=== PATIENT | male | born 1960 | race Caucasian/White ===

== ENCOUNTER 2021-05-14 08:36 | Outpatient (REF) | payer MEDICARE, MEDICAID, SELFPAY ==
--- NOTE | ~2021-05-14 | XR_ITS ---
EXAMINATION: XR SHOULDER, RIGHT CLINICAL INFORMATION: Pain in the shoulder COMPARISON: None TECHNIQUE: Three views of the right shoulder. FINDINGS: There is no fracture or dislocation. The right glenohumeral joint is well aligned. The joint space is maintained. The acromioclavicular joint is intact. The visualized lung is clear. The visualized ribs are intact. XR/XR shoulder RT min 2V IMPRESSION: Normal right shoulder.
== END 2021-05-14 08:37 | disposition home or self-care (01) ==
LOC: HO.HOSX 08:36
PROVIDERS: Visit Provider Orthopaedic Surgery
DX: M25.511 Pain in right shoulder (principal); M67.911 Unspecified disorder of synovium and tendon, right shoulder; I10 Essential (primary) hypertension; Z86.73 Personal history of transient ischemic attack (TIA), and cerebral infarction without residual deficits; Z88.7 Allergy status to serum and vaccine
CPT/HCPCS: 20610; 73030; 99202; J1100

== ENCOUNTER 2021-06-22 13:00 | Outpatient (RCR) | payer MEDICARE, MEDICAID, SELFPAY ==
--- NOTE | 2021-05-21 15:40 | MHC.PT.EP ---
[facility] [place] Office [place] Office [place] Office [address] Emanuel Rizvi [address] [phone] F: [phone] F: [phone] F: [phone] F: [phone] Physical Therapy Plan of Care Date of Evaluation: Date of Surgery: Diagnosis: RIGHT ROTATOR CUFF REPAIR Assessment: CRISTIN IS A PLEASANT 60 YO MALE S/P RIGHT ROTATOR CUFF INJURY. UPON EXAM HE PRESENTS WITH SIGNIFICANT LOSS OF RANGE, DECREASED STRENGTH WITH MUSCULAR LENGTH AND STRENGTH IMBALANCES LEADING TO POOR JOINT MECHANICS AND INCREASED PAIN. FUNCTIONAL LIMITATIONS INCLUDE DECREASED ABILITY TO PERFORM SELF CARE AND HOMEMAKING TASKS, DECREASED ABILITY TO PERFORM LIFTING REACHING, PUSHING, PULLING AND CARRYING. HE REPORTS DECREASED PARTICIPATION WITH COMMUNITY AND RECREATIONAL ACTIVITIES AND DISRUPTED SLEEP. A PT IS A GOOD CANDIDATE FOR SKILLED PT DUE TO AGE, POTENTIAL REMEDIATION OF IMPAIRMENTS, TYPICAL DISEASE/CONDITION PROGRESSION AND PROGNOSIS, COMORBIDITIES, AND MOTIVATION. PT WOULD BENEFIT FROM TAILORED PROGRAM OF THERAPEUTIC ACTIVITIES, FUNCTIONAL TRAINING, GAIT TRAINING, POSTURAL EDUCATION, NEUROMUSCULAR RE-EDUCATION, AND MODALITIES NEEDED. Frequency and Duration: The patient will be seen 2 X WEEK FOR 4 WEEKS UNTIL MD FOLLOW UP FOR REASSESS Short Term Goals: INITIATE HEP FOR AAROM AND UPPER BACK STRENGTHENING IN 2 VISITS EDUC IN AND PERFORM SELF MANAGEMENT OF SYMPTOMS IN 2 VISITS Prison Goals: 120 degrees of shoulder elevation with pain free ROM in 4 weeks UE strength at minimum 4/5 in 4 weeks To perform computer and work tasks without restriction and pain no greater than 2/10 [address] object at minimum of 5# into cabinet at shoulder height in 5 weeks Treatment Plan: Modalities to reduce pain, spasms and effusion. Manual therapy to restore motion and function. Therapeutic exercise to improve strength and flexibility. Neuromuscular re-education for posture and balance. Therapeutic activities to return to functional activities of daily living. Electronically signed by: Elma Berkowitz PT, DPT Please sign and return to therapist. Thank you for your referral.
--- NOTE | 2021-07-30 10:41 | MHC.PT.DC ---
[facility] [place] Office [place] Office [place] Office [address] Emanuel Rizvi [address] [phone] F: [phone] F: [phone] F: [phone] F: [phone] Physical Therapy Discharge Report Diagnosis: RIGHT ROTATOR CUFF REPAIR Date of Surgery: 01/12/21 DOI Date of Evaluation: 05/21/21 Date of Discharge: 06/22/21 Treatments to Date: 8 Cancellations to Date: 1 No Shows to Date: 0 Discharge Status: Discharge Summary: At last attended visit, pt arrived highly emotional due to reported pain, lack of sleep and limited shoulder use. 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 Lower with supine heat. right sh in POS. Pt ed on px management, relaxation and breathing techniques during session and was encouraged to follow up with orthopedics. Electronically signed by: Elma Berkowitz PT, DPT Please sign and return to therapist. Thank you for your referral.
== END 2021-07-30 10:42 | disposition home or self-care (01) ==
LOC: HO.PT 13:00
PROVIDERS: PCP Family Medicine; Visit Provider Orthopaedic Surgery
DX: M67.911 Unspecified disorder of synovium and tendon, right shoulder (principal)
CPT/HCPCS: 97110; 97161

== ENCOUNTER → 2021-06-25 08:33 | Outpatient (BNVA) | payer MEDICARE, MEDICAID, SELFPAY | PROVIDERS: PCP Family Medicine; Visit Provider Orthopaedic Surgery | DX: M75.101 Unspecified rotator cuff tear or rupture of right shoulder, not specified as traumatic (principal); Z86.73 Personal history of transient ischemic attack (TIA), and cerebral infarction without residual deficits | CPT/HCPCS: 99212 ==

== ENCOUNTER → 2021-07-23 11:25 | Outpatient (BNVA) | payer MEDICARE, MEDICAID, SELFPAY | PROVIDERS: PCP Nurse Practitioner Family; Visit Provider Physician Assistant | DX: Z01.818 Encounter for other preprocedural examination (principal); M67.911 Unspecified disorder of synovium and tendon, right shoulder | CPT/HCPCS: 99212 ==

== ENCOUNTER 2021-07-27 10:11 | Day surgery (SDC) | payer MEDICARE, MEDICAID, SELFPAY ==
[2021-07-23 15:50] VITALS: BMI 25.7
--- NOTE | 2021-07-26 10:51 | HO.ANESPROP2 ---
Documented by User: Fabiola Ruiz NP 07/26/21 10:52 HPI - Anesthesia Eval Consult details Narrative: 60yo M for Right Arthroscopic Rotator Cuff Repair hx of CVA 08/2020, mult TIA PMFSH Active Problems Active Problems: All Active Problems (Updated 07/13/21 @ 11:21 by KORI ZamoranoC) History of TIA (transient ischemic attack) (Acute) Essential hypertension (Acute) Encounter to establish care (Acute) History of stroke (Acute) Rotator cuff tear, right (Acute) Dysfunction of right rotator cuff (Acute) Past Medical History Medical History History of stroke History of TIA (transient ischemic attack) Hypertension Kidney stones Family History Family History Mother Essential hypertension Father CAD (coronary artery disease) Brother Brain cancer Surgical History Surgical History History of kidney surgery Previous back surgery Social History Social History Housing: Apartment Alcohol intake: current Alcohol intake frequency: holidays/special occasions only Patient Tobacco Use Status: Current everyday Tobacco user Tobacco use type: Cigarette Cigarettes Per Day: 6 e-Cigarette/Vaping Use: Never Used Second Hand Smoke Exposure: Yes Use of substances other than those prescribed or required for medical reasons: No Are you DNR?: No Advance Directives: No Advance Directives Information Provided: Yes service: No Current occupational status: disabled Cognitive needs: No Hearing needs: No Vision needs: No Meds Allergies Allergy/AdvReac Type Severity Reaction Status Date / Time pneumococcal vaccine Allergy Severe ANAPHYLAXIS Verified 07/27/21 10:43 [PNEUMOCOCCAL VACCINE] FLU VACCINE [id number] (3 YR Allergy Intermediate ANAPHYLAXIS Uncoded 07/23/21 11:38 +) Home Medications Medication Instructions Recorded Confirmed Last Taken Type atorvastatin 20 mg tablet 20 mg PO DAILY 05/14/21 07/23/21 Unknown History lisinopril 5 mg tablet 5 mg PO DAILY 05/14/21 07/23/21 Unknown History amlodipine 5 mg tablet mg 07/23/21 07/27/21 08:30 History clonidine HCl 0.1 mg tablet mg 07/23/21 Unknown History metoprolol tartrate 25 mg tablet 25 mg 07/23/21 07/27/21 08:30 History omeprazole 20 mg capsule,delayed 20 mg PO DAILY 07/23/21 07/23/21 07/27/21 08:30 History release quetiapine 25 mg tablet mg 07/23/21 Unknown History sertraline 50 mg tablet mg 07/23/21 Unknown History Exam Exam Date and Time: July 26, 2021 1051 Height,Weight and Vital Signs: Height 5 ft 11 in Weight 83.461 kg Assessment and Plan Assessment Anesthesia Assessment: Chart Reviewed Documented by User: Quinn Syed MD 07/27/21 12:47 PMFSH Past Medical History Medical History History of stroke History of TIA (transient ischemic attack) Hypertension Kidney stones Family History Family History Mother Essential hypertension Father CAD (coronary artery disease) Brother Brain cancer Family history of problems with anesthesia: No Surgical History Surgical History History of kidney surgery Previous back surgery History of Problems with Anesthesia: No Social History Social History Housing: Apartment Alcohol intake: current Alcohol intake frequency: holidays/special occasions only Patient Tobacco Use Status: Current everyday Tobacco user Tobacco use type: Cigarette Cigarettes Per Day: 6 e-Cigarette/Vaping Use: Never Used Second Hand Smoke Exposure: Yes Use of substances other than those prescribed or required for medical reasons: No Are you DNR?: No Advance Directives: No Advance Directives Information Provided: Yes service: No Current occupational status: disabled Cognitive needs: No Hearing needs: No Vision needs: No Meds Allergies Allergy/AdvReac Type Severity Reaction Status Date / Time pneumococcal vaccine Allergy Severe ANAPHYLAXIS Verified 07/27/21 10:43 [PNEUMOCOCCAL VACCINE] FLU VACCINE [id number] (3 YR Allergy Intermediate ANAPHYLAXIS Uncoded 07/23/21 11:38 +) Home Medications Medication Instructions Recorded Confirmed Last Taken Type atorvastatin 20 mg tablet 20 mg PO DAILY 05/14/21 07/23/21 Unknown History lisinopril 5 mg tablet 5 mg PO DAILY 05/14/21 07/23/21 Unknown History amlodipine 5 mg tablet mg 07/23/21 07/27/21 08:30 History clonidine HCl 0.1 mg tablet mg 07/23/21 Unknown History metoprolol tartrate 25 mg tablet 25 mg 07/23/21 07/27/21 08:30 History omeprazole 20 mg capsule,delayed 20 mg PO DAILY 07/23/21 07/23/21 07/27/21 08:30 History release quetiapine 25 mg tablet mg 07/23/21 Unknown History sertraline 50 mg tablet mg 07/23/21 Unknown History Exam Airway Mallampati Class: II TM Dist: >3cm Loose/Missing/Broken Teeth: Yes, Upper and Lower Assessment and Plan Assessment Anesthesia Assessment: Anesthesia Plan Discussed Final Anesthetic Review Family History of Problems with Anesthesia: No History of Problems with Anesthesia: No NPO: Yes ASA Class: III Final Preanesthetic Review: No Changes in Pt Med Stat, Meds/Allgs Chart Reviewed, Consent Obtained/Reviewed and Anes Risks/Benef Reviewed Patient Risk: Intermediate Procedure Risk: Intermediate Anesthetic Plan Anesthetic Plan: GA and Regional Block Disposition: Standard PACU
[2021-07-27] VITALS (17 sets, daily range): BP systolic 125–164; BP diastolic 87–104; PULSE 72–89; RESP 16–20; TEMP 36.6–37.2; O2SAT 94–99
--- NOTE | 2021-07-27 | ECG_ITS ---
Test Reason : preop Blood Pressure : / mmHG Vent. Rate : 078 BPM Atrial Rate : 078 BPM P-R Int : 170 ms QRS Dur : 108 ms QT Int : 372 ms P-R-T Axes : 062 076 078 degrees QTc Int : 424 ms Normal sinus rhythm Normal ECG No previous ECGs available Referred By: Fabiola Ruiz Electronically Signed By:ABI PEREZ
[2021-07-27 11:00] LABS: Hematocrit 48.1 % (42.0-52.0); Hemoglobin 15.8 g/dl (14.0-18.0); Mean Corpuscular HGB Conc 32.8 g/dl (31.0-36.0); Mean Corpuscular Hemoglobin 30.3 pg (27.0-33.0); Mean Corpuscular Volume 92.1 fL (80.0-98.0); Platelet Count 232 X10*3/uL (160-400); Red Blood Count 5.22 X10*6/uL (4.60-5.80); Red Cell Distribution Width 12.4 % (11.0-16.0); White Blood Count 6.8 X10*3/uL (4.8-10.8)
[2021-07-27 11:20] LABS: Anion Gap 11 (12-20); Blood Urea Nitrogen 18 mg/dL (9-16); Calcium 9.8 mg/dL (8.4-10.2); Carbon Dioxide 27 mmol/L (22-29); Chloride 107 mmol/L (96-108); Creatinine Clr Calc Pharmacy 63.2; Estimated Glomerular Filt Rate 56; Glucose Fasting 109 mg/dL (60-99); Potassium 4.6 mmol/L (3.3-5.1); Sodium 140 mmol/L (135-145)
[2021-07-27] MEDS: Lactated Ringers 1,000 ML 100 ML IVCONT (11:37)
--- NOTE | 2021-07-27 12:42 | MHC.SHP ---
Pre-Procedural Eval Section A Date of Service: 07/27/21 The patient is an INPATIENT: No Changes since office visit: Yes Patient answered all questions; No Cold of Flu in the past 2 weeks, No New Medical Problems and No Changes in Medication The History & Physical has been completed within 30 days and I have reviewed it.: Yes Section B Chief Complaint: disorder of synovium and tendon Allergies: Allergies Allergy/AdvReac Type Severity Reaction Status Date / Time pneumococcal vaccine Allergy Severe ANAPHYLAXIS Verified 07/27/21 10:43 [PNEUMOCOCCAL VACCINE] FLU VACCINE [id number] (3 YR Allergy Intermediate ANAPHYLAXIS Uncoded 07/23/21 11:38 +) Plan I have reviewed the history and physical and performed a pertinent physical examination on my patient. No changes have occurred unless specified.
--- NOTE | 2021-07-27 14:53 | PM.OP ---
Brief Operative Note Date of Service: 07/27/21 Pre-op diagnosis: right rtc tear Post-op diagnosis: same Procedure: right rtc repair Implants: galan and nephew Helacoil x3 Surgeon: Rich Nobles MD Anesthesia: GETA and regional Was an Exhibit Cleaner used for this Procedure?: Yes Exhibit Cleaner: Susy Newberry Estimated blood loss (mL): 10 IV fluids (mL): 1,000 Pathology: none sent Condition: stable Disposition: PACU
[2021-07-27] MEDS: fentaNYL citrate/PF 100 MCG/2 ML VIAL 50 MCG IVPUSH ×3 (15:27→18:34)
[2021-07-27] MEDS: oxyCODONE HCl Immed Release 5 MG TABLET 10 MG PO (16:19)
--- NOTE | 2021-07-31 09:35 | P.OP_ITS ---
Operative Note Operative Note Date of Service: 07/27/21 Narrative: Date of Service: 07/27/21 Pre-op diagnosis: right rtc tear Post-op diagnosis: same Procedure: right rtc repair and SAD Implants: galan and nephew Helacoil x3 Surgeon: Rich Nobles MD Anesthesia: GETA and regional Was an Account Financial Manager used for this Procedure?: Yes Account Financial Manager: Susy Newberry Estimated blood loss (mL): 10 IV fluids (mL): 1,000 Pathology: none sent Condition: stable Disposition: PACU Procedure in detail: Patient was brought to the operating room and placed the the beach chair position. All bony prominences were well padded and the limb was prepped and draped in standard sterile fashion. A time out was called to identify proper site, proper procedure and proper surgeon. IV antibiotics per weight were administered. I began by making a posterolateral stab incision with a 15 blade. A blunt trochar was placed into the glenohumeral joint and I insufflated the joint with saline and a 30 degree arthroscope was placed. I established an outside- in anterior portal just distal to the biceps tendon. I then began my inspection of the glenohumeral joint. There was mild synovitis of the anterior interval. Biceps and anchor were intact with mild labral fraying. Cartilage surfaces were normal and gutter was clean. There was a supraspinatus full thickness tear without retraction. The subscapulais was intact. I then removed the trochar and entered the subacromial space. A direct lateral portal was then established and I performed a bursectomy. The cuff was then examined. There was a full thickness crescentic tear of the anterior 1/3 of the supraspinatus with the leading edge intact. I placed one medial row double loaded anchors and used a scorpion to pass thes through the cuff. I added two looped sutures to the most anterior and posterior aspect of the repair. These 6 sutures were then brought to two lateral anchors in a cross bridge configuration. Prior to this is debrided the footprint down to bleeding bone. I then perfromed a 5 mm subacromial decompression. Once I was satisfied with the repair final images were captured and I removed all instrumentation. Portals were closed with nylon. Patient was placed in an abduction sling, extubated and brought to the recovery room in stable condition. There were no known complications.
== END 2021-07-27 19:51 | disposition home or self-care (01) ==
LOC: HO.SSS 10:12
PROVIDERS: Nurse Practitioner; PCP Family Medicine; Visit Provider Orthopaedic Surgery
PROC: (CPT 29827; principal; 2021-07-27 12:10)
DX: M75.101 Unspecified rotator cuff tear or rupture of right shoulder, not specified as traumatic (principal); M67.911 Unspecified disorder of synovium and tendon, right shoulder; M25.511 Pain in right shoulder; I10 Essential (primary) hypertension; Z86.73 Personal history of transient ischemic attack (TIA), and cerebral infarction without residual deficits; Z87.442 Personal history of urinary calculi; Z79.899 Other long term (current) drug therapy; Z88.7 Allergy status to serum and vaccine; F17.210 Nicotine dependence, cigarettes, uncomplicated
CPT/HCPCS: 29827; 29826; 36415; 80048; 85027; 93005; C1713; J0131; J0171; J0690; J1100; J2250; J2370; J2405; J3010

== ENCOUNTER → 2021-08-02 10:43 | Outpatient (BNVA) | payer MEDICARE, MEDICAID, SELFPAY | PROVIDERS: Visit Provider Physician Assistant | DX: Z98.890 Other specified postprocedural states (principal) | CPT/HCPCS: 99212 ==

== ENCOUNTER → 2021-09-03 11:27 | Outpatient (BNVA) | payer MEDICARE, MEDICAID, SELFPAY | PROVIDERS: Visit Provider Physician Assistant | DX: Z47.89 Encounter for other orthopedic aftercare (principal); Z98.890 Other specified postprocedural states | CPT/HCPCS: 99212 ==

== ENCOUNTER → 2021-09-13 13:13 | Outpatient (BNVA) | payer MEDICARE, MEDICAID, SELFPAY | PROVIDERS: Visit Provider Orthopaedic Surgery | DX: Z98.890 Other specified postprocedural states (principal) | CPT/HCPCS: 99212 ==

== ENCOUNTER 2021-11-05 14:00 | Outpatient (RCR) | payer MEDICARE, MEDICAID, SELFPAY ==
--- NOTE | 2021-08-02 14:58 | MHC.PT.EP ---
[facility] [place] Office [place] Office [place] Office [address] Emanuel Rizvi [address] [phone] F: [phone] F: [phone] F: [phone] F: [phone] Physical Therapy Plan of Care Date of Evaluation: Date of Surgery: 07/27/21 Diagnosis: S/P RIGHT ROTATOR CUFF (SS) W/ SAD 07/27/21 Assessment: CRISTIN IS A PLEASANT 60 YO GENTLEMAN WHO PRESENTS POST-OP RIGHT RTC REPAIR. HE PRESENTS TODAY, POD #6 FOR ORTHOPEDIC FOLLOW UP AND PT EVALUATION. UPON EXAM HE DEMONSTRATES THE EXPECTED IMPAIRMENTS OF DECREASED ROM, DECREASED STRENGTH, ALTERED POSTURE AND POSITIONING, INCREASED UPPER TRAP GUARDING, AND INCREASED PAIN AND EDEMA. FUNCTIONAL LIMITATIONS INCLUDE DECREASED ABILITY TO PERFORM HOMEMAKING AND SELF-CARE TASKS, DECREASED ABILITY TO PERFORM PUSHING, PULLING, LIFTING AND REACHING. INABILITY TO DRIVE AND PERFORM WORK TASKS, DECREASED PARTICIPATION IN COMMUNITY AND RECREATIONAL ACTIVITIES AND DISRUPTED SLEEP. A PT IS A GOOD CANDIDATE FOR SKILLED PT DUE TO AGE, POTENTIAL REMEDIATION OF IMPAIRMENTS, TYPICAL DISEASE/CONDITION PROGRESSION AND PROGNOSIS, COMORBIDITIES, AND MOTIVATION. PT WOULD BENEFIT FROM TAILORED PROGRAM OF THERAPEUTIC ACTIVITIES, FUNCTIONAL TRAINING, GAIT TRAINING, POSTURAL EDUCATION, NEUROMUSCULAR RE-EDUCATION, AND MODALITIES NEEDED. Frequency and Duration: The patient will be seen 2 X WEEK FOR 4 WEEKS Short Term Goals: INITIATE HEP AND PROMOTE SELF MANAGEMENT OF SYMPTOMS INCREASE PROM Intermediate Goals: IN 12 WEEKS FULL, PAIN FREE ROM FULL UE STRENGTH, PAIN FREE TO PERFORM HOMEMAKING TASKS WITHOUT RESTRICTION AND PAIN NO GREATER THAN 2/[address] OBJECT AT MINIMUM OF 5# INTO CABINET AT SHOULDER HEIGHT Treatment Plan: Modalities to reduce pain, spasms and effusion. Manual therapy to restore motion and function. Therapeutic exercise to improve strength and flexibility. Neuromuscular re-education for posture and balance. Therapeutic activities to return to functional activities of daily living. Electronically signed by: JEYSON ELAM PT, DPT Please sign and return to therapist. Thank you for your referral.
== END 2021-11-28 11:01 | disposition home or self-care (01) ==
LOC: HO.PT 14:00
PROVIDERS: Visit Provider Physician Assistant
DX: Z98.890 Other specified postprocedural states (principal)
CPT/HCPCS: 97110; 97112; 97140; 97162

== ENCOUNTER 2021-12-21 14:13 | Emergency (ER) | payer MEDICARE, MEDICAID, SELFPAY ==
--- NOTE | ~2021-12-21 | XR_ITS ---
EXAMINATION: XR LUMBOSACRAL SPINE CLINICAL INFORMATION: Low back pain COMPARISON: Lumbar spine radiographs on 01/09/2012 TECHNIQUE: Three views of the lumbosacral spine. FINDINGS: The vertebral bodies and posterior elements are normal. The disc spaces are preserved and the vertebral alignment is normal. The paraspinal soft tissues are normal. There is a posterior-lateral fusion at L3-L4. No periprosthetic loosening or fracture. XR/XR lumbar spine 2-3V IMPRESSION: No acute abnormality. Expected alignment the orthopedic hardware.
[2021-12-21 15:50] VITALS: BP 191/112; PULSE 97; RESP 16; TEMP 36.6; O2SAT 97; BMI 23.0
--- NOTE | 2021-12-21 17:28 | ED_ITS ---
HPI - General Adult General Chief complaint: Back Pain/Injury Stated complaint: severe back pain Time Seen by Provider: 12/21/21 17:28 Source: patient Mode of arrival: ambulatory Limitations: no limitations History of Present Illness HPI narrative: Patient is a 61 year old male presenting to the emergency department today with left sided low back pain that radiates down his left leg. Patient states that 5 days ago he woke up with left sided low back pain that radiates down his left leg. Patient states that he had a back surgery years ago and this pain feels different. Patient states that he didn't do anything in particular but has been sitting differently while riding his bicycle. Patient denies any dizziness, lightheadedness, abdominal pain, nausea, vomiting, fever, chills, blurry vision, double vision, loss of vision, chest pain, difficulty breathing, shortness of breath, night sweats, pain with urination, increased urinary frequency, increased urinary urgency, blood in his urine or stool, syncope or a near syncopal episode, recent trauma or falls, bowel incontinence, bladder incontinence, bowel retention, bladder retention, or any other complaints at this time. Onset (ago): day(s) (5) Location: back Radiation: extremity and distal Severity: mild Severity scale (1-10): 3 Quality: burning and stabbing Pain Consistency: intermittent Relieving factors: none Exacerbating factors: movement Associated symptoms: denies other symptoms Treatments prior to arrival: none Related Data Home Medications Medication Instructions Recorded Confirmed atorvastatin 20 mg tablet 20 mg PO DAILY 05/14/21 11/02/21 lisinopril 5 mg tablet 5 mg PO DAILY 05/14/21 11/02/21 amlodipine 5 mg tablet mg 07/23/21 11/02/21 clonidine HCl 0.1 mg tablet mg 07/23/21 11/02/21 metoprolol tartrate 25 mg tablet 25 mg 07/23/21 11/02/21 omeprazole 20 mg capsule,delayed 20 mg PO DAILY 07/23/21 11/02/21 release quetiapine 25 mg tablet mg 07/23/21 11/02/21 sertraline 50 mg tablet mg 07/23/21 11/02/21 Previous Rx's Medication Instructions Recorded cyclobenzaprine 5 mg tablet 5 mg PO TID PRN low back pain 7 12/21/21 days #21 tabs Allergies Allergy/AdvReac Type Severity Reaction Status Date / Time pneumococcal vaccine Allergy Severe ANAPHYLAXIS Verified 11/02/21 14:34 [PNEUMOCOCCAL VACCINE] Penicillins [PCN] Allergy Hives Verified 11/02/21 14:34 FLU VACCINE [id number] (3 YR Allergy Intermediate ANAPHYLAXIS Uncoded 11/02/21 14:34 +) Review of Systems Constitutional: Constitutional: Reports no additional constitutional complaints, Denies chills, Denies fever(s) and Denies night sweats Eyes: Eyes: Reports no additional eye complaints, Denies blurry vision, Denies change in vision, Denies diplopia, Denies eye discharge, Denies loss of vision and Denies eye pain ENT: Denies dizziness Cardiovascular: Cardiovascular: Reports no additional cardiovascular complaints, Denies chest pain, Denies lightheadedness, Denies Loss of Consciou sness and Denies dyspnea Respiratory: Respiratory: Reports no additional respiratory complaints and Denies dyspnea Gastrointestinal: Gastrointestinal: Reports no additional gastrointestinal complaints, Denies abdominal pain, Denies melena, Denies hematochezia, Denies change in bowel habits and Denies change in stool character Genitourinary: Genitourinary: Reports no additional male genitourinary complaints, Denies hematuria, Denies oliguria, Denies difficulty urinating, Denies dysuria, Denies urinary frequency, Denies urinary hesitancy, Denies urinary incontinence and Denies urinary urgency Musculoskeletal: Musculoskeletal: Reports no additional musculoskeletal complaints, Reports back pain, Denies numbness and Denies tingling Neurologic: Denies dizziness, Denies loss of vision, Denies numbness and Denies tingling Psychiatric: Psychiatric: Reports no additional psychiatric complaints Endocrine: Endocrine: Reports no additional endocrine complaints Hematologic/Lymphatic: Hematologic/Lymphatic: Reports no additional hematologic/lymphatic complaints Allergic/Immunologic: Allergic/Immunologic: Reports no additional allergic/ immunologic complaints [facility] Past Medical History Attestation statement: The following information was validated with the patient. Source: old records reviewed Medical History History of stroke History of TIA (transient ischemic attack) Hypertension Kidney stones Surgical History History of kidney surgery Previous back surgery Family History Family History Mother Essential hypertension Father CAD (coronary artery disease) Brother Brain cancer Social History Social History Housing: Apartment Alcohol intake: current Alcohol intake frequency: holidays/special occasions only Patient Tobacco Use Status: Current everyday Tobacco user Tobacco use type: Cigarette Cigarettes Per Day: 6 e-Cigarette/Vaping Use: Never Used Second Hand Smoke Exposure: Yes Advance Directives: No Advance Directives Information Provided: No service: No Current occupational status: disabled Cognitive needs: No Hearing needs: No Vision needs: No Physical Exam ED Vital Signs: Vital Signs - 24 hr 12/21/21 15:50 Temperature 97.9 F Pulse Rate 97 Respiratory Rate 16 Blood Pressure 191/112 H Pulse Oximetry 97 Oxygen Delivery Method Room Air BMI result Body Mass Index 23.0 Const General: cooperative, no acute distress, alert and awake Nutritional Appearance: well nourished Orientation/consciousness: patient oriented x3 Limitations: no limitations HENMT Head: Yes normal to inspection and Yes atraumatic Ears: hearing grossly normal bilaterally and external ears normal General nose exam: Normal external nose present, no nasal discharge noted and no epistaxis Face and sinus: Yes normal facial exam, No abrasion and No laceration Mouth: Normal oral and palatal mucosa present, no drooling and no muffled voice Eyes General: appearance normal, both eyes and all related structures Periorbital: periorbital findings normal Eyelids: Yes eyelids normal Conjunctivae: conjunctivae normal Pupils: Equal, round and reactive pupils present EOM: EOMs intact bilaterally Neck Neck: Yes normal visual inspection, Yes full ROM and Yes no lymphadenopathy Chest Chest palpation & inspection: normal inspection of the chest Resp Effort & Inspection: normal respiratory effort and able to speak in complete sentences Auscultation: clear to auscultation bilaterally Cardio Rate: regular rate Rhythm: regular rhythm GI Inspection: Yes normal to inspection General: Yes no CVA tenderness Back/Spine/Pelvis Back: no CVA tenderness Cervical Spine: normal cervical lordosis and cervical ROM normal Thoracic/Lumbar Spine: thoracic and lumbar spine normal to inspection and thoraco-lumbar ROM normal Pelvis: no pain with anterior-posterior compression Neuro General: patient oriented x3 and moves all extremities Cranial nerves: Yes Equal, round and reactive pupils present Cognition (Neuro): normal cognition Motor exam (neuro): 5/5 motor strength present throughout Sensory Exam: Normal double simultaneous stimulation for sensation Coordination: [id number] test normal Extrem General: Yes normal to inspection, Yes full ROM and Yes capillary refill normal Psych Appearance: grossly normal Mental Status: mental status grossly normal Affect: normal affect Attitude: cooperative Thought process: Normal thought process present Thought content: Normal thought content present Insight: Good insight present (Psych) NIH Stroke Scale Internal: Initial- Upon Arrival Time: 17:28 Level of Consciousness: Alert Level of Consciousness Questions: Answers both questions correctly Level of Consciousness Commands: Performs both tasks correctly Best Gaze: Normal Visual: No visual loss Facial Palsy: Normal Motor Arm (Right): No drift Motor Arm (Left): No drift Motor Leg (Right): No drift Motor Leg (Left): No drift Limb Ataxia: Absent Sensory: Normal Best Language: No aphasia Dysarthia: Normal Extinction and Inattention: No abnormality Score: 0 Medical Decision Making MDM Narrative Medical decision making narrative: Patient is a 61 year old male presenting to the emergency department today with low back pain that radiates down his left leg. Patient's physical exam was unremarkable. Patient's lumbar x-ray showed no acute process. I explained my physical exam findings as well as all test results to the patient. I answered all questions asked by the patient. Patient received IM Toradol, PO Ativan, and PO Flexeril which he stated helped his pain significantly. I stressed the importance of the patient taking his medication as prescribed. I stressed the importance of the patient following up with his primary care provider and neurosurgeon. I stressed the importance of the patient returning to the emergency department immediately if his symptoms were to worsen or if he were to develop any dizziness, shortness of breath, difficulty breathing, chest pain, blurry vision, loss of vision, nausea, vomiting, abdominal pain, fever, chills, back pain, or any other complaints. Patient verbalized agreement and understanding with this treatment plan and discharge. Differential Diagnosis Differential Diagnosis: sciatic nerve pain Medical Records Medical records reviewed: Yes I reviewed the patient's medical records. Imaging Data Lumbar x-ray: Attestation: I personally reviewed and interpreted this imaging study as emily rocha: My impression: No acute process. Radiologist's impression: EXAMINATION: XR LUMBOSACRAL SPINE CLINICAL INFORMATION: Low back pain COMPARISON: Lumbar spine radiographs on 01/09/2012 TECHNIQUE: Three views of the lumbosacral spine. FINDINGS: The vertebral bodies and posterior elements are normal. The disc spaces are preserved and the vertebral alignment is normal. The paraspinal soft tissues are normal. There is a posterior-lateral fusion at L3-L4. No periprosthetic loosening or fracture. XR/XR lumbar spine 2-3V IMPRESSION: No acute abnormality. Expected alignment the orthopedic hardware. Dictated By: Celia Laws MD Signed By: Electronically signed by Celia Laws MD 12/21/21 9832 Discharge Plan Discharge Clinical Impression: Sciatica Patient Disposition: Home, Self-Care Instructions: Sciatica (ED) Additional Instructions: Follow up with your primary care provider and your neurosurgeon. Return to the emergency department immediately if your symptoms worsen or if you develop any dizziness, shortness of breath, difficulty breathing, chest pain, blurry vision, loss of vision, nausea, vomiting, abdominal pain, fever, chills, back pain, or any other complaints. Prescriptions: New cyclobenzaprine 5 mg tablet 5 mg PO TID PRN (Reason: low back pain) 7 Days Qty: 21 0RF No Action quetiapine 25 mg tablet clonidine HCl 0.1 mg tablet amlodipine 5 mg tablet omeprazole 20 mg capsule,delayed release(DR/EC) 20 mg PO DAILY sertraline 50 mg tablet metoprolol tartrate 25 mg tablet 25 mg lisinopril 5 mg tablet 5 mg PO DAILY atorvastatin 20 mg tablet 20 mg PO DAILY Referrals: [facility] Family Medicine [Provider Group] (Call to establish with a primary care bing castellano, if you already have a primary care provider, please call and follow up with them. ) [facility] [Provider Group] (Call to establish with a primary care provider, if you already have a primary care provider, please call and follow up with them. ) [facility] (Call to establish with a primary care provider, if you already have a primary care provider, please call and follow up with them. ) [facility] [Physician] - (Call to establish with a primary care provider, if you already have a primary care provider, please call and follow up with them. ) Interventions: ED Discharge Assessment Last Done: 12/21/21 19:22 Discharge Date/Time: 12/21/21 19:22 Print Language: [place]
[2021-12-21] MEDS: LORazepam 1 MG TABLET 2 MG PO (17:54)
[2021-12-21] MEDS: Ketorolac Tromethamine 15 MG/ML VIAL IM (17:54)
[2021-12-21] MEDS: Cyclobenzaprine HCl 5 MG TABLET PO (17:58)
== END 2021-12-21 19:22 | disposition home or self-care (01) ==
PROVIDERS: Emergency Provider Student in an Organized Health Care Education/Training Program
DX: M54.42 Lumbago with sciatica, left side (principal); I10 Essential (primary) hypertension; F17.210 Nicotine dependence, cigarettes, uncomplicated; Z86.73 Personal history of transient ischemic attack (TIA), and cerebral infarction without residual deficits
CPT/HCPCS: 72100; 96372; 99283; 99284; J1885

== ENCOUNTER → 2022-02-11 13:33 | Outpatient (BNVA) | payer MEDICARE, MEDICAID, SELFPAY | PROVIDERS: Visit Provider Internal Medicine | DX: M54.50 Low back pain, unspecified (principal); M96.1 Postlaminectomy syndrome, not elsewhere classified | CPT/HCPCS: 99202 ==

== ENCOUNTER 2022-02-14 08:16 | Outpatient (REF) | payer MEDICARE, MEDICAID, SELFPAY ==
--- NOTE | ~2022-02-14 | MR_ITS ---
MR LUMBAR SPINE WITHOUT AND WITH IV CONTRAST CLINICAL INFORMATION: Postlaminectomy syndrome. COMPARISON: Lumbar spine radiographs 12/21/2021. TECHNIQUE: MRI of the lumbar spine was obtained using routine sequences with and without contrast. Intravenous contrast: Gadavist 8 mL FINDINGS: There are 5 nonrib-bearing lumbar-type vertebral bodies. Redemonstrated postoperative changes following left hemilaminectomy/facetectomy and right-sided posterior instrumented fusion at L3-L4. There is moderate to severe disc volume loss at L3-L4. There are Modic type II endplate signal changes at L3-L4. Modic type I endplate signal changes at T11-T12, L4-L5, and L5-S1. Vertebral body heights are maintained. The conus terminates at the L1 level. No pathologic intrathecal enhancement. No pathologic enhancement along the cauda equina nerve roots. No significant extra spinal soft tissue findings. L1-L2: Small annular disc bulge. No central canal stenosis and no foraminal stenosis. L2-L3: Diffuse annular disc bulge eccentric to the left and moderate bilateral facet arthropathy. Findings in concert result in left subarticular zone stenosis with mild mass effect on the traversing left L3 nerve root. No central canal stenosis and no significant foraminal stenosis. L3-L4: Postoperative changes as discussed above. Left lateral osteophytic ridging results in left-sided foraminal encroachment with possible mass effect on the exiting left L3 nerve root. No central canal and no right foraminal stenosis. There is some enhancing granulation/scar tissue along the exiting left nerve root as well. L4-L5: Diffuse annular disc bulge with a superimposed shallow left paracentral disc protrusion resulting in mild posterior deflection of the traversing left L5 nerve root within the left subarticular zone. No central canal stenosis. Advanced right-sided facet arthropathy result in moderate right-sided foraminal stenosis and mass effect on the exiting right L4 nerve root. L5-S1: Diffuse disc osteophyte complex and moderate bilateral facet arthropathy. Moderate to severe right and moderate left foraminal stenosis with compression of the exiting right L5 nerve root. MR/MR lumbar spine wo/w con IMPRESSION: - Redemonstrated postoperative changes following left hemilaminectomy/facetectomy and right-sided posterior instrumented fusion at L3-L4. Left lateral osteophytic ridging results in left-sided foraminal encroachment with possible mass effect on the exiting left L3 nerve root. There is some enhancing granulation/scar tissue along the exiting left nerve root as well. - At the junctional L2-L3 level, multifactorial degenerative changes result in left subarticular zone stenosis with mild mass effect on the traversing left L3 nerve root. - At L4-L5, a shallow left paracentral disc protrusion results in mild posterior deflection of the traversing left L5 nerve root within the left subarticular zone and advanced right-sided facet arthropathy results in moderate right-sided foraminal stenosis and mass effect on the exiting right L4 nerve root. - At L5-S1, disc osteophyte and facet arthropathy result in moderate to severe right foraminal stenosis with mass effect on the exiting right L5 nerve root.
== END 2022-02-14 08:17 | disposition home or self-care (01) ==
LOC: HO.MRI 08:16
PROVIDERS: Visit Provider Nurse Practitioner Family
DX: M54.50 Low back pain, unspecified (principal); M96.1 Postlaminectomy syndrome, not elsewhere classified
CPT/HCPCS: 72158; A9585

== ENCOUNTER 2022-04-17 06:16 | Outpatient (REF) | payer MEDICARE, MEDICAID, SELFPAY ==
--- NOTE | ~2022-04-17 | FL_ITS ---
EXAMINATION: XR FLUOROSCOPY WITH IMAGES CLINICAL INFORMATION: Postlaminectomy syndrome. COMPARISON: Lumbar MRI of 02/14/2022. TECHNIQUE: Fluoroscopy Supervised By: Dr. Fady Champion. Fluoroscopy Time: 0.2 minutes. Cumulative Dose: 7.43 mGy. DAP: 1.23 Gycm2. Images: 2. FINDINGS: Needle is seen overlying posterior aspect of the coccyx. FL/FL guidance in treatment room IMPRESSION: Intraoperative fluoroscopy for pain management procedure.
== END 2022-04-17 06:17 | disposition home or self-care (01) ==
LOC: CF 06:16
PROVIDERS: Visit Provider Internal Medicine
DX: M96.1 Postlaminectomy syndrome, not elsewhere classified (principal); M54.16 Radiculopathy, lumbar region
CPT/HCPCS: 62323; Q9965

== ENCOUNTER 2024-05-17 11:19 | Outpatient (AMB) | payer MEDICARE, SELFPAY ==
--- NOTE | 2024-05-17 11:30 | A.OFFVIS_ITS ---
Vital Signs 05/17/24 11:33 Height 5 ft 11 in Weight 170 lb BMI 23.7 Intake Visit Reasons: New prob Lt shoulder/bicep injury DOI 05/07/24 Intake Note: Isaias is a 63 year old right hand dominant male who presents today for a new problem visit. Patient reports that he slipped and fell on black ice 05/07/24. He was seen at [facility] ED the day after injury. Patient reports that he is having unbearable pain. Pain is felt in the bicep that radiates up the arm and to the neck. Allergies pneumococcal vaccine [PNEUMOCOCCAL VACCINE] Allergy (Severe, Verified 05/17/24 11:32) ANAPHYLAXIS Penicillins [PCN] Allergy (Verified 05/17/24 11:32) Hives FLU VACCINE 3529-4430 (3 YR +) Allergy (Intermediate, Uncoded 05/17/24 11:32) ANAPHYLAXIS HPI HPI New prob Lt shoulder/bicep injury DOI 05/07/24: Details: Isaias is a 63 year old right hand dominant male who presents today for a new problem visit. Patient reports that he slipped and fell on black ice 05/07/24. He was seen at [facility] ED the day after injury. Patient reports that he is having unbearable pain. Pain is felt in the bicep that radiates up the arm and to the neck. [facility] Medical History Encounter to establish care History of stroke History of TIA (transient ischemic attack) Hypertension Kidney stones Surgical History History of kidney surgery History of rotator cuff surgery Previous back surgery Family History Mother Essential hypertension Father CAD (coronary artery disease) Brother Brain cancer Social History Housing: Apartment Alcohol intake: current Alcohol intake frequency: holidays/special occasions only Patient Tobacco Use Status: Current everyday Tobacco user Tobacco use type: Cigarette Cigarettes Per Day: 6 e-Cigarette/Vaping Use: Never Used Second Hand Smoke Exposure: Yes service: No Current occupational status: disabled Cognitive needs: No Hearing needs: No Vision needs: No Physical Exam Vital Signs: BMI result Body Mass Index 23.7 Extrem Other: No bony tenderness to palpation right arm. Passive external rotation to 35 degrees. No appreciable defect but active abduction and forward flexion are difficult. Assessment & Plan Assessment & Plan (1) Strain of left biceps: Code(s): S46.212A - Strain of muscle, fascia and tendon of other parts of biceps, left arm, initial encounter Category: Medical Plan: Patient is 3 days status post injury to his left arm. He can have his arm passively manipulated but having difficulty with abduction and forward flexion. I recommend physical therapy and he can see me if his symptoms do not improve but at this point there is no intervention warranted. Orders: Orders PT Evaluation and Treatment Today S46.212A - Strain of muscle, fascia and tendon of other parts of biceps, left arm, initial encounter Coding Level of Care Code Est Pt Level 3 (79372) Diagnoses Strain of left biceps S46.212A
[2024-05-17 11:33] VITALS: BMI 23.7
== END 2024-05-17 11:42 | disposition home or self-care (01) ==
PROVIDERS: PCP Nurse Practitioner Family; Visit Provider Orthopaedic Surgery
DX: S46.212A Strain of muscle, fascia and tendon of other parts of biceps, left arm, initial encounter (principal)
CPT/HCPCS: 99213

== ENCOUNTER 2024-07-26 10:40 | Outpatient (RCR) | payer MEDICARE, OTHER, SELFPAY ==
--- NOTE | 2024-06-03 15:50 | MHC.PT.EP ---
[facility] [place] Office [place] Office [place] Office [address] Emanuel Rizvi [address] [phone] F: [phone] F: [phone] F: [phone] F: [phone] Physical Therapy Plan of Care Date of Evaluation: 06/03/24 Date of Surgery: Diagnosis: LEFT SHOULDER PAIN-> STRAIN OF LEFT BICEP Assessment: 63 YO MALE REF TO PT W Lt SH / BICEP PAIN S/P FALL ON 05/07/24. HE IS Rt HAND DOMINANT- THE Pt RESIDES ALONE IN AN APT, HE NOTES HIS NEIGHBORS ASSIST HIM. HE HAS A H/O Rt RC REPAIR. OBJECTIVELY, THE Pt HAS DECR ROM Lt SH, DECR POSTURAL AWARENESS, WEAKNESS IN POST RC/ SCAP MM, AND PAIN IN Lt SH AND ELBOW IMPACTING ALL ADLs. HE IS A GOOD CANDIDATE FOR PT TO ADDRESS THE ABIVE FINDINGS, PAIN AND SX MGMT, POSTURAL ED, AND DEV HEP. HE IS MOTIVATED FOR PT. Frequency and Duration: The patient will be seen 2 x WK x 5 WKS Short Term Goals: DECR PAIN IN Lt SH TO 2-3 / 10 Pt INDEP W SELF POSTURAL CORRECTION TO REDUCE INITIATE HEP -> INCREASE Lt SH ROM ACTIVATE POST RC/ SCAP RETR/ DEPR [facility] Goals: Pt INDEP W HEP AND SELF CORRECT POSTURE Pt ABLE TO RESUME 50% ADLs , USING Lt UE IMPROVED SPADI (AT EVAL 130/130) Pt DEMON IMPROVED, FUNCTIONAL ROM Lt SH Treatment Plan: Modalities to reduce pain, spasms and effusion. Manual therapy to restore motion and function. Therapeutic exercise to improve strength and flexibility. Neuromuscular re-education for posture and balance. Therapeutic activities to return to functional activities of daily living. Electronically signed by: JOSEFINA ARMSTRONG,PT Please sign and return to therapist. Thank you for your referral.
--- NOTE | 2024-08-20 10:15 | MHC.PT.DC ---
[facility] [place] Office [place] [facility] [place] Office [address] Emanuel Rizvi [address] [phone] F: [phone] F: [phone] F: [phone] F: [phone] Physical Therapy Discharge Report Diagnosis: LEFT SHOULDER PAIN-> STRAIN OF LEFT BICEP Date of Surgery: Date of Evaluation: 06/03/24 Date of Discharge: 08/20/24 Treatments to Date: 7 Cancellations to Date: 3 No Shows to Date: 2 Discharge Status: Improved Function Patient Elected to Stop Discharge Summary: CRISTIN HAS HAD DECR TOLERANCE TO PT AND REG ADLs, EVEN MODIFIED ACTIVITIES DUE TO Lt SH PAIN; THERE IS PALPABLE SHIFT Lt ANT SH W AROM ATTEMPTS, HE HAS CONT REPORTS OF RADIC SXS Lt DISTAL UE SINCE HIS FALL- WE HAVE BEEN ADDRESSING CLOSED CHAIN / STAB EDVIN/ POSTURAL ED, AND ASSTD ROM W/O PAIN REDUCTION, BUT, AT TIMES CRISTIN DISPLAYS IMPROVED AROM/ REACH, ETC W Lt UE AND W/O EXACERBATION OF SXS ..CRISTIN HAS DECENT COMPREHENSION RE IMPORTANCE OF ROM, ISOMETRICS, AND CLOSED CHAIN EXER. HE HAS A F/U WITH ORTHO TO DISCUSS OPTIONS. CRISTIN MET HIS GOALS TO HIS MAXIMAL POTENTIAL AT THIS TIME AND IS D/C'D FROM PT. Electronically signed by: JOSEFINA ARMSTRONG,PT Please sign and return to therapist. Thank you for your referral.
== END 2024-08-20 10:16 | disposition home or self-care (01) ==
LOC: HO.PT 10:40
PROVIDERS: PCP Nurse Practitioner Family; Visit Provider Orthopaedic Surgery
DX: M25.512 Pain in left shoulder (principal); S46.212D Strain of muscle, fascia and tendon of other parts of biceps, left arm, subsequent encounter
CPT/HCPCS: 97110; 97140; 97162; 97535

== ENCOUNTER 2024-08-05 14:43 | Outpatient (AMB) | payer MEDICARE, SELFPAY ==
--- NOTE | 2024-08-05 14:44 | MHC.OFFVIS ---
Intake Visit Reasons: OV- Left shoulder pain Intake Note: Isaias is a 63 year old right hand dominant male who presents today for a new problem visit. Patient reports that he slipped and fell on black ice 05/07/24. Struggling with abduction and forward flexion. He was referred to Physical therapy. He reports that his pain is improving as well as his ROM, but he would like to discuss surgery. Allergies pneumococcal vaccine [PNEUMOCOCCAL VACCINE] Allergy (Severe, Verified 05/17/24 11:32) ANAPHYLAXIS Penicillins [PCN] Allergy (Verified 05/17/24 11:32) Hives FLU VACCINE [id number] (3 YR +) Allergy (Intermediate, Uncoded 05/17/24 11:32) ANAPHYLAXIS HPI HPI OV- Left shoulder pain: Details: Isaias comes in today with continued left shoulder pain. He states he is having numbness over the entirety of the dorsum of his left forearm and hand. This has been progressing since his injury proximally 3 months ago. He has done physical therapy and still feels shoulder pain. He describes neck pain on the left as well. COUNTS INCLUDE 234 BEDS AT THE [facility] Medical History Encounter to establish care History of stroke History of TIA (transient ischemic attack) Hypertension Kidney stones Surgical History History of kidney surgery History of rotator cuff surgery Previous back surgery Family History Mother Essential hypertension Father CAD (coronary artery disease) Brother Brain cancer Social History Housing: Apartment Alcohol intake: current Alcohol intake frequency: holidays/special occasions only Patient Tobacco Use Status: Current everyday Tobacco user Tobacco use type: Cigarette Cigarettes Per Day: 6 e-Cigarette/Vaping Use: Never Used Second Hand Smoke Exposure: Yes service: No Current occupational status: disabled Cognitive needs: No Hearing needs: No Vision needs: No Physical Exam Extrem Other: On exam there continues to be positive Almendarez and Neer and a positive empty can with active abduction to 75 degrees with recruitment. More concerning however is the subjective description of numbness over the dorsum of his forearm extending down hip to the tips of his fingers. This does not include the thumb. It does not include the volar surfaces. This is worse at night and really bothering him. Assessment & Plan Assessment & Plan (1) Cervical radiculopathy: Code(s): M54.12 - Radiculopathy, cervical region Category: Medical Plan: I am concerned about his numbness in a his forearm. I ordered an MRI of the cervical spine. (2) Arm numbness left: Code(s): R20.0 - Anesthesia of skin Category: Medical Plan: (3) Left shoulder pain: Code(s): M25.512 - Pain in left shoulder Category: Medical Plan: If his MRI is unremarkable for his cervical spine we will continue to address the shoulder but no acute intervention warranted. I recommend he continue his home exercises. Orders: Orders MR cervical spine wo con 08/05/24 R20.0 - Anesthesia of skin Coding Level of Care Code Est Pt Level 4 (91504) Diagnoses Cervical radiculopathy M54.12 Arm numbness left R20.0 Left shoulder pain M25.512
== END 2024-08-05 15:30 | disposition home or self-care (01) ==
LOC: HO.HOS 14:43
PROVIDERS: PCP Nurse Practitioner Family; Visit Provider Orthopaedic Surgery
DX: M54.12 Radiculopathy, cervical region (principal); R20.0 Anesthesia of skin; M25.512 Pain in left shoulder
CPT/HCPCS: 99214

== ENCOUNTER → 2024-08-05 14:43 | Outpatient (BNVA) | payer MEDICARE, SELFPAY | PROVIDERS: PCP Nurse Practitioner Family; Visit Provider Orthopaedic Surgery | DX: M54.12 Radiculopathy, cervical region (principal); M25.512 Pain in left shoulder; R20.0 Anesthesia of skin; Z91.81 History of falling | CPT/HCPCS: 99212 ==

== ENCOUNTER 2024-08-25 12:48 | Outpatient (REF) | payer MEDICARE, SELFPAY ==
--- NOTE | ~2024-08-25 | MR_ITS ---
EXAMINATION: MR CERVICAL SPINE WITHOUT CONTRAST CLINICAL INFORMATION: Anesthesia of skin. COMPARISON: None available. TECHNIQUE: MRI of the cervical spine was obtained using routine sequences without contrast. FINDINGS: Craniocervical junction is intact and normal. No bone marrow STIR signal abnormality. Grade 1 retrolisthesis C3-4. Mild multilevel disc desiccation. The cervical spinal cord signal is normal. There is a trace of fluid signal characteristic abnormality in the dependent portion of the upper trachea. C2-3: No central spinal canal or neuroforamina stenosis. Right-sided facet joint hypertrophy. Thickened lamina C2 and C3. C3-4: Broad-based disc osteophyte complex formation. Grade 1 retrolisthesis. Effacement of the thecal sac and the ventral aspect and abutting the cord. No cord signal abnormality. Bilateral facet joint hypertrophy. Bilateral neuroforamina narrowing. C4-5: No central spinal canal or neuroforamina stenosis. Facet joint hypertrophy bilaterally. C5-6: Central disc osteophyte complex formation. No compression upon neural elements. Bilateral neuroforamina stenosis on a degenerative basis. C6-7: Central disc osteophyte complex formation resulting in ventral deformity of the spinal cord. No cord signal abnormality. Facet joint hypertrophy bilaterally. Bilateral neuroforamina narrowing. Small perineural cysts, bilaterally. C7-T1: No disc herniation. No neuroforamina stenosis. Small perineural cysts, bilaterally. T1-2: No disc herniation. No neuroforamina stenosis. Perineural cysts, bilaterally. No prevertebral compartment hematoma, mass or fluid collection. Flow-void signal within the main vessels is normal. Codominant vertebral arteries. MR/MR cervical spine wo con IMPRESSION: Grade 1 retrolisthesis likely on a degenerative basis resulting in central spinal canal and bilateral neuroforamina stenosis without cord edema and or myelopathy. Central disc osteophyte complex formation without cord compression, cord edema and or myelopathy at C6-7. Fluid/secretions in the trachea. Concerning aspiration. Multilevel perineural cysts, bilaterally. Electronically signed by: Wellington Carlisle MD 08/26/2024 09:21 AM EDT
--- OUTSIDE RECORDS SUMMARY | 2024-08-25 15:10 | XMS_ITS | Patient Health Record ---
Author Organization [facility] Address [address], [place] [id number] Care Team Providers Care Winding Rack Operator Name Role Phone Aris Benoit Primary Care Provider [phone] Allergies Allergen (clinical drug ingredient) Drug/Non Drug Allergy documented on EMR Reaction Allergy Type Onset Date Status sulfamethoxazole / trimethoprim Bactrim hives Drug Allergy Active Reason For Referral No Information Medications Medication SIG (Take, Route, Frequency, Duration) Notes Start Date End Date Status acetaminophen 500 mg 2 tab(s) orally ileana ry 8 hours for 30 days Active Catapres 0.1 mg 1 tab(s) orally 2 ti mes a day for 30 day(s) 07/03/2021 Active omeprazole 20 mg 1 cap(s) orally once a day for 30 days Active sertraline 50 mg 1 tab(s) orally once a day for 30 day(s) Active zolpidem 10 mg 1 tab(s) orally hs p rn (not to exceed 20 pills/month) Active Centrum Silver Men's OTC Active docusate sodium 100 mg 1 cap(s) orally 2 times a day PRN Active Aspir 81 81 mg 1 tab(s) orally once a day for 90 day(s) Active Ketorolac Tromethamine 10 mg 1 tab(s) or ally 3 times a day - first dose 07/04 in AM with food for 4 day(s) 07/03/2021 Active lisinopril 10 mg 1 tab(s) orally once a day for 30 days Active atorvastatin 80 mg 1 tab(s) orally qhs for 90 day(s) Active AmLODIPine Besylate 5 mg 1 tab(s) orally once a day for 30 day(s) 07/03/2021 Active Metoprolol Tartrate 25 mg 0.5 tab orally 2 times a day Active QUEtiapine 25 mg 1 tab(s) orally qhs for nightmares / insomnia for 28 day(s) Active Immunizations Vaccine Route Administration Date Status Comme nts Influenza IM Intramuscular 04/24/2021 Administered Social History Tobacco Use: Social History Observation Description Date Details (start date - stop date) Current Smoker NA - NA Tobacco Use Assessment MU Question Answer Notes What is your current smoking status? current smo ker How often do you smoke? every day How many cigarettes a day do you smoke? 11-20 How soon after you wake up do you smoke your fir st cigarette? Within 5 minutes Are you interested in quitting? not ready to kesha t Patient counseled on the logan duval of tobacco use and advised to quit: 12/19/2020 Problems Problem Type SNOMED Code ICD Code Onset Dates Problem Status W/U Status Risk Notes Problem Manic bipolar I disorder (42858889) Bipolar disorder, current episode hypomanic (F31.0) Active confirmed Problem Posttraumatic stress disorder (95972029) Post-traumatic stress disorder, acute (F43.11) Active confirmed Problem Essential hypertension (12922289) Essential (primary) hypertension (I10) Active confirmed Problem Lipid-rich atherosclerosis of coronary artery (487751448252786) Coronary atherosclerosis due to lipid rich plaque (I25.83) Active confirmed Problem Pain of right shoulder region (finding) (9645603705) Pain in right shoulder (M25.511) Active confirmed Problem Solitary pulmonary nodule (242406663) Solitary pulmonary nodule (R91.1) Active confirmed Problem Body mass index 25-29 - overweight (887967119) Body mass index [BMI] 26.0-26.9, adult (Z68.26) Active confirmed Plan Of Treatment No Information Insurance Providers Payer Name Payer Address Payer Phone Subscriber Number Group Number Insured Name Patient Relationship to Insured Coverage Start Date Coverage End Date [facility] [address] [place] [phone] [id number] Isaias Miller Self - patient is the insured 1 1 [place] Medicaid C3 [address] [place], [place] [id number] Isaias Miller Self - patient is the insured 2 [place] Medicare Part [place] [employer] [address] [place] [address] [id number] Isaias Miller Self - patient is the insured 1 Medications Administered Medication Instructions Date of Administration Dosage Notes Ketorolac 07/03/2021 30 mg Lot [facility] [id number] Medical (General) History Medical History History ICD Code CVA - was treated at [facility] HTN Surgical History Surgery Date(Month/Year) Back surgery 1979 [facility] Hospitalization History Reason Date(Month/Year) APTU 16 days - Suicide attemot after a r ape 2018
== END 2024-08-25 12:49 | disposition home or self-care (01) ==
LOC: HO.MRI 12:48
PROVIDERS: Visit Provider Orthopaedic Surgery
DX: R20.0 Anesthesia of skin (principal)
CPT/HCPCS: 72141

== ENCOUNTER → 2024-08-25 12:58 | Outpatient (BNV) | payer MEDICARE, SELFPAY | PROVIDERS: Visit Provider Radiology Diagnostic Radiology | DX: M43.02 Spondylolysis, cervical region (principal); M50.323 Other cervical disc degeneration at C6-C7 level; R09.3 Abnormal sputum; G96.191 Perineural cyst | CPT/HCPCS: 72141 ==

== ENCOUNTER 2024-09-06 11:15 | Outpatient (AMB) | payer MEDICARE, SELFPAY ==
--- NOTE | 2024-09-06 11:19 | HO.SPINEOV ---
Vital Signs 09/06/24 11:26 Height 5 ft 11 in Weight 170 lb BMI 23.7 Intake Visit Reasons: neck and arm pain Intake Note: Mr. Miller is here today c/o Neck and Arm pain. Trouble Locator Test Desk Required: No Allergies pneumococcal vaccine [PNEUMOCOCCAL VACCINE] Allergy (Severe, Verified 09/06/24 11:26) ANAPHYLAXIS Penicillins [PCN] Allergy (Verified 09/06/24 11:26) Hives FLU VACCINE [id number] (3 YR +) Allergy (Intermediate, Uncoded 05/17/24 11:32) ANAPHYLAXIS Physical Exam Vital Signs: BMI result Body Mass Index 23.7 Assessment & Plan Assessment & Plan (1) Arm numbness left: Code(s): R20.0 - Anesthesia of skin Category: Medical Plan Dear Dr Nobles, Thank you for referring Mr Miller to our office today. He is a 63-year-old gentleman who presents today for evaluation of a left shoulder pain which is also giving him feelings of tingling and numbness running down his left arm. It started on 05/07/2024 when he slipped on some black ice and he fell backwards with his arm outstretched behind him and when he landed it curled up behind his back. Since that time he has had intense almost intolerable pain along the left top of the shoulder capsule as well as some neck pain and some tingling which goes down into his index finger, thumb. He ultimately underwent some physical therapy but it was too painful to continue. He was seen in your office and because of the tingling and numbness in the arm was felt that could be a cervical radiculopathy and he was sent today see us for an evaluation of possible degenerative changes in the spine causing the symptoms. Denies any myelopathic symptoms. He does report some hand weakness. Again there is numbness of the index finger, thumb and some part of the middle finger as well. PMH: History of coronary disease, he had stents a number of years ago, history of stroke, hypertension, high cholesterol, chronic pain, chronically on morphine and marijuana gummies, depression, GERD, right rotator cuff repair Social hx: He smokes about half pack a day, uses marijuana gummies every day but does not drink any alcohol or use any other illicit drugs Medications: Amlodipine, atorvastatin, lisinopril, metoprolol, morphine, omeprazole Allergies: Please see the [employer] list Physical exam: Awake alert oriented no acute distress, he is very guarded with his left shoulder, I was barely able to examine him because of the amount of pain he was in with any attempts at abduction and internal/external rotation. He did demonstrate good strength of his hands with the exception of his left index finger, he tells me that it has some kind of tendon injury and does not close. He was unable to demonstrate any deltoid strength because of the pain. Biceps and triceps strength when supported along his elbow seem to be full strength. Reflexes were normal, no Lane's sign, no clonus, gait is normal. Right upper extremity strength and lower extremities normal. Imaging review: Cervical MRI done at [place] shows some [id number]-[id number]-[id number] degenerative disc disease but no cord compression and no evidence of any meaningful neuroforaminal narrowing compressing nerves on the left side. Impression: 63-year-old male presents for evaluation of left deltoid pain, neck pain and tingling going down his arm and hand after he took a fall and fell with what sounds like his hand and arm folded behind his back. Since that time has had intense pain and numbness that has not gone away. Overall his cervical MRI does not show any significant pathology. It could be that the tingling and numbness is related to a brachial plexus injury so an EMG would be worthwhile here but I am not sure how he is going to tolerate it with the amount of localized pain over the deltoid. He was barely able to let me examine him. It does not sound like there is going to be a surgical option for him based on the imaging that I see currently. Its likely nerve injury. I am not sure if there is any plans for shoulder imaging but will defer that back to you. Thank you for allowing us to care for your patient. The total time spent with this visit with this patient was 45 minutes reviewing history, physical exam, cervical imaging review, and implementation of treatment plan or further diagnostic testing Patricio Albert MD,PhD [facility] Orders: Orders NE electromyogram (EMG) Today R20.0 - Anesthesia of skin Coding Level of Care Code New Pt Level 4 (14633) Diagnoses Arm numbness left R20.0
[2024-09-06 11:26] VITALS: BMI 23.7
== END 2024-09-06 12:07 | disposition home or self-care (01) ==
LOC: HO.HNS 11:16
PROVIDERS: Referring Provider Orthopaedic Surgery; Visit Provider Physician Assistant
DX: R20.0 Anesthesia of skin (principal)
CPT/HCPCS: 99204

== ENCOUNTER → 2024-09-06 11:15 | Outpatient (BNVA) | payer MEDICARE, SELFPAY | PROVIDERS: Referring Provider Orthopaedic Surgery; Visit Provider Physician Assistant | DX: R20.0 Anesthesia of skin (principal); M54.2 Cervicalgia; M79.603 Pain in arm, unspecified | CPT/HCPCS: 99202 ==

== ENCOUNTER → 2024-11-02 12:43 | Outpatient (BNV) | payer MEDICARE, SELFPAY | PROVIDERS: Visit Provider Radiology Diagnostic Radiology | DX: M75.122 Complete rotator cuff tear or rupture of left shoulder, not specified as traumatic (principal) | CPT/HCPCS: 73221 ==

== ENCOUNTER 2024-11-02 12:46 | Outpatient (REF) | payer MEDICARE, SELFPAY ==
--- NOTE | ~2024-11-02 | MR_ITS ---
CLINICAL HISTORY: M24.812 - Other specific joint derangements of left shoulder, not elsewh... MR left shoulder without gadolinium Comparison: None provided Findings: Normal alignment without acute fracture or marrow infiltration. No glenohumeral joint effusion. Minimal axillary recess synovitis cannot be excluded. Mild degenerative irregularity of the glenohumeral cartilage. Qaua-ls-wdwtsjdi AC osteoarthritis. No evidence of subacromial impingement. Small proximal humeral cysts with neighboring mild bone marrow edematous changes noted in the proximal humerus (most conspicuously at level of the greater trochanter). Near full width, partial-thickness, bursal sided tear of the supraspinatus tendon (anteriorly the tear extends into the supraspinatus musculotendinous junction). The musculotendinous junction portion of the tear communicates with the tsqg-um-vbsebfqxdp distended subacromial/subdeltoid bursa. This portion of the tear measures up to 3 mm in CC and 10 mm in AP dimensions (series 10 image 13), and extends as a delaminating intrasubstance tear into the neighboring supraspinatus musculotendinous junction (the delaminating portion of the tear measures up to 6 x 20 mm -CC by transverse dimensions- on coronal image 15; series 3). Low-grade, partial-thickness, partial width articular sided tear of the superior aspect of the subscapularis tendon. Moderate supraspinatus and subscapularis as well as mild infraspinatus tendinosis. Less than 50% fatty infiltration of the rotator cuff muscles. Mild fragmented appearance of the long head of biceps tendon in the bicipital groove due to tear. Mild long head of biceps endinosis. No evidence of labral tear. IMPRESSION: 1. Near full width, partial-thickness, bursal sided supraspinatus tear communicating with the subacromial/subdeltoid bursa, and continuous with a supraspinatus delaminating intrasubstance musculotendinous junction tear.. 2. Low-grade, partial-thickness, partial width articular sided tear of the superior aspect of the subscapularis tendon. 3. Moderate supraspinatus and subscapularis tendinosis. 4. Focal tear of the superior aspect of the groove portion of the long head of biceps tendon. This document has been electronically signed by: Maria Reeder MD on 11/03/2024 13:24:30
--- OUTSIDE RECORDS SUMMARY | 2024-11-02 14:22 | XMS_ITS | Patient Health Record ---
Author Organization [facility] Address [address], [place] [id number] Care Team Providers Care Oral Health Therapist Name Role Phone Aris Benoit Primary Care Provider Allergies Allergen (clinical drug ingredient) Drug/Non Drug [...] kesha t Patient counseled on the logan graffs of tobacco use and advised to quit: 12/19/2020 Section Notes: Used to smoke Marijuana NO Alcohol drug use 30 pack year smoking history Used to smoke Marijuana NO Alcohol drug use 30 pack year smoking history Used to smoke Marijuana NO Alcohol drug use 30 pack year smoking history Used to smoke Marijuana NO Alcohol drug use 30 pack year smoking history Used to smoke Marijuana NO Alcohol drug use 30 pack year smoking history Used to smoke Marijuana NO Alcohol drug use 30 pack year smoking history Used to smoke Marijuana NO Alcohol drug use 30 pack year smoking history Used to smoke Marijuana NO Alcohol drug use 30 pack year smoking history Used to smoke Marijuana NO Alcohol drug use 30 pack year smoking history Used to smoke Marijuana NO Alcohol drug use 30 pack year smoking history Used to smoke Marijuana NO Alcohol drug use 30 pack year smoking history Problems Problem Type SNOMED Code ICD Code Onset Dates Problem Status W/U Status Risk Notes Problem Manic bipolar I disorder (27401636) Bipolar disorder, current episode hypomanic (F31.0) Active confirmed Problem Posttraumatic stress disorder (99337070) Post-traumatic stress disorder, acute (F43.11) Active confirmed Problem Essential hypertension (42816770) Essential (primary) hypertension (I10) Active confirmed Problem Lipid-rich atherosclerosis of coronary artery (495201684947709) Coronary atherosclerosis due to lipid rich plaque (I25.83) Active confirmed Problem Pain of right shoulder region (finding) (7130220390) Pain in right shoulder (M25.511) Active confirmed Problem Solitary pulmonary nodule (977102274) Solitary pulmonary nodule (R91.1) Active confirmed Problem Body mass index [BMI] 26.0-26.9, adult (Z68.26) Active confirmed Plan Of Treatment No Information Insurance Providers Payer Name Payer Address Payer Phone Subscriber Number Group Number Insured Name Patient Relationship to Insured Coverage Start Date Coverage End Date [facility] [address] [place] [phone] [id number] Isaias Miller Self - patient is the insured 1 1 [place] Medicaid C3 [address] [place], [place] [id number] Isaias Miller Self - patient is the insured 2 [place] Medicare Part [place] [employer] [address] [facility] [place] [address] [id number] Isaias Miller Self - patient is the insured 1 Medications Administered Medication Instructions Date of Administration Dosage Notes Ketorolac 07/03/2021 30 mg Lot [id number] [facility] [id number] Medical (General) History Medical History History ICD Code CVA - was treated at [facility] HTN Surgical History Surgery Date(Month/Year) Back surgery 1979 [facility] Hospitalization History Reason Date(Month/Year) APTU 16 days - Suicide attemot after a r ape 2018
== END 2024-11-02 12:47 | disposition home or self-care (01) ==
LOC: HO.MRI 12:46
PROVIDERS: Visit Provider Orthopaedic Surgery
DX: M24.812 Other specific joint derangements of left shoulder, not elsewhere classified (principal)
CPT/HCPCS: 73221

== ENCOUNTER 2024-11-25 15:03 | Outpatient (AMB) | payer MEDICARE, SELFPAY ==
--- NOTE | 2024-11-25 15:05 | A.OFFVIS_ITS ---
Intake Visit Reasons: OV- LT shoulder MRI review Intake Note: Isaias is a 64 year old left hand dominant male who presents today for an MRI review of his left shoulder. Patient reports that he slipped and fell on black ice 05/07/24 IMPRESSION: 1. Near full width, partial-thickness, bursal sided supraspinatus tear communicating with the subacromial/subdeltoid bursa, and continuous with a supraspinatus delaminating intrasubstance musculotendinous junction tear.. 2. Low-grade, partial-thickness, partial width articular sided tear of the superior aspect of the subscapularis tendon. 3. Moderate supraspinatus and subscapularis tendinosis. 4. Focal tear of the superior aspect of the groove portion of the long head of biceps tendon. Allergies pneumococcal vaccine (PNEUMOCOCCAL VACCINE) Allergy (Severe, Verified 09/06/24 11:26) ANAPHYLAXIS Penicillins (PCN) Allergy (Verified 09/06/24 11:26) Hives FLU VACCINE [id number] (3 YR +) Allergy (Intermediate, Uncoded 05/17/24 11:32) ANAPHYLAXIS HPI HPI OV- LT shoulder MRI review: Details: Isaias is a 64-year-old gentleman who comes in today for review of his MRI. He 1st saw me after a fall this past May. At that time he complained of both shoulder and forearm pain with numbness and tingling. I did obtain an MRI of the cervical spine and his shoulder. His cervical spine was unimpressive with disc osteophyte complex over C6-7 but no obvious cord impingement or foraminal stenosis. He has continued to describe shoulder pain and weakness. I did perform a rotator cuff repair in his right shoulder 3 years ago for which he did very well. He feels that the pain is similar to what it was in his contralateral shoulder. [facility] Medical History Encounter to establish care History of stroke History of TIA (transient ischemic attack) Hypertension Kidney stones Surgical History History of kidney surgery History of rotator cuff surgery Previous back surgery Family History Mother Essential hypertension Father CAD (coronary artery disease) Brother Brain cancer Social History Housing: Apartment Alcohol intake: current Alcohol intake frequency: holidays/special occasions only Patient Tobacco Use Status: Current everyday Tobacco user Tobacco use type: Cigarette Cigarettes Per Day: 6 e-Cigarette/Vaping Use: Never Used Second Hand Smoke Exposure: Yes service: No Current occupational status: disabled Cognitive needs: No Hearing needs: No Vision needs: No Physical Exam Extrem Other: Left shoulder with 4/5 rtc weakness Full passive ROM No weakness of d/b/t/wf/we Neg Griselda's Results Reviewed Results Reviewed: I personally reviewed the MR images. 1. Near full width, partial-thickness, bursal sided supraspinatus tear communicating with the subacromial/subdeltoid bursa, and continuous with a supraspinatus delaminating intrasubstance musculotendinous junction tear.. 2. Low-grade, partial-thickness, partial width articular sided tear of the superior aspect of the subscapularis tendon. 3. Moderate supraspinatus and subscapularis tendinosis. 4. Focal tear of the superior aspect of the groove portion of the long head of biceps tendon. Assessment & Plan Assessment & Plan (1) Rotator cuff tear, left: Code(s): M75.102 - Unspecified rotator cuff tear or rupture of left shoulder, not specified as traumatic Category: Medical Plan: Left full thickness RTC tear. Successful surgery 3 years ago on contralateral shoulder. He understands r/b/a which were explained to him is detail. I discussed the risks benefits and alternatives including but not limited to the risk of pain, infection, stiffness, need for further surgery as well as potential medical complications such as blood clots, pulmonary embolism and card iac complications. I explaiend the post op expectations. He is a good candidate. There is remote hx of TIA/stroke. His cervical spine was evaluated by Neuro and there is no additional intervention. Coding Level of Care Code Est Pt Level 4 (05267) Diagnoses Rotator cuff tear, left M75.102
--- OUTSIDE RECORDS SUMMARY | 2024-11-25 15:49 | XMS_ITS | Patient Health Record ---
Author Organization [facility] Address [address] [place], [place] [id number] Care Team Providers Care Stranner Name Role Phone Aris Benoit Primary Care [...] Risk Notes Problem Manic bipolar I disorder (59004559) Bipolar disorder, current episode hypomanic (F31.0) Active confirmed Problem Posttraumatic stress disorder (03100332) Post-traumatic stress disorder, acute (F43.11) Active confirmed Problem Essential hypertension (24473961) Essential (primary) hypertension (I10) Active confirmed Problem Lipid-rich atherosclerosis of coronary artery (662518055377226) Coronary atherosclerosis due to lipid rich plaque (I25.83) Active confirmed Problem Pain of right shoulder region (finding) (0853878426) Pain in right shoulder (M25.511) Active confirmed Problem Solitary pulmona ry nodule (R91.1) Active confirmed Problem Body mass index 25-29 - overweight (627511017) Body mass index [BMI] 26.0-26.9, adult (Z68.26) Active confirmed Plan Of Treatment No Information Insurance Providers Payer Name Payer Address Payer Phone Subscriber Number Group Number Insured Name Patient Relationship to Insured Coverage Start Date Coverage End Date [facility] [address] [place] [phone] [id number] Isaias Miller Self - patient is the insured 1 1 [place] Medicaid C3 [address] [place], [place] [id number] [phone] [id number] Isaias Miller Self - patient is the insured 2 [place] Medicare Part A [employer] [address] [place] [address] [id number] Isaias Miller Self - patient is the insured 1 Medications Administered Medication Instructions Date of Administration Dosage Notes Ketorolac 07/03/2021 30 mg Lot [facility] [id number] Medical (General) History Medical History History ICD Code CVA - was treated at [facility] HTN Surgical History Surgery Date(Month/Year) Back surgery 1979 [facility] Hospitalization History Reason Date(Month/Year) APTU 16 days - Suicide attemot after a r ape 2018
== END 2024-11-25 15:16 | disposition home or self-care (01) ==
LOC: HO.HOS 15:04
PROVIDERS: Visit Provider Orthopaedic Surgery
DX: M75.102 Unspecified rotator cuff tear or rupture of left shoulder, not specified as traumatic (principal)
CPT/HCPCS: 99214

== ENCOUNTER → 2024-11-25 15:03 | Outpatient (BNVA) | payer MEDICARE, SELFPAY | PROVIDERS: Visit Provider Orthopaedic Surgery | DX: M75.102 Unspecified rotator cuff tear or rupture of left shoulder, not specified as traumatic (principal); Z86.73 Personal history of transient ischemic attack (TIA), and cerebral infarction without residual deficits | CPT/HCPCS: 99212 ==

== ENCOUNTER → 2024-12-21 08:54 | Outpatient (BNV) | payer MEDICARE, SELFPAY | PROVIDERS: Visit Provider Internal Medicine Cardiovascular Disease | DX: Z01.810 Encounter for preprocedural cardiovascular examination (principal) | CPT/HCPCS: 93010 ==

== ENCOUNTER 2024-12-22 07:57 | Day surgery (SDC) | payer MEDICARE, SELFPAY ==
--- OUTSIDE RECORDS SUMMARY | 2024-11-26 09:02 | XMS_ITS | Patient Health Record ---
Author Organization [facility] Address [address], [place] [id number] Care Team Providers Care Residential Property Consultant Name Role Phone Aris Benoit Primary Care Provider [phone] Allergies Allergen (clinical drug ingredient) Drug/Non Drug [...] Risk Notes Problem Manic bipolar I disorder (15049560) Bipolar disorder, current episode hypomanic (F31.0) Active confirmed Problem Posttraumatic stress disorder (24086405) Post-traumatic stress disorder, acute (F43.11) Active confirmed Problem Essential hypertension (06233255) Essential (primary) hypertension (I10) Active confirmed Problem Lipid-rich atherosclerosis of coronary artery (566585385648432) Coronary atherosclerosis due to lipid rich plaque (I25.83) Active confirmed Problem Pain of right shoulder region (finding) (3948001990) Pain in right shoulder (M25.511) Active confirmed Problem Solitary pulmonary nodule (231695257) Solitary pulmonary nodule (R91.1) Active confirmed Problem Body mass index [BMI] 26.0-26.9, adult (Z68.26) Active confirmed Plan Of Treatment No Information Insurance Providers Payer Name Payer Address Payer Phone Subscriber Number Group Number Insured Name Patient Relationship to Insured Coverage Start Date Coverage End Date [facility] [address] [place] [phone] [id number] Isaias Miller Self - patient is the insured 1 1 [place] C3 [address] [place], [place] [id number] Isaias Miller Self - patient is the insured 2 [place] Medicare Part [place] [employer] [address] [facility] [address] [id number] Isaias Miller Self - patient is the insured 1 Medications Administered Medication Instructions Date of Administration Dosage Notes Ketorolac 07/03/2021 30 mg Lot [id number] [facility] [id number] Medical (General) History Medical History History ICD Code CVA - was treated at [facility] HTN Surgical History Surgery Date(Month/Year) Back surgery 1979 [facility] Hospitalization History Reason Date(Month/Year) APTU 16 days - Suicide attemot after a r ape 2018
--- OUTSIDE RECORDS SUMMARY | 2024-11-26 09:02 | XMS_ITS | Encounter Summary ---
Author Organization [facility] Address [address] [facility] [address] [place] [address] Phone Care Team Providers Care Assistant Boiler Operator Name Role Phone Ary Ritchie MD Primary Care Provider [phone] Pcp, Unknown Primary Care Provider Unavailabl e Ary Ritchie MD Primary Care Provider + [phone] Yanet Pineda NP Primary Care Provider [phone] Pcp, Unknown Primary Care Provider Unavailabl e Encounter Details Date Type Department Care Team (Late st Contact Info) Description 05/13/2020 Procedure Pass [facility], Ct Scan - [address] [address] Social History Tobacco Use Types Packs/Day Years Used Date Smoking Tobacco: Every Day Smokeless Tobacco: Never Alcohol Use Standard Drinks/Week Comments Not Currently 0 (1 standard drink = 0.6 oz pur e alcohol) Sex and Gender Information Value Date Recorded Sex Assigned at Male 06/04/2018 8:18 PM EST Legal Sex Male 6:28 PM EDT Gender Identity Male 06/04/2018 8:18 PM EST Sexual Orientation Choose not to disclose 2019 6:11 PM EST documented as of this encounter Functional Status * Calculated C-SSRS Risk Score (Lifetime/Recent) Answer Date of Assessment Author No Risk Indicated 05/13/2020 7:16 PM EST Radha Blum RN * [place] Suicide Severity Rating Scale (Screener/Recent Self-Report) Question Answer Date of Assessment Author 1. Wish to be (Past 1 Month) No 05/13/2020 7:16 PM EST Radha Blum RN 2. Non-Specific Active Suici kervin Thoughts (Past 1 Month) No 05/13/2020 7:16 PM EST Obie Blum RN 3. Active Suicidal Ideation with any Methods (Not Plan) Without Intent to Act (Past 1 Month) No 05/13/2020 12:53 AM Isac Vergara, SILVIANO 6. Suicidal Behavior (Lifetime) No 7:16 PM Radha Harrell RN documented as of this encounter Plan of Treatment Not on file documented as of this encounter Visit Diagnoses Not on filedocumented in this encounter Care Teams Assistant Boiler Operator Relationship Specialty Start Date End Date Ary Ritchie MD [address] [place] [address] PCP - General Family Medicine 05/13/20 07/02/20 Pcp, Unknown PCP - General 07/03/20 09/23/20 Ary Ritchie MD [address] [place] [address] PCP - General Family Medicine 09/24/20 12/22/23 Yanet Pineda NP [address] [place] [address] [place] [address] PCP - General Nurse Practitioner 12/23/23 05/09/24 Pcp, Unknown PCP - General 05/10/24 documented as of this encounter Additional Source Comments The information contained in this document represents components of the legal health record. It is not the complete legal health record.[facility]
[2024-12-20 09:14] VITALS: BMI 23.7
[2024-12-20 12:52] VITALS: BMI 23.7
--- NOTE | 2024-12-20 13:17 | HO.ANESPROP2 ---
Documented by User: Fabiola Ruiz NP 12/21/24 10:48 HPI - Anesthesia Eval Consult details Narrative: 64yo M for Left Arthroscopic Rotator Cuff Repair PMFSH Active Problems Active Problems: All Active Problems Rotator cuff tear, left (Acute) Internal derangement of left shoulder (Acute) Cervical radiculopathy (Acute) Arm numbness left (Acute) Left shoulder pain (Acute) Strain of left biceps (Acute) Lumbar radiculopathy (Acute) Depression (Acute) Lumbar post-laminectomy syndrome (Acute) Insomnia (Acute) GERD (gastroesophageal reflux disease) (Acute) Hyperlipidemia (Acute) Low back pain (Acute) Left leg swelling (Acute) Right shoulder pain (Acute) S/P right rotator cuff repair (Acute) Essential hypertension (Acute) Rotator cuff tear, right (Acute) Dysfunction of right rotator cuff (Acute) History of stroke (Acute) Past Medical History Medical History CVA (cerebral vascular accident) Hyperlipidemia GERD (gastroesophageal reflux disease) Kidney stones Hypertension Family History Family History Mother Essential hypertension Father CAD (coronary artery disease) Brother Brain cancer Family history of problems with anesthesia: No Surgical History Surgical History History of rotator cuff surgery History of kidney surgery Previous back surgery History of Problems with Anesthesia: No Social History Social History Housing: Apartment Are you a primary manager primary care to a significant other at home: No Do you presently have visiting nurse or other home services: No Alcohol intake: current Alcohol intake frequency: holidays/special occasions only Patient Tobacco Use Status: Current everyday Tobacco user Tobacco use type: Cigarette Cigarette Packs Per Day: 0.5 Cigarettes Per Day: 10.0 Years Smoked: 48 e-Cigarette/Vaping Use: Never Used Second Hand Smoke Exposure: Yes Use of substances other than those prescribed or required for medical reasons: No Have you been hit, kicked, punched, or otherwise hurt by someone within the past year? If so, by whom?: No Spiritual Healthcare Practices: no Restorationist Healthcare Practices: no Cultural Healthcare Practices: no Are you DNR?: No Advance Directives: No Advance Directives Information Provided: Yes Advance Directives on File: No Poor oral hygiene: No service: No Current occupational status: disabled Cognitive needs: No Hearing needs: No Vision needs: No Meds Allergies Allergy/AdvReac Type Severity Reaction Status Date / Time pneumococcal vaccine Allergy Severe ANAPHYLAXIS Verified 09/06/24 11:26 (PNEUMOCOCCAL VACCINE) diphenhydramine (From Allergy Intermediate Hives Verified 12/22/24 08:22 Benadryl) Penicillins (PCN) Allergy Intermediate Hives Verified 12/20/24 09:05 Exam Height,Weight and Vital Signs: Height 5 ft 11 in Weight 77.111 kg Vital Signs Pulse Rate 90 12/21/24 08:51 Respiratory Rate 20 12/21/24 08:51 Blood Pressure 146/92 H 12/21/24 08:51 Pulse Oximetry 96 12/21/24 08:51 Oxygen Delivery Method Room Air 12/21/24 08:51 Pertinent Lab Results Pertinent Lab Results: Lab Results 12/21/24 Range/Units 09:23 WBC 7.9 (4.8-10.8) X10*3/uL RBC 5.14 (4.60-5.80) X10*6/uL Hgb 15.8 (14.0-18.0) g/dl Hct 46.1 (42.0-52.0) % MCV 89.7 (80.0-98.0) fL MCH 30.7 (27.0-33.0) pg MCHC 34.3 (31.0-36.0) g/dl RDW 12.6 (11.0-16.0) % Plt Count 252 (160-400) X10*3/uL MPV 8.8 L (9.4-12.4) fL Absolute Nucleated RBC 0.000 (0.0-0.012) X10*3/uL Nucleated RBC % (auto) 0.0 (0.0-0.2) /100WBC Sodium 139 (135-145) mmol/L Potassium 4.0 (3.3-5.1) mmol/L Chloride 105 (96-108) mmol/L Carbon Dioxide 28 (22-29) mmol/L Anion Gap 10 L (12-20) BUN 16 (9-16) mg/dL Creatinine 1.06 (0.5-1.4) mg/dL Estim Creat Clear Calc 73.0 Estimated GFR > 60 Random Glucose 67 (60-115) mg/dL Calcium 9.4 (8.4-10.2) mg/dL Narrative Narrative: EKG 12/2024 Vent. Rate : 77 BPM Atrial Rate : 77 BPM P-R Int : 160 ms QRS Dur : 114 ms QT Int : 396 ms P-R-T Axes : 72 85 81 degrees QTcB Int : 448 ms Normal sinus rhythm Normal ECG No previous ECGs available Assessment and Plan Assessment Anesthesia Assessment: Chart Reviewed Final Anesthetic Review Family History of Problems with Anesthesia: No History of Problems with Anesthesia: No Documented by User: Ann Mullins MD 12/22/24 08:56 PMFSH Past Medical History Medical History CVA (cerebral vascular accident) Hyperlipidemia GERD (gastroesophageal reflux disease) Kidney stones Hypertension Family History Family History Mother Essential hypertension Father CAD (coronary artery disease) Brother Brain cancer Surgical History Surgical History History of rotator cuff surgery History of kidney surgery Previous back surgery Social History Social History Housing: Apartment Are you a primary manager primary care to a significant other at home: No Do you presently have visiting nurse or other home services: No Alcohol intake: current Alcohol intake frequency: holidays/special occasions only Patient Tobacco Use Status: Current everyday Tobacco user Tobacco use type: Cigarette Cigarette Packs Per Day: 0.5 Cigarettes Per Day: 10.0 Years Smoked: 48 e-Cigarette/Vaping Use: Never Used Second Hand Smoke Exposure: Yes Use of substances other than those prescribed or required for medical reasons: No Have you been hit, kicked, punched, or otherwise hurt by someone within the past year? If so, by whom?: No Spiritual Healthcare Practices: no Restorationist Healthcare Practices: no Cultural Healthcare Practices: no Are you DNR?: No Advance Directives: No Advance Directives Information Provided: Yes Advance Directives on File: No Poor oral hygiene: No service: No Current occupational status: disabled Cognitive needs: No Hearing needs: No Vision needs: No Meds Allergies Allergy/AdvReac Type Severity Reaction Status Date / Time pneumococcal vaccine Allergy Severe ANAPHYLAXIS Verified 09/06/24 11:26 (PNEUMOCOCCAL VACCINE) diphenhydramine (From Allergy Intermediate Hives Verified 12/22/24 08:22 Benadryl) Penicillins (PCN) Allergy Intermediate Hives Verified 12/20/24 09:05 Exam Airway Mallampati Class: II TM Dist: >3cm Neck ROM: Full Heart: rrr Lungs: cta Assessment and Plan Assessment Anesthesia Assessment: Anesthesia Plan Discussed Final Anesthetic Review NPO: Yes ASA Class: III Final Preanesthetic Review: No Changes in Pt Med Stat, Meds/Allgs Chart Reviewed, Consent Obtained/Reviewed and Anes Risks/Benef Reviewed Patient Risk: Intermediate Procedure Risk: Intermediate Anesthetic Plan Anesthetic Plan: GA, Regional Block and Agree w/ Assess. and Plan Disposition: Standard PACU
[2024-12-21 08:51] VITALS: BP 146/92; PULSE 90; RESP 20; O2SAT 96
--- NOTE | 2024-12-21 08:54 | ECG_ITS ---
Test Reason : PREOP Blood Pressure : */* mmHG Vent. Rate : 77 BPM Atrial Rate : 77 BPM P-R Int : 160 ms QRS Dur : 114 ms QT Int : 396 ms P-R-T Axes : 72 85 81 degrees QTcB Int : 448 ms Normal sinus rhythm Normal ECG No previous ECGs available Referred By: Fabiola Ruiz Electronically Signed By: Ja Lyles
[2024-12-21 09:38] LABS: Hematocrit 46.1 % (42.0-52.0); Hemoglobin 15.8 g/dl (14.0-18.0); Mean Corpuscular HGB Conc 34.3 g/dl (31.0-36.0); Mean Corpuscular Hemoglobin 30.7 pg (27.0-33.0); Mean Corpuscular Volume 89.7 fL (80.0-98.0); NRBC Abs Auto 0.000 X10*3/uL (0.0-0.012); NRBC Pct Auto 0.0 /100WBC (0.0-0.2); Platelet Count 252 X10*3/uL (160-400); Red Blood Count 5.14 X10*6/uL (4.60-5.80); White Blood Count 7.9 X10*3/uL (4.8-10.8)
[2024-12-21 10:24] LABS: Anion Gap 10 (12-20); Blood Urea Nitrogen 16 mg/dL (9-16); Calcium 9.4 mg/dL (8.4-10.2); Carbon Dioxide 28 mmol/L (22-29); Chloride 105 mmol/L (96-108); Creatinine Clr Calc Pharmacy 73.0; Estimated Glomerular Filt Rate > 60; Potassium 4.0 mmol/L (3.3-5.1); Sodium 139 mmol/L (135-145)
[2024-12-22] VITALS (10 sets, daily range): BP systolic 124–142; BP diastolic 76–97; PULSE 61–89; RESP 10–18; TEMP 36.1–36.2; O2SAT 95–98; BMI 21.1
[2024-12-22] MEDS: Lactated Ringers 1,000 ML 100 ML IVCONT (08:51)
--- NOTE | 2024-12-22 10:15 | MHC.SHP ---
Pre-Procedural Eval Section A - 24 Hr Update-Section A only Date of Service: 12/22/24 The patient is an INPATIENT: No Changes since office visit: No Cold of Flu in the past 2 weeks, No New Medical Problems, No Changes in Medication and No Patient answered all questions The patient has been examined within 24 hours of the surgical procedure. The History & Physical has been completed within 30 days and I have reviewed it.: Yes Section B - Complete if H&P > 30 days Chief Complaint: Complete rotator cuff tear or rupture of left shou Allergies: Allergies Allergy/AdvReac Type Severity Reaction Status Date / Time pneumococcal vaccine Allergy Severe ANAPHYLAXIS Verified 09/06/24 11:26 (PNEUMOCOCCAL VACCINE) diphenhydramine (From Allergy Intermediate Hives Verified 12/22/24 08:22 Benadryl) Penicillins (PCN) Allergy Intermediate Hives Verified 12/20/24 09:05 Plan I have reviewed the history and physical and performed a pertinent physical examination on my patient. No changes have occurred unless specified. Time Spent With Patient Time: Total time managing care of this patient today ____ minutes.
--- NOTE | 2024-12-22 12:38 | P.BOP_ITS ---
Brief Operative Note Date of Service: 12/22/24 Pre-op diagnosis: Left RTC tear Post-op diagnosis: same Procedure: Left RTC repair Implants: Gill adn Nephew 4.75 double laoded healcoil x 2 and Knotless helacoil 5.0 x 2; large Regeneten bioinductive implant Surgeon: Rich Nobles MD Anesthesia: GETA and regional Was an Rotary Rock Drilling Machine Operator used for this Procedure?: Yes Rotary Rock Drilling Machine Operator: Susy Newberry Estimated blood loss (mL): 20 IV fluids (mL): 1,000 Pathology: none sent Condition: stable Disposition: PACU
--- NOTE | 2024-12-27 09:43 | P.OP_ITS ---
Operative Note Operative Note Date of Service: 12/22/24 Narrative: Date of Service: 12/22/24 Pre-op diagnosis: Left RTC tear Post-op diagnosis: same Procedure: Left RTC repair Implants: Gill adn Nephew 4.75 double laoded healcoil x 2 and Knotless helacoil 5.0 x 2; large Regeneten bioinductive implant Surgeon: Rich Nobles MD Anesthesia: GETA and regional Was an Hvac Specialist used for this Procedure?: Yes Hvac Specialist: Susy Newberry Estimated blood loss (mL): 20 IV fluids (mL): 1,000 Pathology: none sent Condition: stable Disposition: PACU Procedure in detail: Patient was brought to the operating room and placed the the beach chair position. All bony prominences were well padded and the limb was prepped and draped in standard sterile fashion. A time out was called to identify proper site, proper procedure and proper surgeon. IV antibiotics per weight were administered. I began by making a posterolateral stab incision with a 15 blade. A blunt trochar was placed into the glenohumeral joint and I insufflated the joint with saline and a 30 degree arthroscope was placed. I established an outside- in anterior portal just distal to the biceps tendon. I then began my inspection of the glenohumeral joint. There was mild fraying of the superior labrum at the biceps anchor. Her glenoid and humeral articular surfaces were clean. There was no bicipital tearing. There was a low-grade partial tear of the superior portion of the subscapularis insertion on the humeral head. I used a shaver to debride the fraying of the labrum and partial-thickness tearing of the subscapularis. This was not sufficient enough to warrant repair. The undersurface of the supraspinatus was notable for near full-thickness tearing of the anterior portion. I then removed the trochar and entered the subacromial space. A direct lateral portal was then established and I performed a bursectomy. The cuff was then examined. There was a near full thickness tear of the supraspinatus which corresponded with the undersurface tear. There was some intrasubstance tearing which extended irregularly into the body of the supraspinatus. The tissue was fair quality. The tear was mobile. I placed two medial row double loaded anchors via a superior portal after using a tap just adjacent to the articular cartilage. A 2nd lateral portal was established under direct visualization and I and then brought the suture limbs ( 8) through the medial cuff. I then debrided the bare area down to bleeding bone and, using a cross bridge configuration, brought 4 limbs to each of two lateral 5.0 anchors. This re- approximated the cuff anatomy anatomically. Given the irregular nature of the tear and the tissue quality I elected to place a large Regeneten bio inductive collagen patch. This was inserted via the anterolateral portal and soft tissue trevon were used via the posterolateral portal and then 2 lateral bone trevon were used via this portal to cover the repair and the supraspinatus with the patch. Once I was satisfied with the repair final images were captured and I removed all instrumentation. Portals were closed with nylon. Patient was placed in an abduction sling, extubated and brought to the recovery room in stable condition. There were no known complications.
== END 2024-12-22 14:43 | disposition home or self-care (01) ==
LOC: HO.SSS 07:58
PROVIDERS: Nurse Practitioner; Visit Provider Orthopaedic Surgery
PROC: (CPT 29827; principal; 2024-12-22 10:30)
DX: M75.122 Complete rotator cuff tear or rupture of left shoulder, not specified as traumatic (principal); Z91.81 History of falling; M25.512 Pain in left shoulder; R20.0 Anesthesia of skin; R20.2 Paresthesia of skin; I10 Essential (primary) hypertension; Z86.73 Personal history of transient ischemic attack (TIA), and cerebral infarction without residual deficits; Z87.442 Personal history of urinary calculi; Z88.0 Allergy status to penicillin; Z88.7 Allergy status to serum and vaccine; Z98.890 Other specified postprocedural states; F17.210 Nicotine dependence, cigarettes, uncomplicated
CPT/HCPCS: 29827; 36415; 80048; 85027; 93005; C1713; C1763; J0131; J0165; J0665; J0736; J1100; J2003; J2250; J2371; J2704; J3010

== ENCOUNTER → 2024-12-22 07:57 | Outpatient (BNV) | payer MEDICARE, SELFPAY | PROVIDERS: Visit Provider Orthopaedic Surgery | DX: S46.012A Strain of muscle(s) and tendon(s) of the rotator cuff of left shoulder, initial encounter (principal) | CPT/HCPCS: 29827 ==

== ENCOUNTER 2024-12-30 15:02 | Outpatient (AMB) | payer MEDICARE, SELFPAY ==
--- OUTSIDE RECORDS SUMMARY | 2024-12-30 15:05 | XMS_ITS | Encounter Summary ---
Author Organization [facility] Address [address] [place] [address] [place] [address] Phone Care Team Providers Care Medical Claims Specialist Name Role Phone Pcp, Unknown Primary Care Provider Ary Alford MD Primary Care Provider [phone] Pcp, Unknown Primary Care Provider Ary Alford MD Primary Care Provider [phone] Yanet Pineda NP Primary Care Provider [phone] Pcp, Unknown Primary Care Provider Unavailabl e Encounter Details Date Type Department Care Team (Late st Contact Info) Description 03/24/2020 Procedure Pass [facility], Ct Scan - [address] [address] Social History Tobacco Use Types Packs/Day Years [...] PM EST documented as of this encounter Plan of Treatment Not on file documented as of this encounter Visit Diagnoses Not on filedocumented in this encounter Care Teams Medical Claims Specialist Relationship Specialty Start Date End Date Pcp, Unknown PCP - General 03/17/20 05/12/20 Ary Ritchie MD [address] [place] [address] PCP - General Family Medicine 05/13/20 07/02/20 Pcp, Unknown PCP - General 07/03/20 09/23/20 Ary Ritchie MD [address] [place] [address] PCP - General Family Medicine 09/24/20 12/22/23 Yanet Pineda NP [address] [address] PCP - General Nurse Practitioner 12/23/23 05/09/24 Pcp, Unknown PCP - General 05/10/24 documented as of this encounter Additional Source Comments The information contained in this document represents components of the legal health record. It is not the complete legal health record.[facility]
--- OUTSIDE RECORDS SUMMARY | 2024-12-30 15:05 | XMS_ITS | Patient Health Record ---
Author Organization [facility] Address [address] [place], [place] [id number] Care Team Providers Care Help Desk Engineer Name Role Phone Aris Benoit Primary Care [...] Risk Notes Problem Manic bipolar I disorder (88344621) Bipolar disorder, current episode hypomanic (F31.0) Active confirmed Problem Posttraumatic stress disorder (21743573) Post-traumatic stress disorder, acute (F43.11) Active confirmed Problem Essential (primary) hypertension (I10) Active confirmed Problem Lipid-rich atherosclerosis of coronary artery (072115355153421) Coronary atherosclerosis due to lipid rich plaque (I25.83) Active confirmed Problem Pain of right shoulder region (finding) (0917483726) Pain in right shoulder (M25.511) Active confirmed Problem Solitary pulmonary nodule (336122015) Solitary pulmonary nodule (R91.1) Active confirmed Problem Body mass index 25-29 - overweight (120240270) Body mass index [BMI] 26.0-26.9, adult (Z68.26) Active confirmed Plan Of Treatment No Information Insurance Providers Payer Name Payer Address Payer Phone Subscriber Number Group Number Insured Name Patient Relationship to Insured Coverage Start Date Coverage End Date [facility] [address] [place] [phone] [id number] Isaias Miller Self - patient is the insured 1 1 [place] Medicaid C3 [address] [place], [place] [id number] [phone] [id number] Isaias Miller Self - patient is the insured 2 [place] Medicare Part A [employer] [address] [place] [address] [id number] Isaias Miller Self - patient is the insured 1 Medications Administered Medication Instructions Date of Administration Dosage Notes Ketorolac 07/03/2021 30 mg Lot [facility] [id number] Medical (General) History Medical History History ICD Code CVA - was treated at [facility] HTN Surgical History Surgery Date(Month/Year) Back surgery 1979 [facility] - [facility] Hospitalization History Reason Date(Month/Year) APTU 16 days - Suicide attemot after a r ape 2018
--- NOTE | 2024-12-30 15:06 | MHC.OFFVIS ---
Intake Visit Reasons: PO LT shoulder RTC 12/22/24 NE Intake Note: Isaias is a 64 year old male who presents today for a post op appointment for his LT shoulder RTC 12/22/24 NE. Patient reports - . Allergies pneumococcal vaccine (PNEUMOCOCCAL VACCINE) Allergy (Severe, Verified 09/06/24 11:26) ANAPHYLAXIS diphenhydramine (From Benadryl) Allergy (Intermediate, Verified 12/22/24 08:22) Hives Penicillins (PCN) Allergy (Intermediate, Verified 12/20/24 09:05) Hives HPI HPI PO LT shoulder RTC 12/22/24 NE: Details: Mr. Miller is a 64-year-old male who presents to the office today status post left shoulder rotator cuff repair with large collagen patch performed on 12/22/[address] Nobles. He presents to the office today in the abduction sling. However, the patient reports that he took a shower yesterday and has been having difficulty with positioning the sling and needs adjustment. Additionally, patient is requesting a refill of narcotic pain medication. He does not have a physical therapy appointment set up at this time. Patient does not have any additional complaints. [facility] Medical History CVA (cerebral vascular accident) Hyperlipidemia GERD (gastroesophageal reflux disease) Kidney stones Hypertension Surgical History History of rotator cuff surgery History of kidney surgery Previous back surgery Family History Mother Essential hypertension Father CAD (coronary artery disease) Brother Brain cancer Social History Housing: Apartment Are you a primary residential child care counselor to a significant other at home: No Do you presently have visiting nurse or other home services: No Alcohol intake: current Alcohol intake frequency: holidays/special occasions only Comment: COUNTS CORRECT Patient Tobacco Use Status: Current everyday Tobacco user Tobacco use type: Cigarette Cigarette Packs Per Day: 0.5 Cigarettes Per Day: 10.0 Years Smoked: 48 e-Cigarette/Vaping Use: Never Used Second Hand Smoke Exposure: Yes service: No Current occupational status: disabled Cognitive needs: No Hearing needs: No Vision needs: No Review of Systems Const All systems reviewed & are unremarkable except as noted in HPI and below Physical Exam Const General: cooperative, healthy appearing and no acute distress Resp Effort & Inspection: normal respiratory effort and able to speak in complete sentences Extrem Other: Left shoulder incision sites are clean dry and intact. No surrounding erythema or drainage. No signs of infection. Forward flexion abduction to 45 degrees. External rotation to neutral. NVI. Psych Appearance: grossly normal Mental Status: mental status grossly normal Attitude: cooperative Assessment & Plan Assessment & Plan (1) S/P right rotator cuff repair: Code(s): Z98.890 - Other specified postprocedural states Category: Surgical Plan Mr. Miller is a 64-year-old male who presents to the office today status post left shoulder rotator cuff repair with large collagen patch performed on 12/22/[address] Nobles. He presents to the office today in the abduction sling. However, the patient reports that he took a shower yesterday and has been having difficulty with positioning the sling and needs adjustment. Additionally, patient is requesting a refill of narcotic pain medication. He does not have a physical therapy appointment set up at this time. Patient does not have any additional complaints. While the office today, sutures are removed and Steri-Strips were applied. The patient was also provided with physical therapy contact information instructed to reach out to schedule an appointment as soon as possible. He will remain in the abduction sling for a total of 6 weeks postoperatively. He is unable to drive during this time. Patient is requesting a refill of narcotic pain medication. Oxycodone-acetaminophen 5-325 mg to be taken p.o. q.4-6 hours PRN pain was sent to the pharmacy today He will follow up with Dr. Nobles in 4 weeks, sooner if needed. Medications: Refilled oxycodone-acetaminophen 5-325 mg (Percocet) Partial Fill upon patient request. Pharmacy to please bring to PACU on date of surgery 12/22/24 1 tab PO Q4-6H PRN 42 tabs 0RF pain (scale score 4-6) 7 days Coding Level of Care Code Global (27793) Diagnoses S/P right rotator cuff repair Z98.890
== END 2024-12-30 15:37 | disposition home or self-care (01) ==
LOC: HO.HOS 15:02
PROVIDERS: Visit Provider Physician Assistant
DX: Z98.890 Other specified postprocedural states (principal)
CPT/HCPCS: 99024

== ENCOUNTER → 2024-12-30 15:02 | Outpatient (BNVA) | payer MEDICARE, SELFPAY | PROVIDERS: Visit Provider Physician Assistant | DX: Z98.890 Other specified postprocedural states (principal) | CPT/HCPCS: 99212 ==

== ENCOUNTER 2025-01-27 13:10 | Outpatient (AMB) | payer MEDICARE, SELFPAY ==
--- OUTSIDE RECORDS SUMMARY | 2025-01-24 21:21 | XMS_ITS | Encounter Summary ---
Author Organization [facility] Address [address] [facility] [address] [place] [phone] Phone Care Team Providers Care District Manager Postal Service Name Role Phone Pcp, Unknown Primary Care Provider Unavailabl e Reason for Visit * Reason Comments Insect Bite Dizziness Encounter Details Date Type Department Care Team ([facility] st Contact Info) Description 01/24/2025 9:21 PM EDT - 01/25/2025 12:02 AM EDT Emergency [facility] [address] [place] [address] Chadwick La, DO [address] [place] [address] [email or web address] Discharge Disposition: Home or Self Care Social History Tobacco Use Types Packs/Day Years Used Date Smoking Tobacco: Every Day Cigarettes Smokeless Tobacco: Never Alcohol Use Standard Drinks/Week Comments Yes 0 (1 standard drink = 0.6 oz pur e alcohol) rare Education Answer Date Recorded Are you interested in more education? Not on francis e 09/06/2022 Are you concerned about learning? Not on file 09/06/2022 No 09/06/2022 No 09/06/2022 Food Answer Date Recorded Within the past 6 months we worried whether our food would run out before we got money to buy more. Never True 01/24/2025 Within the past 6 months the food we bought just didn't last and we didn't have enough money to get more. Never True Residential Stability Answer Date Recor ded What is your housing situation today? I have shraddha sing 01/24/2025 How many times have you move d in the past 12 months? Zero (I did not move) 01/24/2025 Paying for Meds Answer Date Recorded Do you have trouble paying for medicines? No 01/24/2025 Paying Utility Bills Answer Date Record ed Do you have trouble paying your heating or elect ricity bill? No 01/24/2025 Transportation Answer Date Recorded Has the lack of transportati on kept you from medical appointments or from getting medications? No 01/24/2025 Digital Access Answer Date Recorded No 01/24/2025 Yes 01/24/2025 Do you have reliable internet access at home? Ye s 01/24/2025 Do you have a device (e.g., phone, tablet, computer) with a working camera? Yes 01/24/2025 Intimate Partner Violence Answer Date R ecorded Are you denied basic needs s uch as food, clothing, or medical care? No 01/24/2025 In the past 12 months have y ou been in a relationship with a person who hurts, threatens, or tries to control you? No 01/24/2025 Are you denied basic needs s uch as food, clothing, or medical care? No 01/24/2025 In the past 12 months have y ou been in a relationship with a person who hurts, threatens, or tries to control you? No 01/24/2025 Sex and Gender Information Value Date Recorded Sex Assigned at Male 06/04/2018 8:18 PM EST Legal Sex Male 6:28 PM EDT Gender Identity Male 06/04/2018 8:18 PM EST Sexual Orientation Choose not to disclose 2019 6:11 PM EST documented as of this encounter Last Filed Vital Signs Vital Sign Reading Time Taken Comments Blood Pressure 159/93 01/24/2025 11:16 PM EDT Pulse 92 01/24/2025 11:16 PM EDT Temperature 36.3 C (97.4 F) 01/24/2025 11:16 PM EDT Respiratory Rate 18 01/24/2025 11:16 PM EDT Oxygen Saturation 98% 01/24/2025 11:16 PM EDT Inhaled Oxygen Concentration - - Weight - - Height - - Body Mass Index - - documented in this encounter Functional Status * Calculated C-SSRS Risk Score (Lifetime/Recent) Answer Date of Assessment Author No Risk Indicated 01/24/2025 4:20 PM EDT Amara Cavanaugh RN * [place] Suicide Severity Rating Scale (Screener/Recent Self-Report) Question Answer Date of Assessment Author 1. Wish to be (Past 1 Month) No 025 4:20 PM EDT Amara Cavanaugh RN 2. Non-Specific Active Suici kervin Thoughts (Past 1 Month) No 01/24/2025 4:20 PM EDT Víctor Cavanaugh RN 6. Suicidal Behavior (Lifetime) No 5 4:20 PM EDT Amara Cavanaugh RN documented as of this encounter Discharge Instructions * Discharge Instructions* Chadwick La DO - 01/24/2025 9:55 PM EDT Take the antibiotics as prescribed for the full 7 days of treatment. Continue supportive care including warm compresses. Take your pain medicine as previously prescribed. You should see clinical improvement over the next 2 to 3 days if not improving follow-up with your primary care team. You can expect sometimes some mild worsening over the next 24 to 48 hours as the antibiotics begin to work. However for any rapid expansion, high fevers, inability keep hydrated or any further concerning symptoms I encouraged her to return to the ED immediately. * Attachments The following attachments cannot be sent through Care Everywhere. * Cellulitis (Norwegian) documented in this encounter Medications at Time of Discharge aspirin 81 MG EC tablet Take 81 mg by mouth daily. atorvastatin (LIPITOR) 10 MG tablet Take by mouth daily. doxycycline hyclate (DORYX) 100 mg tablet (To-Go) Take 100 mg (1 tablet) by mouth twice daily for 7 days 01/24/2025 5 hydrocortisone (ANUSOL-HC) 2.5 % rectal cream Place rectally 2 (two) times a day. 30 g 03/17/2020 hydrOXYzine (VISTARIL) 25 MG capsule Take 25 mg by mouth 3 (three) times a day as needed for itching or anxiety. ibuprofen (ADVIL,MOTRIN) 600 MG tablet Take 1 tablet (600 mg total) by mouth every 6 (six) hours as needed. 09/22/2020 lisinopril (PRINIVIL,ZESTRI L) 10 MG tablet Take 1 tablet (10 mg total) by mouth daily. 30 tablet 05/13/2020 melatonin 5 mg Tab Take 1 tablet (5 mg total) by mouth nightly at bedtime. 09/24/2020 meloxicam (MOBIC) 15 MG tablet 03/31/2021 METOPROLOL SUCCINATE ORAL Take by mouth. morphine (MSIR) 15 MG tablet Take 1 tablet (15 mg total) by mouth every 6 (six) hours as needed for pain (specific location in comments). Partial fill ok 8 tablet 05/10/2024 nicotine (NICODERM CQ) 14 mg/[address] 1 patch onto the skin daily. 09/23/2020 nicotine polacrilex (NICORETTE) [address] 1 each (2 mg total) inside cheek every 2 (two) hours as needed for smoking cessation. 09/22/2020 OMEPRAZOLE, BULK, MISC by Miscellaneous route. oxyCODONE 5 MG immediate release tablet Take 1 tablet (5 mg total) by mouth every 6 (six) hours as needed for pain (specific location in comments). Partial fill ok 10 tablet 12/17/2024 quetiapine fumarate (QUETIAPINE ORAL) Take by mouth. sertraline HCl (SERTRALINE ORAL) Take by mouth. traMADoL (ULTRAM) 50 mg tablet 03/31/2021 zolpidem tartrate (ZOLPIDEM ORAL) Take by mouth. documented as of this encounter Procedure Notes * Chadwick La DO - 01/24/2025 9:29 PM EDTAssociated Order(s): Bedside Ultrasound Procedure Bedside Ultrasound Date/Time: 01/24/2025 9:29 PM Performed by: Chadwick La DO Authorized by: Chadwick La DO Exam Type: Soft Tissue Soft Tissue Exam Findings & Impression: Indications: patient with erythema and swelling Body Area: Upper extremity Upper Extremity Location Details: Left hand Edema: the soft tissue was visualized and edema was present Fluid Collection: the soft tissue was visualized and a fluid collection was present (anechoic or mobile debris) Overall Impressions: edema and fluid collection Images: Images Saved: Yes Accession Number: [id number] documented in this encounter ED Notes * Dunia Rosado RN - 01/24/2025 11:51 PM EDT ED Discharge Nursing Note Reviewed D/C instructions with Pt. Pt verbalized understanding. Pt ambulated out of department withsteady gait. * Christiano Franco RN - 01/24/2025 7:01 PM EDT ED Nursing Progress Note Pt ambulatory to restroom with a brisk, steady gait. * Christiano Franco RN - 01/24/2025 6:56 PM EDT ED Nursing Progress Note Pt now speaking on phone to . No jerking/twitching motions noted, pt speaking in full sentences. * Christiano Franco RN - 01/24/2025 6:38 PM EDT ED Nursing Progress Note Pt making indicates that he is feeling worse. Pain 10/10, pt making jerking, twitching motions. Pt reports he feels like he is going to have a seizure. Pt acutely responsive the entire time this RN is with him. 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 Last seizure 20 years ago,not taking any seizure medications. quality assurance advisor and Binta CHUNG notified. * Amara Cavanaugh RN - 01/24/2025 4:18 PM EDT Patient comes in for dizziness, and fever and chills. Patient states that he was at a wedding last night and he believes he was bit by a recluse spider. Patient states the noticed some fever and chills last night and today he was walking to the hospital to be seen when he got dizzy and called 911. Patient has large bite to his L hand. * Chadwick La, DO - 01/24/2025 4:13 PM EDT Chief Complaint Chief Complaint Patient presents with Insect Bite Dizziness History of Present Illness The patient, Isaias Miller,is a 64 y.o. male who presents for evaluation of Insect Bite and Dizziness The patient is a 64 year old male presenting for evaluation of a wound to his left hand. Patient states it began yesterday. He was at a wedding. He is in a sling due to recent orthopedic procedure onhis rotator cuff. States that he bumped into a tree and noticed spiders on his left forearm. Believes he likely bumped into the nest. Patient is concerned that he got bitten by one of the spiders as today he woke with a red cheesh-na to his left hand. Located to the dorsum of the left hand at around the area of the fifth metatarsal. He acknowledges significant swelling and pain. Has not taken anything for his pain as of yet. Patient is concerned primarily that it is a brown recluse bite. Denies any visualized ticks. Does get subjective fever and chills. Unless otherwise specified, I have reviewed and agree with the triage and nursing notes. ROS A ten point review of systems was negative except what was noted in the HPI. Review of Systems Past Medical History Past Medical History: Diagnosis Date Cerebrovascular accident (CVA) 2019 no residual Chronic pain Coronary artery disease [place] (myocardial infarction) Renal insufficiency 2019 kidney stones Smoker Past Surgical History Past Surgical History: Procedure Laterality Date BACK SURGERY laminectomy Home Medications Prior to Admission medications Medication Sig aspirin 81 MG EC tablet 81 mg, Oral, Daily atorvastatin (LIPITOR) 10 MG tablet Oral, Daily doxycycline hyclate (DORYX) 100 mg tablet (To-Go) Take 100 mg (1 tablet) by mouth twice daily for 7days hydrocortisone (ANUSOL-HC) 2.5 % rectal cream Rectal, 2 times daily Patient not taking: Reported on 01/16/2021 hydrOXYzine (VISTARIL) 25 MG capsule 25 mg, Oral, 3 times daily PRN ibuprofen (ADVIL,MOTRIN) 600 MG tablet 600 mg, Oral, Every 6 hours PRN lisinopril (PRINIVIL,ZESTRIL) 10 MG tablet 10 mg, Oral, Daily melatonin 5 mg Tab 5 mg, Oral, Nightly Patient not taking: Reported on 01/16/2021 meloxicam (MOBIC) 15 MG tablet No dose, route, or frequency recorded. Patient not taking: Reported on 12/23/2023 METOPROLOL SUCCINATE ORAL Oral morphine (MSIR) 15 MG tablet 15 mg, Oral, Every 6 hours PRN, Partial fill ok nicotine (NICODERM CQ) 14 mg/24 hr 1 patch, Transdermal, Daily Patient not taking: Reported on 12/23/2023 nicotine polacrilex (NICORETTE) 2 mg gum 2 mg, Buccal, Every 2 hour PRN Patient not taking: Reported on 12/23/2023 OMEPRAZOLE, BULK, MISC Miscellaneous oxyCODONE 5 MG immediate release tablet 5 mg, Oral, Every 6 hours PRN, Partial fill ok quetiapine fumarate (QUETIAPINE ORAL) Oral sertraline HCl (SERTRALINE ORAL) Oral traMADoL (ULTRAM) 50 mg tablet No dose, route, or frequency recorded. Patient not taking: Reported on 12/23/2023 zolpidem tartrate (ZOLPIDEM ORAL) Take by mouth. Patient not taking: Reported on 12/23/2023 Allergies Allergies Allergen Reactions Cephalexin Hives Darvocet A500 [Propoxyphene N-Acetaminophen] Penicillins Pneumococcal 23-Tatiana Ps Vaccine Hives Sulfamethoxazole Benadryl [Diphenhydramine Hcl] Rash Sulfamethoxazole-Trimethoprim Hives and Rash Social and Family History Social History Tobacco Use Smoking status: Every Day Current packs/day: 1.00 Types: Cigarettes Smokeless tobacco: Never Substance Use Topics Alcohol use: Yes Comment: rare Social History Substance and Sexual Activity Drug Use No No family history on file. Physical Exam Vital Signs: ED Triage Vitals Encounter Vitals Group BP 01/24/25 1619 (!) 138/98 Systolic BP Percentile -- Diastolic BP Percentile -- Heart Rate 01/24/25 1619 98 Respiratory Rate 01/24/25 1619 18 Temperature 01/24/25 1619 36.6 ??C (97.9 ??F) Temp Source 01/24/25 1827 Tympanic SpO2 01/24/25 1619 98 % Weight -- Height -- Head Circumference -- Peak Flow -- Pain Score -- Pain Loc -- Pain Education -- Exclude from Growth Chart -- Physical Exam General: Well Nourished, Well Developed HENT: Normocephalic, Atraumatic Eyes: Pupils equal, EOM Intact Cardiovascular: Normal Rate, Normal Rhythm, Good Distal Perfusion Pulmonary: Normal Effort, symmetric chest rise MSK: Normal ROM of the right hand, distal perfusion to all 5 digits is well-maintained. Skin: on the dorsum of the left handAt the area of the fifth metatarsal base there is a 2 cm circumferential area of erythema with a punctate area at the center, no drainage no visualized insect. Tender to the touch without fluctuance. Neurological: Alert, Orientated x 3 Psych: Normal Mood and Affect Laboratory Testing Results for orders placed or performed during the hospital encounter of 01/24/25 Lactate Specimen: Blood Result Value Ref Range LACTATE 1.62 0.50 - 2.20 mmol/L Lipase Specimen: Blood Result Value Ref Range LIPASE 38 16 - 63 U/L LFTs (hepatic panel) Specimen: Blood Result Value Ref Range ALKALINE PHOSPHATASE 110 39 - 117 U/L TOTAL BILIRUBIN <0.2 0.0 - 1.2 mg/dL DIRECT BILIRUBIN <0.1 0.0 - 0.2 mg/dL Bilirubin (Indirect) NOT CALCULATED 0 - 1.5 mg/dL AST 20 0 - 37 U/L ALT 17 0 - 40 U/L TOTAL PROTEIN 7.1 6.5 - 8.0 g/dL ALBUMIN 4.1 3.9 - 4.8 g/dL GLOBULIN 3.0 1 - 4.8 g/dL A/G Ratio 1.37 1.00 - 4.80 RATIO Basic metabolic panel Specimen: Blood Result Value Ref Range SODIUM 140 133 - 146 mmol/L CHLORIDE 103 96 - 108 mmol/L POTASSIUM 4.9 3.3 - 5.1 mmol/L CO2 27 21 - 35 mmol/L BUN 12 6 - 19 mg/dL CREATININE 1.10 0.5 - 1.5 mg/dL GLUCOSE 53 (L) 70 - 99 mg/dL CALCIUM 9.8 8.4 - 10.3 mg/dL EGFR 74 >59 mL/min/1.73m2 ANION GAP 15 10 - 20 mmol/L CBC and differential Specimen: Blood Result Value Ref Range WBC 10.55 4.00 - 11.00 K/uL RBC 5.26 4.50 - 5.90 M/uL HGB 15.9 13.5 - 17.5 g/dL HCT 48.5 41.0 - 53.0 % PLT 252 150 - 450 K/uL MCV 92.2 80.0 - 100.0 fL MCH 30.2 27.0 - 31.0 pg MCHC 32.8 32.0 - 36.0 g/dL RDW 12.7 11.5 - 14.5 % MPV 8.8 8.4 - 12.0 fL NRBC 0.00 0.00 /100 WBCs ABSOLUTE NRBC 0.00 0.00 K/uL DIFF METHOD Auto NEUTS 73.9 48.0 - 76.0 % LYMPHS 15.5 (L) 18.0 - 41.0 % MONOS 7.7 4.0 - 11.0 % EOS 2.4 0.0 - 5.0 % BASOS 0.3 0.0 - 1.5 % Granulocytes, immature (%) 0.2 0.0 - 0.9 % ABSOLUTE NEUTS 7.80 (H) 1.92 - 7.60 K/uL ABSOLUTE LYMPHS 1.64 0.72 - 4.10 K/uL ABSOLUTE MONOS 0.81 0.16 - 1.10 K/uL ABSOLUTE EOS 0.25 0.00 - 0.50 K/uL ABSOLUTE BASOS 0.03 0.00 - 0.15 K/uL Granulocytes, immature 0.02 0.00 - 0.09 K/uL Radiology Testing Bedside Ultrasound Final Result ED Medication from 01/24/2025 1613 to 01/24/2025 2221 Date/Time Order Dose Route Action Action by Comments 01/24/20252149 EDT oxyCODONE tablet 5 mg 5 mg Oral Given Dunia Rosado RN -- 01/24/20252149 EDT doxycycline hyclate (VIBRAMYCIN) 100 mg in sodium chloride 0.9% 100 mL [id number] mg Intravenous New Bag Diane Rosadoh C, RN -- MDM MDM Patient presents as above. On arrival vital signs are stable. He is tachycardic and hypertensive now likely due to pain he is appears quite uncomfortable. Will provide him with his oxycodone which hehas already been prescribed for his shoulder injury. He is ice on the affected lesion. Labs were obtained and likewise unremarkable which is overall reassuring per differential diagnosis could include tissue toxic spider bite such as brown recluse over this time no evidence of gross necrosis. Possibilities include early cellulitis/abscess. Will obtain bedside ultrasound to assess for evidence of drainable collection if present will drain and provide with antibiotics. If not drainable will provide with antibiotics. ED Course as of 01/24/252220Jan 24, 20252149 At this time bedside ultrasound demonstrates mostly edema/cobblestoning, Small <1cm collection, do not feel drainage is indicated will provide with abx and dc with care instructions and return precautions [JS] ED Course User Index [JS] Chadwick La DO Clinical Impressions as of 01/24/252220 Cellulitis of left upper extremity Clinical Impression Diagnosis Description Comment Final diagnosis Cellulitis of left upper extremity Cellulitis of left upper extremity -- Disposition: Home Chadwick La DO 01/24/252220 documented in this encounter Plan of Treatment Not on file documented as of this encounter Procedures Procedure Name Priority Date/Time Associated Diagnosis Comments US BEDSIDE Routine 01/24/2025 9:29 PM EDT LFTS (HEPATIC PANEL) STAT 01/24/2025 8:16 PM EDT CBC AND DIFFERENTIAL STAT 01/24/2025 8:16 PM EDT LIPASE STAT 01/24/2025 8:16 PM EDT LACTIC ACID (LACTATE) STAT 01/24/2025 8:16 PM EDT BASIC METABOLIC PANEL STAT 01/24/2025 8:16 PM EDT ECG 12-LEAD STAT 01/24/2025 4:25 PM EDT documented in this encounter Results * US BEDSIDE (01/24/2025 9:29 PM EDT) Anatomical Region Laterality Modality Ultrasound Narrative 01/24/2025 9:29 PM EDT Chadwick La DO 01/24/2025 9:53 PM Bedside Ultrasound Date/Time: 01/24/2025 9:29 PM Performed by: Chadwick La DO Authorized by: Chadwick La DO Exam Type: Soft Tissue Soft Tissue Exam Findings & Impression: Indications: patient with erythema and swelling Body Area: Upper extremity Upper Extremity Location Details: Left hand Edema: the soft tissue was visualized and edema was present Fluid Collection: the soft tissue was visualized and a fluid collection was present (anechoic or mobile debris) Overall Impressions: edema and fluid collection Images: Images Saved: Yes Accession Number: [id number] us Chadwick La DO IMG POINT OF CARE EXAMS Final Result * Lactate (01/24/2025 8:16 PM EDT) LACTATE 1.62 0.50 - 2.20 mmol/L [facility] Blood 01/24/2025 8:16 PM EDT 01/24/2025 8:21 PM EDT Isaias Pool PA-C LAB BLOOD ORDERABLES Final R esult Performing Organization Address City/State/[facility] Co de Phone Number [address] [address] * Lipase (01/24/2025 8:16 PM EDT) LIPASE 38 16 - 63 U/L [facility] Blood 01/24/2025 8:16 PM EDT 01/24/2025 8:21 PM EDT Isaias Pool PA-C LAB BLOOD ORDERABLES Final R esult Performing Organization Address City/[facility]/ZIP Co de Phone Number [address] [address] * LFTs (hepatic panel) (01/24/2025 8:16 PM EDT) Pathologist [facility] ALKALINE PHOSPHATASE 110 39 - 117 U/L [facility] TOTAL BILIRUBIN <0.2 0.0 - 1.2 mg/dL [facility] DIRECT BILIRUBIN <0.1 0.0 - 0.2 mg/dL [facility] Bilirubin (Indirect) NOT CALCULATED 0 - 1.5 mg/dL [facility] AST 20 0 - 37 U/L [facility] ALT 17 0 - 40 U/L [facility] TOTAL PROTEIN 7.1 6.5 - 8.0 g/dL [facility] ALBUMIN 4.1 3.9 - 4.8 g/dL [facility] GLOBULIN 3.0 1 - 4.8 g/dL [facility] A/G Ratio 1.37 1.00 - 4.80 RATIO [facility] Blood 01/24/2025 8:16 PM EDT 01/24/2025 8:21 PM EDT us Isaias Pool PA-C LAB BLOOD ORDERABLES [facility] Performing Organization Address [facility] Co de Phone Number [address] [address] * (ABNORMAL) Basic metabolic panel (01/24/2025 8:16 PM EDT) Pathologist [facility] SODIUM 140 133 - 146 mmol/L [facility] CHLORIDE 103 96 - 108 mmol/L [facility] POTASSIUM 4.9 3.3 - 5.1 mmol/L [facility] CO2 27 21 - 35 mmol/L [facility] BUN 12 6 - 19 mg/dL [facility] CREATININE 1.10 0.5 - 1.5 mg/dL [facility] GLUCOSE 53(L) 70 - 99 mg/dL [facility] CALCIUM 9.8 8.4 - 10.3 mg/dL [facility] EGFR 74 >59 mL/min/1.7 3m2 [facility] Comment:Estimated glomerular filtration rate calculated using the CKD-EPI refit equation. ANION GAP 15 10 - 20 mmol/L [facility] Blood 01/24/2025 8:16 PM EDT 01/24/2025 8:21 PM EDT us Isaias Pool PA-C LAB BLOOD ORDERABLES Final R esult [address] [address] * (ABNORMAL) CBC and differential (01/24/2025 8:16 PM EDT) WBC 10.55 4.00 - 11.00 K/uL [facility] RBC 5.26 4.50 - 5.90 M/uL [facility] HGB 15.9 13.5 - 17.5 g/dL [facility] HCT 48.5 41.0 - 53.0 % [facility] PLT 252 150 - 450 K/uL [facility] MCV 92.2 80.0 - 100.0 fL [facility] MCH 30.2 27.0 - 31.0 pg [facility] MCHC 32.8 32.0 - 36.0 g/dL [facility] RDW 12.7 11.5 - 14.5 % [facility] MPV 8.8 8.4 - 12.0 fL [facility] NRBC 0.00 0.00 /100 WBCs [facility] ABSOLUTE NRBC 0.00 0.00 K/uL [facility] DIFF METHOD Auto [facility] NEUTS 73.9 48.0 - 76.0 % [facility] LYMPHS 15.5(L) 18.0 - 41.0 % [facility] MONOS 7.7 4.0 - 11.0 % [facility] EOS 2.4 0.0 - 5.0 % [facility] BASOS 0.3 0.0 - 1.5 % [facility] Granulocytes, immature (%) 0.2 0.0 - 0.9 % [facility] ABSOLUTE NEUTS 7.80(H) 1.92 - 7.60 K/uL [facility] ABSOLUTE LYMPHS 1.64 0.72 - 4.10 K/uL [facility] ABSOLUTE MONOS 0.81 0.16 - 1.10 K/uL [facility] ABSOLUTE EOS 0.25 0.00 - 0.50 K/uL [facility] ABSOLUTE BASOS 0.03 0.00 - 0.15 K/uL [facility] Granulocytes, immature 0.02 0.00 - 0.09 K/uL [facility] Blood 01/24/2025 8:16 PM EDT 01/24/2025 8:21 PM EDT us Isaias Pool PA-C LAB BLOOD ORDERABLES Final R esult Performing Organization Address [facility] Co de Phone Number [address] [address] * ECG 12-LEAD (01/24/2025 4:25 PM EDT) Ventricular Rate EKG/MIN 110 BPM [facility] Atrial Rate [address] [facility] [address] Interval 154 ms [facility] QRS Duration 102 ms [facility] QT Interval 356 ms [facility] QTC Interval 481 ms [facility] P [place] 62 degrees [facility] R Wave [place] 80 degrees [facility] T Wave [place] 61 degrees [facility] 01/24/2025 4:25 PM EDT 01/25/2025 7:18 AM EDT Narrative [facility] - 01/25/2025 7:18 AM EDT Sinus tachycardia Possible Left atrial enlargement Borderline ECG When compared with ECG of 10-May-2024 02:50, No significant change was found Confirmed by Bobby Garcia ([id number]) on 01/25/2025 7:18:53 AM us Sid Hutchinson MD ECG ORDERABLES F inal Result Performing Organization Address City/[facility]/ZIP Co de Phone Number [facility] documented in this encounter Visit Diagnoses Diagnosis Cellulitis of left upper extremity- Primary documented in this encounter Administered Medications Inactive Administered Medications - up to 3 most recent administrations Medication Order MAR Action Action Date Dose Rate Site doxycycline hyclate (DORYX) tablet (To-Go) 1 kit 1 kit, Oral, Once, On Fri01/24/25 at 2200, For 1 dose, Take 1 tablet (100 mg) by mouth every 12 hours (twice daily) for 7 days., Indication: Infection WITHOUT sepsis, Infection Source: Skin & Soft Tissue Infection Provider dispensed take home meds 01/24/2025 11:49 PM EDT 1 kit doxycycline hyclate (VIBRAMYCIN) 100 mg in sodium chloride 0.9% 100 mL IVPB-MBP 100 mg, Intravenous, Administer over 120 Minutes, at 50 mL/hr, Once, On Fri01/24/25 at 2145, For 1 dose, This is a Minibag Plus preparation., Indication: Infection WITHOUT sepsis, Infection Source: Skin & Soft Tissue Infection New Bag 01/24/2025 9:50 PM EDT 100 mg 50 mL/hr oxyCODONE tablet 5 mg 5 mg, Oral, Once, On Fri01/24/25 at 2130, For 1 dose Given 01/24/2025 9:50 PM EDT 5 mg documented in this encounter Active and Recently Administered Medications Times are shown in EDT. Scheduled Medication Order 01/23/2025 01/24/2025 01/25/2025 doxycycline hyclate (DORYX) tablet (To-Go) 1 kit (COMPLETED) 1 kit, Oral, Once, On Fri01/24/25 at 2200, For 1 dose, Take 1 tablet (100 mg) by mouth every 12 hours (twice daily) for 7 days., Indication: Infection WITHOUT sepsis, Infection Source: Skin & Soft Tissue Infection 2348 (Provider dispensed take home meds - Provider: Dunia Rosado RN) doxycycline hyclate (VIBRAMYCIN) 100 mg in sodium chloride 0.9% 100 mL IVPB-MBP (COMPLETED) 100 mg, Intravenous, Administer over 120 Minutes, at 50 mL/hr, Once, On Fri01/24/25 at 2145, For 1 dose, This is a Minibag Plus preparation., Indication: Infection WITHOUT sepsis, Infection Source: Skin & Soft Tissue Infection 2149 (New Bag - Provider: Dunia Rosado RN) 0002 (Stopped - Provider: Dunia Rosado RN) oxyCODONE tablet 5 mg (COMPLETED) 5 mg, Oral, Once, On Fri01/24/25 at 2130, For 1 dose 2150 (Given - Provider: Dunia Rosado, RN) documented in this encounter Care Teams District Manager Postal Service Relationship Specialty Start Date End Date Pcp, Unknown PCP - General 05/10/24 documented as of this encounter Additional Source Comments The information contained in this document represents components of the legal health record. It is not the complete legal health record.[facility]
--- OUTSIDE RECORDS SUMMARY | 2025-01-24 21:30 | XMS_ITS | Encounter Summary ---
Author Organization [facility] Address [address] [place] [phone] Phone Care Team Providers Care Workers Compensation Paralegal Name Role Phone Pcp, Unknown Primary Care Provider Unavailabl e Encounter Details Date Type Department Care Team (Late st Contact Info) Description 01/24/2025 9:30 PM EDT Ancillary Procedure [facility], [address] [address] [address], DO [address] [place] [address] [email or web address] Arrived Social History Tobacco Use Types Packs/Day Years [...] 4:20 PM EDT Amara Cavanaugh RN * [place] Suicide Severity Rating Scale (Screener/Recent Self-Report) Question Answer Date of Assessment Author 1. Wish to be (Past 1 Month) No 025 4:20 PM EDT Amara Cavanaugh RN 2. Non-Specific Active Suici kervin Thoughts (Past 1 Month) No 01/24/2025 4:20 PM EDT Víctor Cavanaugh RN 6. Suicidal Behavior (Lifetime) No 4:20 PM EDT Amara Cavanaugh RN documented as of this encounter Plan of Treatment Not on file documented as of this encounter Procedures Procedure Name Priority Date/Time Associated Diagnosis Comments US BEDSIDE Routine 01/24/2025 9:29 PM EDT documented in this encounter Results [...] collection Images: Images Saved: Yes Accession Number: [id number] us Chadwick La DO IMG POINT OF CARE EXAMS Final Result documented in this encounter Visit Diagnoses Not on filedocumented in this encounter Care Teams Workers Compensation Paralegal Relationship Specialty Start Date End Date Pcp, Unknown PCP - General 05/10/24 documented as of this encounter Additional Source Comments The information contained in this document represents components of the legal health record. It is not the complete legal health record.[facility]
--- NOTE | 2025-01-27 13:25 | MHC.OFFVIS ---
Intake Visit Reasons: PO LT shoulder RTC 12/22/24 NE Intake Note: Isaias is a 64 year old -- hand dominant male who presents today for a post operative appointment about 5 weeks s/p Left RTC Repair with large collagen patch 12/22/24. At his first post operative appointment with Susy Newberry a STAT Physical Therapy order was sent to [facility], however they have multiple attempts to contact the patient with no success. - Today patient states that he is doing fantastic. He has been doing home exercises as he is unable to afford outpatient PT. Allergies pneumococcal vaccine (PNEUMOCOCCAL VACCINE) Allergy (Severe, Verified 01/27/25 14:34) ANAPHYLAXIS diphenhydramine (From Benadryl) Allergy (Intermediate, Verified 01/27/25 14:34) Hives Penicillins (PCN) Allergy (Intermediate, Verified 01/27/25 14:34) Hives HPI HPI PO LT shoulder RTC 12/22/24 NE: Details: Isaias is a 64 year old -- hand dominant male who presents today for a post operative appointment about 5 weeks s/p Left RTC Repair with large collagen patch 12/22/24. At his first post operative appointment with Susy Newberry a STAT Physical Therapy order was sent to [facility], however they have multiple attempts to contact the patient with no success. - Today patient states that he is doing fantastic. He has been doing home exercises as he is unable to afford outpatient PT. [facility] Medical History CVA (cerebral vascular accident) Hyperlipidemia GERD (gastroesophageal reflux disease) Kidney stones Hypertension Surgical History History of rotator cuff surgery History of kidney surgery Previous back surgery Family History Mother Essential hypertension Father CAD (coronary artery disease) Brother Brain cancer Social History Housing: Apartment Are you a primary human services care specialist to a significant other at home: No Do you presently have visiting nurse or other home services: No Alcohol intake: current Alcohol intake frequency: holidays/special occasions only Comment: COUNTS CORRECT Patient Tobacco Use Status: Current everyday Tobacco user Tobacco use type: Cigarette Cigarette Packs Per Day: 0.5 Cigarettes Per Day: 10.0 Years Smoked: 48 e-Cigarette/Vaping Use: Never Used Second Hand Smoke Exposure: Yes Advance Directives: No Advance Directives Information Provided: Yes service: No Current occupational status: disabled Cognitive needs: No Hearing needs: No Vision needs: No Physical Exam Extrem Other: portals c/d/i 25/90/120/S1 neg ec Assessment & Plan Assessment & Plan (1) S/P left rotator cuff repair: Code(s): Z98.890 - Other specified postprocedural states Category: Surgical Plan: Isaias is doing very well. I recommend he discontinue aling and continue PT. Counseled him on expected time frame for recovery as he is at risk for overuse as he is doing exceptionally well f/u 6 weeks Coding Level of Care Code Global (53682) Diagnoses S/P left rotator cuff repair Z98.890
--- OUTSIDE RECORDS SUMMARY | 2025-01-27 15:12 | XMS_ITS | Clinical Summary ---
Author Organization [facility] Address [address] [place] [address] [place] [address] Phone Care Team Providers Care Brood Station Manager Name Role Phone Pcp, Unknown Primary Care Provider Unavailabl e Allergies Active Allergy Reactions Criticality Noted Date Comments Diphenhydramine Hcl Rash Low 03/17/2020 Cephalexin Hives 12/23/2023 Propoxyphene N-Acetaminophen 019 Penicillins 06/04/2018 Pneumococcal 23-Tatiana Ps Vaccine Hives 02/22 Sulfamethoxazole 12/23/2023 Sulfamethoxazole-Trimethoprim Hives,Rash Low 2014 Medications aspirin 81 MG EC tablet Take 81 mg by mouth daily. Active hydrocortisone (ANUSOL-HC) 2.5 % rectal cream Place rectally 2 (two) times a day. 30 g 0 Active Additional Information Patient not taking.Reported on 01/16/2021 lisinopril (PRINIVIL,ZEST RIL) 10 MG tablet Take 1 tablet (10 mg total) by mouth daily. 30 tablet 1 Active atorvastatin (LIPITOR) 10 MG tablet Take by mouth daily. Active hydrOXYzine (VISTARIL) 25 MG capsule Take 25 mg by mouth 3 (three) times a day as needed for itching or anxiety. Active nicotine (NICODERM CQ) 14 mg/[address] 1 patch onto the skin daily. 1 Active Additional Information Patient not taking.Reported on 12/23/2023 nicotine polacrilex (NICORETTE) [address] 1 each (2 mg total) inside cheek every 2 (two) hours as needed for smoking cessation. 1 Active Additional Information Patient not taking.Reported on 12/23/2023 ibuprofen (ADVIL,MOTRIN) 600 MG tablet Take 1 tablet (600 mg total) by mouth every 6 (six) hours as needed. 1 Active melatonin 5 mg Tab Take 1 tablet (5 mg total) by mouth nightly at bedtime. 1 Active Additional Information Patient not taking.Reported on 01/16/2021 METOPROLOL SUCCINATE ORAL Take by mouth. Active OMEPRAZOLE, BULK, MISC by Miscellaneous route. Active zolpidem tartrate (ZOLPIDEM ORAL) Take by mouth. Activ e quetiapine fumarate (QUETIAPINE ORAL) Take by mouth. Activ e sertraline HCl (SERTRALINE ORAL) Take by mouth. Activ e traMADoL (ULTRAM) 50 mg tablet 1 Active meloxicam (MOBIC) 15 MG tablet 1 Active morphine (MSIR) 15 MG tablet Take 1 tablet (15 mg total) by mouth every 6 (six) hours as needed for pain (specific location in comments). Partial fill ok 8 tablet 4 Active oxyCODONE 5 MG immediate release tablet Take 1 tablet (5 mg total) by mouth every 6 (six) hours as needed for pain (specific location in comments). Partial fill ok 10 tablet 5 Active doxycycline hyclate (DORYX) 100 mg tablet (To-Go) Take 100 mg (1 tablet) by mouth twice daily for 7 days 5 02/01/20 25 Active Active Problems Problem Noted Date Diagnosed Date Shoulder pain 09/24/2020 Episode of shaking 09/21/2020 Assessment & Plan (09/23/2020 6:45 PM EDT): He presented with 1 to 2 weeks of intermittent upper extremity shaking that he describes as an electric jolt going through his body and making him move. Generally at home these had been precipitated by neck pain. He had about 5-10 distinct episodes, followed by some stuttering speech. He was admitted for TIA work-up and an EEG. His work-up thus far has been negative. He has had 2 episodes since being admitted. Both were witnessed by the nurses and described as upper extremity shaking. Case was discussed by who did not think that a focal seizure could be causing this but stated in his note it could not be entirely ruled out. Another thought was that the zolpidem may be provoking episodes of myoclonus. After the episode on the evening of 09/22 zolpidem held. He has had a better day today. Patient also wondered if his cardiac medications could be a factor. --If continued improvement, plan transfer to acute rehab tomorrow and outpatient neurology follow-up --Continue holding zolpidem --If he has another seizure-like episode, video EEG to be considered Tobacco abuse 09/21/2020 Assessment & Plan (09/21/2020 1:36 AM EDT): With chronic use Trial patch and gum Pulmonary nodule less than 6 mm in diameter with low risk for malignant neoplasm 09/21/2020 Assessment & Plan (09/21/2020 1:48 AM EDT): 5mm nodule in an active smoker Rec to have FU within [address] read. Encounters Date Type Department Care Team Description 01/24/2025 9:30 PM EDT Ancillary Procedure [facility], Ultrasound [address] [address] Chadwick La DO Arrived 01/24/2025 9:21 PM EDT - 01/25/2025 12:02 AM EDT Emergency [facility] [address] [place] [address] Chadwick La, DO Discharge Disposition: Home or Self Care 12/16/2024 10:38 PM EDT - 12/17/2024 5:47 AM EDT Emergency [facility] Emergency [address] [place] [address] Elinor Lee MD Discharge Disposition: Home or Self Care 12/16/2024 Procedure Pass [facility], Ct Scan - [address] [address] from Last 3 Months Immunizations Immunization Administration Dates Next Due Td, unspecified formulation 07/17/2016 Social History Tobacco Use Types Packs/Day Years Used Date Smoking Tobacco: Every Day Cigarettes Smokeless Tobacco: Never Tobacco Cessation:Ready to Q uit: Not Asked; Counseling Given: Not Answered Alcohol Use Standard Drinks/Week Comments Yes 0 [...] not to disclose 2019 6:11 PM EST Last Filed Vital Signs Vital Sign Reading Time Taken Comments Blood Pressure 159/93 01/24/2025 11:16 PM EDT Pulse 92 01/24/2025 11:16 PM EDT Temperature 36.3 C (97.4 F) 01/24/2025 11:16 PM EDT Respiratory Rate 18 01/24/2025 11:16 PM EDT Oxygen Saturation 98% 01/24/2025 11:16 PM EDT Inhaled Oxygen Concentration - - Weight 77.1 kg (170 lb) 12/16/2024 7:41 PM EDT Height 180.3 cm (5' 11 ) 12/16/2024 7:41 PM EDT Body Mass Index 23.71 12/16/2024 7:41 PM EDT Plan of Treatment Health Maintenance Due Date Last Done Comments DEPRESSION SCREENING 1970 SMOKING Hx and SMOKELESS TOBACCO SCREENING 09/28/1971 HEPATITIS C SCREENING 1976 COLOGUARD 09/28/2003 COLONOSCOPY 09/28/2003 COLORECTAL CANCER SCREENING 09/28/2003 FIT TEST 09/28/2003 FOBT 09/28/2003 SIGMOIDOSCOPY 09/28/2003 VIRTUAL COLONOSCOPY 09/28/2003 ZOSTER VACCINES (2 of 2) 03/22/2020 01/26/2020 INFLUENZA VACCINE (#1) 2024 0, 01/06/2020, 03/28/2019, Additional history exists COVID-19 VACCINE ( season) 2025 06/23/2020, 05/26/2020 LIPID PANEL 09/21/2025 09/21/2020 CREATININE LEVEL 01/24/2026 01/24/2025, 12/2024, 05/10/2024, Additional history exists POTASSIUM LEVEL 01/24/2026 01/24/2025, 08/0 12/2024, 05/10/2024, Additional history exists Adult Td,Tdap Booster 07/17/2026 07/17/2016 RSV VACCINE (1 - 1-dose 75+ series) 2033 ABDOMINAL AORTIC ANEURYSM (AAA) SCREENING Completed 12/17/2024, 03/24/2020, 03/17/2020 HEPATITIS A VACCINES Aged Out No long er eligible based on patient's age to complete this topic HIB VACCINES Aged Out No longer eligi ble based on patient's age to complete this topic MENINGOCOCCAL VACCINES (ACWY) Aged Out No longer eligible based on patient's age to complete this topic MENINGOCOCCAL VACCINES (B) Aged Out N o longer eligible based on patient's age to complete this topic Medical Devices Not on file Procedures Procedure Name Priority Date/Time Associated Diagnosis Comments US BEDSIDE Routine 01/24/2025 9:29 PM EDT LACTIC ACID (LACTATE) STAT 01/24/2025 8:16 PM EDT LIPASE STAT 01/24/2025 8:16 PM EDT LFTS (HEPATIC PANEL) STAT 01/24/2025 8:16 PM EDT BASIC METABOLIC PANEL STAT 01/24/2025 8:16 PM EDT CBC AND DIFFERENTIAL STAT 01/24/2025 8:16 PM EDT ECG 12-LEAD STAT 01/24/2025 4:25 PM EDT URINALYSIS W/REFLEX URINE CULTURE STAT 12/17/2024 3:[address] ABDOMEN/PELVIS WITH CONTRAST Routine 12/17/2024 1:09 AM EDT BASIC METABOLIC PANEL STAT 12/17/2024 12:08 AM EDT CBC AND DIFFERENTIAL STAT 12/17/2024 12:08 AM EDT LIPID PANEL Routine 09/21/2020 4:57 AM EDT from Last 3 Months or Most Recently Relevant to Health Maintenance Results * US BEDSIDE (01/24/2025 9:29 PM [...] collection Images: Images Saved: Yes Accession Number: [id number] us Chadwick La DO IMG POINT OF CARE EXAMS Final Result * LFTs (hepatic panel) (01/24/2025 8:16 PM EDT) ALKALINE PHOSPHATASE 110 39 - 117 U/L [facility] TOTAL BILIRUBIN <0.2 0.0 - 1.2 mg/dL [facility] DIRECT BILIRUBIN <0.1 0.0 - 0.2 mg/dL [facility] Bilirubin (Indirect) NOT CALCULATED 0 - 1.5 mg/dL [facility] AST 20 0 - 37 U/L [facility] ALT 17 0 - 40 U/L [facility] TOTAL PROTEIN 7.1 6.5 - 8.0 g/dL [facility] ALBUMIN 4.1 3.9 - 4.8 g/dL [facility] GLOBULIN 3.0 1 - 4.8 g/dL [facility] A/G Ratio 1.37 1.00 - 4.80 RATIO [facility] Blood 01/24/2025 8:16 PM EDT 01/24/2025 8:21 PM EDT us Isaias Pool PA-C LAB BLOOD ORDERABLES Final R esult [facility] [address] [place] [address] * (ABNORMAL) CBC and differential (01/24/2025 8:16 PM EDT) Only the most recent of2 resultswithin the time period is included. WBC 10.55 4.00 - 11.00 K/uL [facility] RBC 5.26 4.50 - 5.90 M/uL [facility] HGB 15.9 13.5 - 17.5 g/dL [facility] HCT 48.5 41.0 - 53.0 % [facility] PLT 252 150 - 450 K/uL [facility] MCV 92.2 80.0 - 100.0 fL [facility] MCH 30.2 27.0 - 31.0 pg [facility] MCHC 32.8 32.0 - 36.0 g/dL [facility] RDW 12.7 11.5 - 14.5 % [facility] MPV 8.8 8.4 - 12.0 fL [facility] NRBC 0.00 0.00 /100 WBCs [facility] ABSOLUTE NRBC 0.00 0.00 K/uL [facility] DIFF METHOD Auto [facility] NEUTS 73.9 48.0 - 76.0 % [facility] LYMPHS 15.5(L) 18.0 - 41.0 % [facility] MONOS 7.7 4.0 - 11.0 % [facility] EOS 2.4 0.0 - 5.0 % [facility] BASOS 0.3 0.0 - 1.5 % [facility] Granulocytes, immature (%) 0.2 0.0 - 0.9 % [facility] ABSOLUTE NEUTS 7.80(H) 1.92 - 7.60 K/uL [facility] ABSOLUTE LYMPHS 1.64 0.72 - 4.10 K/uL [facility] ABSOLUTE MONOS 0.81 0.16 - 1.10 K/uL [facility] ABSOLUTE EOS 0.25 0.00 - 0.50 K/uL [facility] ABSOLUTE BASOS 0.03 0.00 - 0.15 K/uL [facility] Granulocytes, immature 0.02 0.00 - 0.09 K/uL [facility] Blood 01/24/2025 8:16 PM EDT 01/24/2025 8:21 PM EDT Isaias Pool PA-C LAB BLOOD ORDERABLES Final R esult [address] [address] * Lipase (01/24/2025 8:16 PM EDT) LIPASE 38 16 - 63 U/L [facility] Blood 01/24/2025 8:16 PM EDT 01/24/2025 8:21 PM EDT Isaias Pool PA-C LAB BLOOD ORDERABLES [facility] Performing Organization Address [facility] Co de Phone Number [address] [address] * Lactate (01/24/2025 8:16 PM EDT) LACTATE 1.62 0.50 - 2.20 mmol/L [facility] Blood 01/24/2025 8:16 PM EDT 01/24/2025 8:21 PM EDT Isaias Pool PA-C LAB BLOOD ORDERABLES Final R esult Performing Organization Address [facility]/ZIP Co de Phone Number [address] [address] * (ABNORMAL) Basic metabolic panel (01/24/2025 8:16 PM EDT) Only the most recent of2 resultswithin the time period is included. SODIUM 140 133 - 146 mmol/L [facility] CHLORIDE 103 96 - 108 mmol/L [facility] POTASSIUM 4.9 3.3 - 5.1 mmol/L [facility] CO2 27 21 - 35 mmol/L [facility] BUN 12 6 - 19 mg/dL [facility] CREATININE 1.10 0.5 - 1.5 mg/dL [facility] GLUCOSE 53(L) 70 - 99 mg/dL [facility] CALCIUM 9.8 8.4 - 10.3 mg/dL [facility] EGFR 74 >59 mL/min/1.7 3m2 [facility] Comment:Estimated glomerular filtration rate calculated using the CKD-EPI refit equation. ANION GAP 15 10 - 20 mmol/L [facility] Blood 01/24/2025 8:16 PM EDT 01/24/2025 8:21 PM EDT us Isaias Pool PA-C LAB BLOOD ORDERABLES Final R esult Performing Organization Address [facility] Co de Phone Number [address] [address] * ECG 12-LEAD (01/24/2025 4:25 PM EDT) Ventricular Rate EKG/MIN 110 BPM [facility] Atrial Rate 110 BPM [facility] NJ Interval 154 ms [facility] QRS Duration 102 ms [facility] QT Interval 356 ms [facility] QTC Interval 481 ms [facility] P Kirvin 62 degrees [facility] R Wave Kirvin 80 degrees [facility] T Wave Kirvin 61 degrees [facility] 01/24/2025 4:25 PM EDT 01/25/2025 7:18 AM EDT Narrative [facility] - 01/25/2025 7:18 AM EDT Sinus tachycardia Possible Left atrial enlargement Borderline ECG When compared with ECG of 10-May-2024 02:50, No significant change was found Confirmed by Bobby Garcia ([id number]) on 01/25/2025 7:18:53 AM us Sid Hutchinson MD ECG ORDERABLES F inal Result Performing Organization Address City/[facility] Co de Phone Number [email or web address] * (ABNORMAL) Urinalysis w/reflex Urine Culture (12/17/2024 3:24 AM EDT) COLOR Yellow Yellow [facility] CLARITY Clear [facility] GLUCOSE Negative Negative [facility] BILI Negative Negative [facility] KETONES Negative Negative [facility] SPECIFIC GRAVITY 1.010 1.005 - 1.030 [facility] BLOOD Trace(A) Negative [facility] PH 6.0 5.0 - 8.0 [facility] Protein-UA Negative Negative [facility] NITRITE Negative Negative [facility] Leukocyte esterase, ur Negative Negative [facility] Urine (Urine) 12/17/2024 3:2 4 AM EDT 12/17/2024 3:38 AM EDT us Pham Lopez PA-C URINE ORDERABLES Final Resu lt [facility] [address] [place] [address] * CT ABDOMEN/PELVIS WITH CONTRAST (12/17/2024 1:09 AM EDT) Anatomical Region Laterality Modality Abdomen, Pelvis Computed Tomogra phy 12/17/2024 2:21 AM EDT Impressions 12/17/2024 2:34 AM EDT 8 mm stone in the right renal pelvis with associated urothelial thickening and mild surrounding fat stranding, likely represent pyelitis. No hydronephrosis. Additional 4 mm nonobstructive right lower pole calculus. Narrative 12/17/2024 2:[address] ABDOMEN/PELVIS WITH CONTRAST Referring clinician's provided indication for this examination in Epic: * Abdominal pain, hernia suspected TECHNIQUE: Multidetector-row CT of the abdomen and pelvis was performed after administration of intravenous contrast using tailored dose modulation techniques. Images were reconstructed in the axial, coronal, and sagittal planes. COMPARISON: CT ABDOMEN/PELVIS WITHOUT CONTRAST FINDINGS: Lower Chest: No consolidation or pleural effusions. Liver: No focal lesions. Biliary: Normal gallbladder. No biliary ductal dilatation. Spleen: No splenomegaly or focal lesions. Pancreas: No masses. Prominent main pancreatic duct measuring up to 4 mm. Adrenal Glands: No nodules. Kidneys/Ureters: 8 mm stone in the right renal pelvis with associated urothelial thickening and mild surrounding fat stranding. 4 mm nonobstructive right lower pole calculus. No hydronephrosis. No enhancing renal masses. No left renal mass, hydronephrosis or stones. Bowel: Normal appendix. No wall thickening or dilatation. Peritoneum/Retroperitoneum: No masses, pneumoperitoneum, or fluid. Lymph Nodes: No lymphadenopathy. Pelvic Organs/Bladder: Decompressed urinary bladder. Mild prostatomegaly with median lobe hypertrophy. Vessels: No abdominal aortic aneurysm. Bones/Soft Tissues: Multilevel degenerative changes of the spine. Status post L3-L4 posterior spinal fixation. No osseous destructive lesions. Procedure Note Laura Smith MBBS - 12/17/2024 CT ABDOMEN/PELVIS WITH CONTRAST Referring clinician's provided indication for this examination in Epic: *Abdominal pain, hernia suspected TECHNIQUE: Multidetector-row CT of the abdomen and pelvis was performedafter administration of intravenous contrast using tailored dosemodulation techniques. Images were reconstructed in the axial, coronal,and sagittal planes. COMPARISON: CT ABDOMEN/PELVIS WITHOUT CONTRAST FINDINGS: Lower Chest: No consolidation or pleural effusions. Liver: No focal lesions. Biliary: Normal gallbladder. No biliary ductal dilatation. Spleen: No splenomegaly or focal lesions. Pancreas: No masses. Prominent main pancreatic duct measuring up to 4mm. Adrenal Glands: No nodules. Kidneys/Ureters: 8 mm stone in the right renal pelvis with associatedurothelial thickening and mild surrounding fat stranding. 4 mmnonobstructive right lower pole calculus. No hydronephrosis. No enhancingrenal masses. No left renal mass, hydronephrosis or stones. Bowel: Normal appendix. No wall thickening or dilatation. Peritoneum/Retroperitoneum: No masses, pneumoperitoneum, or fluid. Lymph Nodes: No lymphadenopathy. Pelvic Organs/Bladder: Decompressed urinary bladder. Mild prostatomegalywith median lobe hypertrophy. Vessels: No abdominal aortic aneurysm. Bones/Soft Tissues: Multilevel degenerative changes of the spine. Statuspost L3- L4 posterior spinal fixation. No osseous destructive lesions. IMPRESSION: 8 mm stone in the right renal pelvis with associated urothelial thickeningand mild surrounding fat stranding, likely represent pyelitis. Nohydronephrosis. Additional 4 mm nonobstructive right lower polecalculus. us Pham Lopez PA-C IMG CT ABD/PELVIS Final Res ult * (ABNORMAL) Lipid panel (09/21/2020 4:57 AM EDT) HDL 58 mg/dL [facility] Comment: Interpretation <40 mg/dL: Low HDL cholesterol (major risk factor for CHD) Greater than or equal to 60 mg/dL: High HDL cholesterol ( negative risk factor for CHD) HDL - cholesterol is affected by a number of factors, e.g. smoking, excerise, hormones, sex and age. CHOLESTEROL 165 0 - 240 mg/dL [facility] TRIGLYCERIDES 82 30 - 160 mg/dL [facility] LDL 91 50 - 129 mg/dL [facility] Comment: LDL levels in terms of risk for coronary heart disease: <100 mg/dL: Optimal 100-129 mg/dL: Near or above optimal 130-159 mg/dL: Borderline high 160-189 mg/dL: High >190 mg/dL: Very High CARDIAC RISK RATIO 2.8(L) 3.4 - 5.0 [facility] Blood 09/21/2020 4:57 AM EDT 09/21/2020 6:00 AM EDT Fanny Oswald MD LAB BLOOD ORDERABLES Final Result Performing Organization Address City/State/[facility] Co de Phone Number [facility] [address] [place] [address] from Last 3 Months or Most Recently Relevant to Health Maintenance Insurance [id number] [place] [address] MEDICARE PART A & B Member Subscriber Plan / Payer (Ef fective 2010-Present) Name:Isaias Miller Member ID:[id number] Relation to Subscriber:Self Name:Isaias Miller Subscriber ID:[id number] Payer ID:[id number] Group ID:Not on file Type:Medicare Address: [facility] [employer] [facility]. [address] [place] [address] [employer] PPO MEDICARE REPLACEMENT [facility] [id number] [place] [address] MEDICARE PART A & B Member Subscriber Plan / Payer (Ef fective 2010-Present) Name:Isaias Miller Member ID:[id number] Relation to Subscriber:Self Name:Paul Isaias Subscriber ID:[id number] Payer ID:[id number] Group ID:Not on file Type:Medicare Address: [facility] [employer] [facility] [address] [place] [address] [facility] REPLACEMENT [facility] MED[facility] PART A & B MEDICARE PART A & B MEDICARE PART A & B [facility] [id number] [place] [address] MEDICARE PART A & B [facility] MEDICARE REPLACEMENT [facility] [address] [place] [address] MEDICARE PART A & B [facility] [address] [place] [address] MEDICARE PART A & [place] [address] MEDICARE PART A & B [employer] PPO MEDICARE REPLACEMENT [facility] Advance Directives For more information, please contact: [phone] (9AM - 5PM [facility], Friday-Friday) Documents on File Type Date Recorded 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 Healthcare Proxy 09/25/2020 4:16 PM Healthcare Proxy 09/24/2020 10:23 AM healt h care proxy * Full Code (Latest Code Status on File) Date Activated Date Inactivated Comments 09/21/2020 2:53 AM Question Answer Comments Code Status Confirmed With: Patient Healthcare Agents on File Name Relationship Healthcare Agent Relationshi p Communication Amrita Miller Daughter .Primary Health Care Agent (Proxy form on file) Care Teams Brood Station Manager Relationship Specialty Start Date End Date Pcp, Unknown PCP - General 05/10/24 Additional Source Comments The information contained in this document represents components of the legal health record. It is not the complete legal health record.[facility]
--- OUTSIDE RECORDS SUMMARY | 2025-01-27 15:12 | XMS_ITS | Encounter Summary ---
Author Organization [facility] Address [address] [place] [address] [place] [address] Phone Care Team Providers Care Staff Air Defense Officer Name Role Phone Ary Ritchie MD Primary Care Provider [phone] Yanet Pineda NP Primary Care Provider [phone] Pcp, Unknown Primary Care Provider Unavailabl e Encounter Details Date Type Department Care Team (Late st Contact Info) Description 09/10/2021 Transcribe Orders Virtual Department [address] [place] [address] Ary Ritchie MD [address] [place] [address] [email or web address] Solitary pulmonary nodule (Primary Dx) Social History Tobacco Use Types Packs/Day Years Used Date Smoking Tobacco: Every Day Cigarettes Smokeless Tobacco: Never Alcohol Use Standard Drinks/Week Comments Yes 0 (1 standard drink = 0.6 oz pur e alcohol) rare Sex and Gender Information Value Date Recorded Sex Assigned at Male 06/04/2018 8:18 PM EST Legal Sex Male 6:28 PM EDT Gender Identity Male 06/04/2018 8:18 PM EST Sexual Orientation Choose not to disclose 2019 6:11 PM EST documented as of this encounter Plan of Treatment Not on file documented as of this encounter Visit Diagnoses Diagnosis Solitary pulmonary nodule- Primary documented in this encounter Care Teams Staff Air Defense Officer Relationship Specialty Start Date End Date Ary Ritchie MD [address] [place] [address] [email or web address] PCP - General Family Medicine 09/24/20 12/22/23 Yanet Pineda NP [address] [address] PCP - General Nurse Practitioner 12/23/23 05/09/24 Pcp, Unknown PCP - General 05/10/24 documented as of this encounter Additional Source Comments The information contained in this document represents components of the legal health record. It is not the complete legal health record.[facility]
--- OUTSIDE RECORDS SUMMARY | 2025-01-27 15:12 | XMS_ITS | Encounter Summary ---
Author Organization [facility] Address [address] [facility] [address] [place] [address] Phone Care Team Providers Care Pyridine Operator Name Role Phone Ary Ritchie MD Primary Care Provider [phone] Yanet Pineda NP Primary Care Provider [phone] Pcp, Unknown Primary Care Provider Unavailabl e Encounter Details Date Type Department Care Team (Late st Contact Info) Description 01/16/2021 Procedure Pass [facility], Ct Scan - [facility] [address] [place] [address] Social History Tobacco Use Types Packs/Day Years Used Date Smoking Tobacco: Every Day Smokeless Tobacco: Never Alcohol Use Standard Drinks/Week Comments Yes 0 (1 standard drink = 0.6 oz pur e alcohol) every 3 months Sex and Gender Information Value Date Recorded Sex Assigned at Male 06/04/2018 8:18 PM EST Legal Sex Male 6:28 PM EDT Gender Identity Male 06/04/2018 8:18 PM EST Sexual Orientation Choose not to disclose 2019 6:11 PM EST documented as of this encounter Functional Status * Calculated C-SSRS Risk Score (Lifetime/Recent) Answer Date of Assessment Author No Risk Indicated 01/16/2021 8:06 AM Gely Gomes RN * [place] Suicide Severity Rating Scale (Screener/Recent Self-Report) Question Answer Date of Assessment Author 1. Wish to be (Past 1 Month) No 01/16/2021 8:06 AM Belem Tamayo RN 2. Non-Specific Active Suicidal Thoughts (Past 1 Month) No 01/16/2021 8:06 AM EDT Belem Tom RN 6. Suicidal Behavior (Lifetime) No 01/16/2021 8:06 AM EDBelem Wang RN documented as of this encounter Plan of Treatment Not on file documented as of this encounter Visit Diagnoses Not on filedocumented in this encounter Care Teams Pyridine Operator Relationship Specialty Start Date End Date Ary Ritchie MD [address] [place] [address] [email or web address] PCP - General Family Medicine 09/24/20 12/22/23 Yanet Pineda NP [address] [address] PCP - General Nurse Practitioner 12/23/23 05/09/24 Pcp, Unknown PCP - General 05/10/24 documented as of this encounter Additional Source Comments The information contained in this document represents components of the legal health record. It is not the complete legal health record.[facility]
--- OUTSIDE RECORDS SUMMARY | 2025-01-27 15:12 | XMS_ITS | Encounter Summary ---
Author Organization [facility] Address [address] [place] [address] [place] [address] Phone Care Team Providers Care Adventure Therapist Name Role Phone Ary Ritchie MD Primary Care Provider [phone] Yanet Pineda NP Primary Care Provider Pcp, Unknown Primary Care Provider Unavailabl e Encounter Details Date Type Department Care Team (Late st Contact Info) Description 11/29/2021 Procedure Pass [facility], Ct Scan - [facility] [address] [place] [address] Social History Tobacco Use Types Packs/Day Years [...] Date of Assessment Author No Risk Indicated 11/29/2021 2:51 AM EDT Tessie Gonzales RN * [place] Suicide Severity Rating Scale (Screener/Recent Self-Report) Question Answer Date of Assessment Author 1. Wish to be (Past 1 Month) No 11/29/2021 2:51 AM EDT Cassidy Ureña RN 2. Non-Specific Active Suicidal Thoughts (Past 1 Month) No 11/29/2021 2:51 AM EDT Cassidy Ureña RN 6. Suicidal Behavior (Lifetime) No 11/29/2021 2:51 AM Cassidy Dooley RN documented as of this encounter Plan of Treatment Not on file documented as of this encounter Visit Diagnoses Not on filedocumented in this encounter Care Teams Adventure Therapist Relationship Specialty Start Date End Date Ary Ritchie MD [address] [place] [address] [email or web address] PCP - General Family Medicine 09/24/20 12/22/23 Yanet Pineda NP [address] [address] PCP - General Nurse Practitioner 12/23/23 05/09/24 Pcp, Unknown PCP - General 05/10/24 documented as of this encounter Additional Source Comments The information contained in this document represents components of the legal health record. It is not the complete legal health record.[facility]
--- OUTSIDE RECORDS SUMMARY | 2025-01-27 15:12 | XMS_ITS | Encounter Summary ---
Author Organization [facility] Address [address] [place] [address] [place] [address] Phone Care Team Providers Care Special Education Bus Driver Name Role Phone Pcp, Unknown Primary Care Provider Ary Alford MD Primary Care Provider [phone] Pcp, Unknown Primary Care Provider Ary Alford MD Primary Care Provider [phone] Yanet Pineda NP Primary Care Provider [phone] Pcp, Unknown Primary Care Provider Unavailabl e Encounter Details Date Type Department Care Team (Late st Contact Info) Description 03/17/2020 Procedure Pass [facility], Ct Scan - [address] [address] Social History Tobacco Use Types Packs/Day Years [...] on filedocumented in this encounter Care Teams Special Education Bus Driver Relationship Specialty Start Date End Date Pcp, Unknown PCP - General 03/17/20 05/12/20 Ary Ritchie MD [address] [place] [address] [email or web address] PCP - General Family Medicine 05/13/20 07/02/20 Pcp, Unknown PCP - General 07/03/20 09/23/20 Ary Ritchie MD [address] [place] [address] [email or web address] PCP - General Family Medicine 09/24/20 12/22/23 Yanet Pineda NP [address] [address] PCP - General Nurse Practitioner 12/23/23 05/09/24 Pcp, Unknown PCP - General 05/10/24 documented as of this encounter Additional Source Comments The information contained in this document represents components of the legal health record. It is not the complete legal health record.[facility]
--- OUTSIDE RECORDS SUMMARY | 2025-01-27 15:12 | XMS_ITS | Encounter Summary ---
Author Organization [facility] Address [address] [facility] [address] [place] [address] Phone Care Team Providers Care Material Attendant Name Role Phone Pcp, Unknown Primary Care Provider Unavailabl e Encounter Details Date Type Department Care Team (Late st Contact Info) Description 12/16/2024 Procedure Pass [facility], Ct Scan - [address] [address] Social History Tobacco Use Types Packs/Day Years Used Date Smoking Tobacco: Every Day Cigarettes Smokeless Tobacco: Never Alcohol Use Standard Drinks/Week Comments Yes 0 (1 standard drink = 0.6 oz pur e alcohol) rare Education Answer Date Recorded Are you interested in more education? Not on francis e 09/06/2022 Are you concerned about learning? Not on file 09/06/2022 No 09/06/2022 No 09/06/2022 Digital Access Answer Date Recorded No 10/07/2022 No 10/07/2022 Reliable internet access at home? Not on file 10/07/2022 Device with a working camera? Not on file Intimate Partner Violence Answer Date R ecorded Are you denied basic needs s uch as food, clothing, or medical care? No 12/16/2024 In the past 12 months have y ou been in a relationship with a person who hurts, threatens, or tries to control you? No 12/16/2024 Are you denied basic needs s uch as food, clothing, or medical care? No 12/16/2024 In the past 12 months have y ou been in a relationship with a person who hurts, threatens, or tries to control you? No 12/16/2024 Sex and Gender Information Value Date Recorded Sex Assigned at Male 06/04/2018 8:18 PM EST Legal Sex Male 6:28 PM EDT Gender Identity Male 06/04/2018 8:18 PM EST Sexual Orientation Choose not to disclose 2019 6:11 PM EST documented as of this encounter Functional Status * Calculated C-SSRS Risk Score (Lifetime/Recent) Answer Date of Assessment Author No Risk Indicated 12/16/2024 7:37 PM EDT Brennan Headley, SILVIANO * [place] Suicide Severity Rating Scale (Screener/Recent Self-Report) Question Answer Date of Assessment Author 1. Wish to be (Past 1 Month) No 025 7:37 PM EDT Brennan Headley, SILVIANO 2. Non-Specific Active Suici kervin Thoughts (Past 1 Month) No 12/16/2024 7:37 PM EDT Brennan Headley, SILVIANO 6. Suicidal Behavior (Lifetime) No 5 7:37 PM EDT Brennan Headley, SILVIANO documented as of this encounter Plan of Treatment Not on file documented as of this encounter Visit Diagnoses Not on filedocumented in this encounter Care Teams Material Attendant Relationship Specialty Start Date End Date Pcp, Unknown PCP - General 05/10/24 documented as of this encounter Additional Source Comments The information contained in this document represents components of the legal health record. It is not the complete legal health record.[facility]
--- OUTSIDE RECORDS SUMMARY | 2025-01-27 15:12 | XMS_ITS | Encounter Summary ---
Author Organization [facility] Address [address] [place] [address] [place] [address] Phone Care Team Providers Care Chemistry Department Chair Name Role Phone Pcp, Unknown Primary Care Provider Ary Alford MD Primary Care Provider + [phone] Pcp, Unknown Primary Care Provider Ary Alford MD Primary Care Provider [phone] Yanet Pineda NP Primary Care Provider [phone] Pcp, Unknown Primary Care Provider Unavailabl e Encounter Details Date Type Department Care Team (Late st Contact Info) Description 03/24/2020 Procedure Pass [facility], Ct Scan - [address] [address] Social History Tobacco Use Types Packs/Day Years [...] on filedocumented in this encounter Care Teams Chemistry Department Chair Relationship Specialty Start Date End Date Pcp, Unknown PCP - General 03/17/20 05/12/20 Ayr Ritchie MD [address] [place] [address] [email or web address] PCP - General Family Medicine 05/13/20 07/02/20 Pcp, Unknown PCP - General 07/03/20 09/23/20 Ary Ritchie MD 70 [place] [address] [email or web address] PCP - General Family Medicine 09/24/20 12/22/23 Yanet Pineda NP [address] [address] PCP - General Nurse Practitioner 12/23/23 05/09/24 Pcp, Unknown PCP - General 05/10/24 documented as of this encounter Additional Source Comments The information contained in this document represents components of the legal health record. It is not the complete legal health record.[facility]
--- OUTSIDE RECORDS SUMMARY | 2025-01-27 15:12 | XMS_ITS | Encounter Summary ---
Author Organization [facility] Address [address] [place] [address] [place] [address] Phone Care Team Providers Care Olericulturist Name Role Phone Ary Ritchie MD Primary Care Provider [phone] Yanet Pineda NP Primary Care Provider [phone] Pcp, Unknown Primary Care Provider Unavailabl e Encounter Details Date Type Department Care Team (Late st Contact Info) Description 11/29/2021 Procedure Pass [facility], Ct Scan - [facility] [address] [place] [address] Social History Tobacco Use Types Packs/Day Years [...] 2:51 AM EDT Tessie Gonzales RN * [place] Suicide Severity Rating Scale (Screener/Recent Self-Report) Question [...] on filedocumented in this encounter Care Teams Olericulturist Relationship Specialty Start Date End Date Ary Ritchie MD [address] [place] [address] [email or web address] PCP - General Family Medicine 09/24/20 12/22/23 Yanet Pineda NP [address] [address] PCP - General Nurse Practitioner 12/23/23 05/09/24 Pcp, Unknown PCP - General 05/10/24 documented as of this encounter Additional Source Comments The information contained in this document represents components of the legal health record. It is not the complete legal health record.[facility]
--- OUTSIDE RECORDS SUMMARY | 2025-01-27 15:12 | XMS_ITS | Encounter Summary ---
Author Organization [facility] Address [address] [place] [address] [place] [address] Phone Care Team Providers Care Paediatric Thoracic Physician Name Role Phone Ary Ritchie MD Primary Care Provider + [phone] Pcp, Unknown Primary Care Provider Unavailabl e Ary Ritchie MD Primary Care Provider + [phone] Yanet Pineda NP Primary Care Provider [phone] Pcp, Unknown Primary Care Provider Unavailabl e Encounter Details Date Type Department Care Team (Late st Contact Info) Description 05/13/2020 Procedure Pass [facility], Ct Scan - [address] [address] Social History Tobacco Use Types Packs/Day Years [...] 7:16 PM EST Radha Blum RN * [place] Suicide Severity Rating Scale (Screener/Recent Self-Report) Question Answer Date of Assessment Author 1. Wish to be (Past 1 Month) No 05/13/2020 7:16 PM Radha Harrell RN 2. Non-Specific Active Suici kervin Thoughts (Past 1 Month) No 05/13/2020 7:16 PM Obie Harrell RN 3. Active Suicidal Ideation with any Methods (Not Plan) Without Intent to Act (Past 1 Month) No 05/13/2020 12:53 AM Isac Vergara RN 6. Suicidal Behavior (Lifetime) No 7:16 PM Radha Harrell RN documented as of this encounter Plan of Treatment Not on file documented as of this encounter Visit Diagnoses Not on filedocumented in this encounter Care Teams Paediatric Thoracic Physician Relationship Specialty Start Date End Date Ary Ritchie MD [address] [place] [address] [email or web address] PCP - General Family Medicine 05/13/20 07/02/20 Pcp, Unknown PCP - General 07/03/20 09/23/20 Ary Ritchie MD [address] [place] [address] PCP - General Family Medicine 09/24/20 12/22/23 Yanet Pineda NP [address] [address] PCP - General Nurse Practitioner 12/23/23 05/09/24 Pcp, Unknown PCP - General 05/10/24 documented as of this encounter Additional Source Comments The information contained in this document represents components of the legal health record. It is not the complete legal health record.[facility]
--- OUTSIDE RECORDS SUMMARY | 2025-01-27 15:13 | XMS_ITS | Encounter Summary ---
Author Organization [facility] Address [address] [place] [address] [place] [address] Phone Care Team Providers Care Executive Chef Assistant Name Role Phone Pcp, Unknown Primary Care Provider UnavailAry Be MD Primary Care Provider [phone] Yanet Pineda NP Primary Care Provider [phone] Pcp, Unknown Primary Care Provider Skyla feilds Encounter Details Date Type Department Care Team (Late st Contact Info) Description 09/21/2020 Procedure Pass [facility], [address] [address] Social History Tobacco Use Types Packs/Day Years [...] on filedocumented in this encounter Care Teams Executive Chef Assistant Relationship Specialty Start Date End Date Pcp, Unknown PCP - General 07/03/20 09/23/20 Ary Ritchie MD [address] [place] [address] PCP - General Family Medicine 09/24/20 12/22/23 Yanet Pineda NP [address] [place] [address] PCP - General Nurse Practitioner 12/23/23 05/09/24 Pcp, Unknown PCP - General 05/10/24 documented as of this encounter Additional Source Comments The information contained in this document represents components of the legal health record. It is not the complete legal health record.[facility]
--- OUTSIDE RECORDS SUMMARY | 2025-01-27 15:13 | XMS_ITS | Encounter Summary ---
Author Organization [facility] Address [address] [facility] [address] [place] [address] Phone Care Team Providers Care Olap Developer Name Role Phone Pcp, Unknown Primary Care Provider UnavailAry Be MD Primary Care Provider [phone] Yanet Pineda NP Primary Care Provider [phone] Pcp, Unknown Primary Care Provider Unavailangeles e Encounter Details Date Type Department Care Team (Late st Contact Info) Description 09/20/2020 Procedure Pass [facility], Ct Scan - [facility] [address] [place] [address] Social History Tobacco Use Types Packs/Day Years [...] Date of Assessment Author No Risk Indicated 09/20/2020 10:02 PM EDT Valeria Alcala RN * [place] Suicide Severity Rating Scale (Screener/Recent Self-Report) Question Answer Date of Assessment Author 1. Wish to be (Past 1 Month) No 09/20/2020 10:02 PM EDT Odell Hollis RN 2. Non-Specific Active Suicidal Thoughts (Past 1 Month) No 09/20/2020 10:02 PM EDT Odell Hollis RN 6. Suicidal Behavior (Lifetime) No 09/20/2020 10:02 PM EDT Odell Hollis RN documented as of this encounter Plan of Treatment Not on file documented as of this encounter Visit Diagnoses Not on filedocumented in this encounter Care Teams Olap Developer Relationship Specialty Start Date End Date Pcp, Unknown PCP - General 07/03/20 09/23/20 Ary Ritchie MD [address] [place] [address] [email or web address] PCP - General Family Medicine 09/24/20 12/22/23 Yanet Pineda NP [address] [address] PCP - General Nurse Practitioner 12/23/23 05/09/24 Pcp, Unknown PCP - General 05/10/24 documented as of this encounter Additional Source Comments The information contained in this document represents components of the legal health record. It is not the complete legal health record.[facility]
--- OUTSIDE RECORDS SUMMARY | 2025-01-27 15:13 | XMS_ITS | Encounter Summary ---
Author Organization [facility] Address [address] [facility] [address] [place] [address] Phone Care Team Providers Care Corn Chip Maker Name Role Phone Pcp, Unknown Primary Care Provider UnavailAry Be MD Primary Care Provider [phone] Yanet Pineda NP Primary Care Provider [phone] Pcp, Unknown Primary Care Provider Unavailangeles e Encounter Details Date Type Department Care Team (Late st Contact Info) Description 09/20/2020 Procedure Pass [facility], Ct Scan - [facility] [address] [place] [address] Social History Tobacco Use Types Packs/Day Years [...] 10:02 PM EDT Valeria Alcala RN * [place] Suicide Severity Rating Scale (Screener/Recent Self-Report) Question [...] on filedocumented in this encounter Care Teams Corn Chip Maker Relationship Specialty Start Date End Date Pcp, Unknown PCP - General 07/03/20 09/23/20 Ary Ritchie MD [address] [place] [address] [email or web address] PCP - General Family Medicine 09/24/20 12/22/23 Yanet Pineda NP [address] [address] PCP - General Nurse Practitioner 12/23/23 05/09/24 Pcp, Unknown PCP - General 05/10/24 documented as of this encounter Additional Source Comments The information contained in this document represents components of the legal health record. It is not the complete legal health record.[facility]
--- OUTSIDE RECORDS SUMMARY | 2025-01-27 15:13 | XMS_ITS | Encounter Summary ---
Author Organization [facility] Address [address] [place] [address] [place] [address] Phone Care Team Providers Care Overnight Caregiver Name Role Phone Ary Ritchie MD Primary Care Provider [phone] Yanet Pineda NP Primary Care Provider [phone] Pcp, Unknown Primary Care Provider Unavailabl e Encounter Details Date Type Department Care Team (Late st Contact Info) Description 12/28/2020 Ancillary Orders Virtual Department [address] [place] [address] Ary Ritchie MD [address] [place] [address] [email or web address] Right shoulder pain, unspecified chronicity; Other instability, right shoulder Social History Tobacco Use Types Packs/Day Years [...] as of this encounter Visit Diagnoses Diagnosis Right shoulder pain, unspecified chronicity Other instability, right shoulder documented in this encounter Care Teams Overnight Caregiver Relationship Specialty Start Date End Date Ary Ritchie MD [address] [place] [address] [email or web address] PCP - General Family Medicine 09/24/20 12/22/23 Yanet Pineda NP [address] [facility] [address] [place] [address] PCP - General Nurse Practitioner 12/23/23 05/09/24 Pcp, Unknown PCP - General 05/10/24 documented as of this encounter Additional Source Comments The information contained in this document represents components of the legal health record. It is not the complete legal health record.[facility]
== END 2025-01-27 14:31 | disposition home or self-care (01) ==
LOC: HO.HOS 13:11
PROVIDERS: Visit Provider Orthopaedic Surgery
DX: Z98.890 Other specified postprocedural states (principal)
CPT/HCPCS: 99024

== ENCOUNTER 2025-01-27 14:20 | Emergency (ER) | payer MEDICARE, SELFPAY ==
--- NOTE | ~2025-01-27 | XR_ITS ---
EXAMINATION: XR CHEST 2 VIEWS HISTORY: CP, SOB COMPARISON: There are no prior studies available for comparison. FINDINGS: AP and lateral views of the chest are submitted. The lungs are hyperinflated, consistent with COPD. The lungs are clear. There is no pleural effusion, pneumothorax, or pulmonary vascular congestion. The heart is normal in size. There are suture anchors in both humeral heads. XR/XR chest 2V IMPRESSION: COPD. No acute cardiopulmonary abnormality. Electronically signed by: Xavier Fierro MD 01/27/2025 03:51 PM EDT
--- NOTE | ~2025-01-27 | XR_ITS ---
EXAMINATION: XR HAND, LEFT CLINICAL INFORMATION: abscess, r/o infection COMPARISON: None available. TECHNIQUE: PA, lateral, and oblique views of the left hand. FINDINGS: Small marginal osteophyte formation at the distal and middle phalanges of the digits. No acute cortical disruption or gross malalignment. No metallic or radiopaque foreign body. No subcutaneous emphysema. No osteolysis. XR/XR hand LT min 3V IMPRESSION: No osteomyelitis based upon x-ray. No acute fracture or dislocation. Mild degenerative changes. Electronically signed by: Wellington Carlisle MD 01/27/2025 03:53 PM EDT
[2025-01-27 14:33] VITALS: BP 166/88; PULSE 99; RESP 18; TEMP 36.9; O2SAT 99; BMI 19.8
--- NOTE | 2025-01-27 14:33 | ED_ITS ---
HPI - General Adult General Chief complaint: Animal Bite Stated complaint: spider bite fever dizzy Time Seen by Provider: 01/27/25 14:55 Source: patient Mode of arrival: wheelchair Limitations: no limitations History of Present Illness ED Provider: Marcelina Whittaker PA-C HPI narrative: Patient is a 64 year old assigned male at with a history of GERD, HLD, and HTN presenting to the emergency department today with a left hand and forearm spider bites. Patient states that a few days ago he got bit by a few brown recluse type spiders and he has had pain with swelling ever since on his left hand and left forearm. Patient denies any other complaints at this time. Related Data Previous Rx's ?Medication ?Instructions ?Recorded Walking cane #1 ea 02/05/22 amlodipine 5 mg tablet 5 mg PO DAILY #30 tabs 04/09 atorvastatin 20 mg tablet 20 mg PO DAILY #30 tabs 03/13 01/31 lisinopril 5 mg tablet 5 mg PO DAILY #30 tabs 04/09 metoprolol tartrate 25 mg tablet 25 mg PO DAILY #30 ta bs 04/09/22 omeprazole 20 mg capsule,delayed 20 mg PO DAILY #30 ca ps 04/09/22 release cephalexin 500 mg capsule 500 mg PO Q6H 7 days #28 cap s 01/27/25 doxycycline hyclate 100 mg tablet 100 mg PO BID 7 days #14 tabs 01/27/25 oxycodone-acetaminophen 5 mg-325 1 tab PO Q12H PRN louis n (scale 01/27/25 mg tablet (Percocet) score 4-6) 7 days #14 tabs Allergies Allergy/AdvReac Type Severity Reaction Status Date / Time pneumococcal vaccine Allergy Severe ANAPHYLAXIS Verified 01/27/25 14:34 (PNEUMOCOCCAL VACCINE) diphenhydramine (From Allergy Intermediate Hives Verified 01/27/25 14:34 Benadryl) Penicillins (PCN) Allergy Intermediate Hives Verified 01/27/25 14:34 Review of Systems 2 Constitutional: Constitutional: Reports as per HPI Eyes: Eyes: Reports as per HPI ENT: Reports as per HPI Cardiovascular: Cardiovascular: Reports as per HPI Respiratory: Respiratory: Reports as per HPI Gastrointestinal: Gastrointestinal: Reports as per HPI Genitourinary: Genitourinary: Reports as per HPI Musculoskeletal: Musculoskeletal: Reports as per HPI Integumentary/Breasts: Skin/Breast: Reports as per HPI Neurologic: Reports as per HPI Psychiatric: Psychiatric: Reports as per HPI Endocrine: Endocrine: Reports as per HPI Hematologic/Lymphatic: Hematologic/Lymphatic: Reports as per HPI Allergic/Immunologic: Allergic/Immunologic: Reports as per HPI [facility] Past Medical History Attestation statement: The following information was validated with the patient. Source: old records reviewed and nursing notes reviewed Medical History CVA (cerebral vascular accident) Hyperlipidemia GERD (gastroesophageal reflux disease) Kidney stones Hypertension Surgical History History of rotator cuff surgery History of kidney surgery Previous back surgery Family History Family History Mother Essential hypertension Father CAD (coronary artery disease) Brother Brain cancer Social History Social History Housing: Apartment Are you a primary continuum of care manager to a significant other at home: No Do you presently have visiting nurse or other home services: No Alcohol intake: current Alcohol intake frequency: holidays/special occasions only Comment: COUNTS CORRECT Patient Tobacco Use Status: Current everyday Tobacco user Tobacco use type: Cigarette Cigarette Packs Per Day: 0.5 Cigarettes Per Day: 10.0 Years Smoked: 48 e-Cigarette/Vaping Use: Never Used Second Hand Smoke Exposure: Yes Advance Directives: No Advance Directives Information Provided: Yes service: No Current occupational status: disabled Cognitive needs: No Hearing needs: No Vision needs: No Physical Exam ED Vital Signs: Vital Signs - 24 hr 01/27/25 14:33 Temperature 98.4 F Pulse Rate 99 Respiratory Rate 18 Blood Pressure 166/88 H Pulse Oximetry 99 Oxygen Delivery Method Room Air BMI result Body Mass Index 19.8 Const General: cooperative, no acute distress, alert and awake Nutritional Appearance: well nourished Orientation/consciousness: patient oriented x3 HENMT Head: Yes normal to inspection and Yes atraumatic Ears: hearing grossly normal bilaterally and external ears normal General nose exam: Normal external nose present, no nasal discharge noted and no epistaxis Face and sinus: Yes normal facial exam, No abrasion and No laceration Mouth: Normal oral and palatal mucosa present, no drooling and no muffled voice Eyes General: appearance normal, both eyes and all related structures Periorbital: periorbital findings normal Eyelids: Yes eyelids normal Conjunctivae: conjunctivae normal Pupils: Equal, round and reactive pupils present EOM: EOMs intact bilaterally Neck Neck: Yes normal visual inspection and Yes full ROM Resp Effort & Inspection: normal respiratory effort and able to speak in complete sentences Neuro General: patient oriented x3, moves all extremities and CN's II-XI intact bilaterally Cranial nerves: Yes Equal, round and reactive pupils present Cognition (Neuro): normal cognition Extrem Other: General: Yes full ROM and Yes capillary refill normal Psych Appearance: grossly normal Mental Status: mental status grossly normal Affect: normal affect Attitude: cooperative Thought process: Normal thought process present Thought content: Normal thought content present Insight: Good insight present (Psych) Course Course Course Narrative: This is an RME: Additional HPI, ROS, PE not included below will be deferred to primary provider. RME assessment and note performed by: Wendi Owens PA-C This is a [id number]-male who presents to the ER with a complaint of left hand pain, redness s/p spider bite. Reports that he saw the brown recluse spider bite him 4 days ago. He was at his sister's wedding and was putting chairs down in a damp cellar and he hit a nest and they attacked him, and one bit him in the left hand. Reporting increased redness, swelling. Endorsing fevers at home. While in triage when he was about to go off 2 blood work, he suddenly felt as though he was having sudden chest pain, and became very nauseous, and stated that he felt as though he was about to have a seizure, he has no history of seizure disorders. Patient immediately brought back to the main emergency department. Plan: Labs, EKG, cxr, further ER eval needed Medications Administered Discontinued Medications Generic Name Dose Route Start Last Admin Trade Name Leonides PRN Reason Stop Dose Admin Ceftriaxone Sodium 1 gm 01/27/25 15:59 01/27/25 16:23 Ceftriaxone Sodium 1 Gm Vial IVPUSH 01/27/25 16:00 1 gm ONCE ONE Administration Doxycycline Monohydrate 100 mg 01/27/25 15:59 01/27/25 16:23 Doxycycline Monohydrate 100 Mg Capsule PO 01/27/25 16:00 100 mg ONCE ONE Administration Ondansetron HCl 4 mg 01/27/25 16:26 01/27/25 16:32 Ondansetron Hcl 4 Mg/2 Ml Vial IVPUSH 01/27/25 16:27 4 mg ONCE ONE Administration Lidocaine/Epinephrine/Tetracaine 1 ml 01/27/25 15:49 01/27/25 16:23 Lidocaine/Racepinep/Tetracaine 3 Ml Gel.Pf.Toney TOPICAL 01/27/25 15:50 1 ml ONCE ONE Administration Procedures Abscess I/D Site: upper extremity Side (if applicable): left Local Anesthetic: other anesthetic (LET) Technique: incised with blade Amount of fluid expressed (mL): 6 Sent for culture/gram staining?: Yes Irrigation: No Packing used?: none Medical Decision Making Medical Decision Making MDM Narrative: Patient is a 64 year old assigned male at with a history of GERD, HLD, and HTN presenting to the emergency department today with a left hand and forearm spider bites. Patient's physical exam was as noted in the physical exam portion of this note and consistent with a left hand abscess potentially secondary to an insect vs. spider bite. Patient's blood work was CRP of 1.41 but otherwise unremarkable. Patient's EKG was unremarkable. Patient's left hand and chest x-rays showed no acute process. I explained my physical exam findings as well as all test results to the patient. I answered all questions asked by the patient. Patient's left hand abscess was numbed with LET and incised then drained, without incident. I sent a sample down for a routine culture. Incision and drainage went without incident. Patient's left hand PMS was intact prior to and after procedure. Patient was given a dose of IV antibiotics while in the department. I stressed the importance of the patient taking his medication as directed (either prescribed or as the over the counter packaging recommends). I stressed the importance of the patient following up with his primary care provider. I stressed the importance of the patient returning to the emergency department immediately if his symptoms were to worsen or if he were to develop any dizziness, shortness of breath, difficulty breathing, chest pain, blurry vision, loss of vision, nausea, vomiting, abdominal pain, fever, chills, back pain, or any other complaints. Patient verbalized agreement and understanding with this treatment plan and discharge. Differential Diagnosis Differential Diagnoses: The differential diagnosis associated with the presentation includes Left hand abscess Insect bite Admission/Observation Consideration of admission/observation: Escalation of care including admission/observation considered Patient would have been admitted to the hospital had his work up had any findings where hospital admission was appropriate and his clinical presentation warranted hospital admission. Lab Data [facility] Lab Attestation statement: I reviewed the patient's lab results. My interpretation of these results are in the [facility] Rationale portion of this note. 01/27/25 15:00 01/27/25 15:00 Labs: Lab Results 01/27/25 01/27/25 Range/Units 15:00 15:01 WBC 7.0 (4.8-10.8) X10*3/uL RBC 4.82 (4.60-5.80) X10*6/uL Hgb 14.9 (14.0-18.0) g/dl Hct 42.0 (42.0-52.0) % MCV 87.1 (80.0-98.0) fL MCH 30.9 (27.0-33.0) pg MCHC 35.5 (31.0-36.0) g/dl RDW 12.3 (11.0-16.0) % Plt Count 236 (160-400) X10*3/uL MPV 8.7 L (9.4-12.4) fL Immature Gran % (Auto) 0.3 (0.0-0.4) % Neut % (Auto) 69.8 (45-73) % Lymph % (Auto) 17.9 L (20-40) % [place] % (Auto) 7.3 (2-11) % Eos % (Auto) 4.3 H (0-4) % Baso % (Auto) 0.4 (0-2) % Lymph # (Auto) 1.3 (1.2-4.9) X10*3/uL [place] # (Auto) 0.5 (0.1-1.2) X10*3/uL Eos # (Auto) 0.3 (0.0-0.4) X10*3/uL Baso # (Auto) 0.0 (0.0-0.2) X10*3/uL Abs Immat Gran (auto) 0.02 (0.00-0.03) X10*3/uL Absolute Neuts (auto) 4.9 (2.0-8.3) x10*3/uL Absolute Nucleated RBC 0.000 (0.0-0.012) X10*3/uL Nucleated RBC % (auto) 0.0 (0.0-0.2) /100WBC ESR 12 (0-15) MM/HR Sodium 139 (135-145) mmol/L Potassium 4.0 (3.3-5.1) mmol/L Chloride 106 (96-108) mmol/L Carbon Dioxide 26 (22-29) mmol/L Anion Gap 11 L (12-20) BUN 13 (9-16) mg/dL Creatinine 1.04 (0.5-1.4) mg/dL Estim Creat Clear Calc 67.2 Estimated GFR > 60 Random Glucose 93 (60-115) mg/dL Lactic Acid 1.4 (0.5-2.0) mmol/L Calcium 9.3 (8.4-10.2) mg/dL Magnesium 2.2 (1.6-2.6) mg/dL Total Bilirubin 0.3 (0.0-1.0) mg/dL Direct Bilirubin 0.1 (0.0-0.5) mg/dL AST 24 (5-37) U/L ALT 17 (0-40) U/L Alkaline Phosphatase 99 (39-117) U/L Troponin I High Sens < 2.7 (<3.5-35.0) ng/L C-Reactive Protein 1.41 H (< or = 0.50) mg/dL Total Protein 7.0 (6.5-8.0) g/dL Albumin 4.3 (3.5-5.0) g/dL Independent Interpretation I performed an independent interpretation of an: EKG and Plain X-Ray Interpretation: My interpretation is in agreement with the radiologist's impression of these imaging studies. L Reason for Exam: CP, SOB EXAMINATION: XR CHEST 2 VIEWS HISTORY: CP, SOB COMPARISON: There are no prior studies available for comparison. FINDINGS: AP and lateral views of the chest are submitted. The lungs are hyperinflated, consistent with COPD. The lungs are clear. There is no pleural effusion, pneumothorax, or pulmonary vascular congestion. The heart is normal in size. There are suture anchors in both humeral heads. XR/XR chest 2V IMPRESSION: COPD. No acute cardiopulmonary abnormality. Electronically signed by: Xavier Fierro MD 01/27/2025 03:51 PM EDT Dictated By: Xavier Fierro MD Signed By: Electronically signed by Xavier Fierro MD 01/27/25 1551 Reason for Exam: abscess, r/o infection EXAMINATION: XR HAND, LEFT CLINICAL INFORMATION: abscess, r/o infection COMPARISON: None available. TECHNIQUE: PA, lateral, and oblique views of the left hand. FINDINGS: Small marginal osteophyte formation at the distal and middle phalanges of the digits. No acute cortical disruption or gross malalignment. No metallic or radiopaque foreign body. No subcutaneous emphysema. No osteolysis. XR/XR hand LT min 3V IMPRESSION: No osteomyelitis based upon x-ray. No acute fracture or dislocation. Mild degenerative changes. Electronically signed by: Wellington Carlisle MD 01/27/2025 03:53 PM EDT Dictated By: Wellington Barnard MD Signed By: Electronically signed by Wellington Headley MD 01/27/25 1553 I independently interpreted this EKG and am in agreement with the below findings: Vent. Rate: 96 BPM Atrial Rate: 96 BPM P-R Int: 154 ms QRS Dur: 110 ms QT Int: 372 ms P-R-T Axes: 75 84 77 degrees QTcB Int: 469 ms Normal sinus rhythm Normal ECG When compared with ECG of 21-Dec-2024 09:28, No significant change was found DD/ 1448 Radiology Impression Discussion of test interpretation with radiology: I have reviewed the radiologist's reading. Prescription Management I considered prescription management with: Antibiotic (patient prescribed antibiotics) Discharge Plan Discharge Clinical Impression: Abscess of hand Patient Disposition: Home, Self-Care Instructions: Abscess (ED), Abscess Incision and Drainage (DC) Additional Instructions: Take your antibiotic as prescribed. Keep your left hand wound DRY and CLEAN. IF you are prescribed home medications and/or you are taking over the counter medications at home - it is very important you continue to do so as prescribed / directed unless told otherwise. Follow up with a primary care provider. Return to the emergency department immediately if your symptoms worsen or if you develop any numbness, tingling, dizziness, shortness of breath, difficulty breathing, chest pain, blurry vision, loss of vision, nausea, vomiting, abdominal pain, fever, chills, back pain, or any other complaints. L If you do not have a primary care provider - call any of the below numbers to establish and follow up with a primary care provider. [facility] Primary Care ([place]) [phone] [place] [address], [address] [facility] Primary Care ([address] [place]) [phone] [place] [address], [address] [facility], [address] [facility] Primary Care ([address] [place]) [phone] [place] [address], [address] [facility], [address] [facility] Primary Care ([place]) [phone] [place] [address] [address] [facility], [address] [facility] Family Medicine [phone] [place] [address], [address] Please see the information below about our Patient Portal. If you are not yet enrolled in the [facility] Patient Portal, you will receive an enrollment email invitation following your visit to any [facility] care setting. You may also self-enroll in the Patient Portal by visiting our website: [email or web address] The following information is required to access the Patient Portal: - Your [facility] Medical Record Number - Your personal home email address (must match what is in your electronic medical record, Registration staff can assist with this) - Name - Date of Capabilities of the Patient Portal: - Message some providers - View upcoming appointments - Access your health summary, medical history, and visit history - View current conditions and allergies - View procedure and lab results - View your medications, including guidelines, side effects, and precautions - Complete pre-appointment questionnaires requested by your provider - Ready summary reports of your office visits and procedures To access the Patient Portal Mobile Toney, follow these directions: - Search [email or web address] in the Toney Store or MyCube Store - Download the Toney - Search for [facility] - Enter your login/password Prescriptions: New cephalexin 500 mg capsule 500 mg PO Q6H 7 Days Qty: 28 0RF doxycycline hyclate 100 mg tablet 100 mg PO BID 7 Days Qty: 14 0RF No Action oxycodone-acetaminophen [Percocet] 5-325 mg tablet 1 tab PO Q12H PRN (Reason: pain (scale score 4-6)) 7 Days Qty: 14 0RF Rx Instructions: Partial Fill upon patient request. amlodipine 5 mg tablet 5 mg PO DAILY Qty: 30 2RF atorvastatin 20 mg tablet 20 mg PO DAILY Qty: 30 2RF lisinopril 5 mg tablet 5 mg PO DAILY Qty: 30 2RF metoprolol tartrate 25 mg tablet 25 mg PO DAILY Qty: 30 2RF omeprazole 20 mg capsule,delayed release(DR/EC) 20 mg PO DAILY Qty: 30 2RF (DME) Walking cane See Rx Instructions .Route .MEDSUPPLY Qty: 1 0RF Rx Instructions: As directed Print Language: Pakistani
--- NOTE | 2025-01-27 14:38 | ECG_ITS ---
Test Reason : CP Blood Pressure : */* mmHG Vent. Rate : 96 BPM Atrial Rate : 96 BPM P-R Int : 154 ms QRS Dur : 110 ms QT Int : 372 ms P-R-T Axes : 75 84 77 degrees QTcB Int : 469 ms Normal sinus rhythm Normal ECG When compared with ECG of 21-Dec-2024 09:28, No significant change was found Referred By: Wendi Owens Electronically Signed By: ABI PEREZ
[2025-01-27 15:15] LABS: MANUAL DIFF FLAG NO
[2025-01-27 15:17] LABS: Hematocrit 42.0 % (42.0-52.0); Hemoglobin 14.9 g/dl (14.0-18.0); Imm Gran Abs Auto 0.02 X10*3/uL (0.00-0.03); Imm Gran Pct Auto 0.3 % (0.0-0.4); Lymphocytes Absolute Auto 1.3 X10*3/uL (1.2-4.9); Mean Corpuscular HGB Conc 35.5 g/dl (31.0-36.0); Mean Corpuscular Hemoglobin 30.9 pg (27.0-33.0); Mean Corpuscular Volume 87.1 fL (80.0-98.0); NRBC Abs Auto 0.000 X10*3/uL (0.0-0.012); NRBC Pct Auto 0.0 /100WBC (0.0-0.2); Platelet Count 236 X10*3/uL (160-400); Red Blood Count 4.82 X10*6/uL (4.60-5.80); White Blood Count 7.0 X10*3/uL (4.8-10.8)
[2025-01-27 15:39] LABS: Alanine Aminotransferase 17 U/L (0-40); Albumin Level 4.3 g/dL (3.5-5.0); Alkaline Phosphatase 99 U/L (39-117); Anion Gap 11 (12-20); Aspartate Amino Transferase 24 U/L (5-37); Blood Urea Nitrogen 13 mg/dL (9-16); Calcium 9.3 mg/dL (8.4-10.2); Carbon Dioxide 26 mmol/L (22-29); Chloride 106 mmol/L (96-108); Creatinine Clr Calc Pharmacy 67.2; Estimated Glomerular Filt Rate > 60; Magnesium 2.2 mg/dL (1.6-2.6); Potassium 4.0 mmol/L (3.3-5.1); Sodium 139 mmol/L (135-145); Total Protein 7.0 g/dL (6.5-8.0)
[2025-01-27 15:49] LABS: Troponin-I High Sensitivity < 2.7 ng/L (<3.5-35.0)
--- NOTE | 2025-01-27 16:07 | MHC.EDTECH ---
Lab test CK Total canceled by provider Chitra.
[2025-01-27] MEDS: Lidocaine/Racepinep/Tetracaine 3 ML GEL.PF.APP 1 ML TOPICAL (16:23)
[2025-01-27 17:41] VITALS: BP 143/101; PULSE 87; RESP 12; TEMP 36.7; O2SAT 96
== END 2025-01-27 17:44 | disposition home or self-care (01) ==
PROVIDERS: Physician Assistant Medical; Emergency Provider Emergency Medicine
DX: L02.511 Cutaneous abscess of right hand (principal); R42 Dizziness and giddiness; R07.89 Other chest pain; M79.642 Pain in left hand; I10 Essential (primary) hypertension; Z79.899 Other long term (current) drug therapy; Z86.73 Personal history of transient ischemic attack (TIA), and cerebral infarction without residual deficits; Z87.19 Personal history of other diseases of the digestive system
CPT/HCPCS: 10060; 36415; 71046; 73130; 80048; 80076; 83605; 83735; 84484; 85025; 85652; 86140; 87040; 87070; 87077; 87186; 87205; 93005; 96374; 96375; 99212; 99283; 99284; J0696; J2405

== ENCOUNTER → 2025-01-27 14:38 | Outpatient (BNV) | payer MEDICARE, SELFPAY | PROVIDERS: Visit Provider Radiology Diagnostic Radiology | DX: J44.9 Chronic obstructive pulmonary disease, unspecified (principal); M25.742 Osteophyte, left hand | CPT/HCPCS: 71046; 73130 ==

== ENCOUNTER → 2025-01-27 14:38 | Outpatient (BNV) | payer MEDICARE, SELFPAY | PROVIDERS: Emergency Provider Emergency Medicine; Visit Provider Internal Medicine | DX: R07.9 Chest pain, unspecified (principal) | CPT/HCPCS: 93010 ==

== ENCOUNTER 2025-03-10 12:41 | Outpatient (AMB) | payer MEDICARE, SELFPAY ==
--- OUTSIDE RECORDS SUMMARY | 2025-01-22 17:00 | XMS_ITS ---
Author Organization [facility] Address [address] [place] [id number] Care Team Providers Care Macadam Raker Name Role Phone Aris Benoit Primary Care Provider [phone] Migration, Provider Unavailable Unavailable Allergies Allergen (clinical drug ingredient) Drug/Non Drug Allergy documented on EMR Reaction Allergy Type Onset Date Status sulfamethoxazole / trimethoprim Bactrim hives Drug Allergy [facility] Encounter Medications Medication SIG (Take, Route, Frequency, Duration) Notes Start Date End Date Status amLODIPine Besylate 5 MG 1 tab(s) orally once a day for 30 day(s) 07/03/2021 Active Sertraline HCl 50 MG 1 tab(s) orally once a day for 30 day(s) Active Zolpidem Tartrate 10 MG 1 tab(s) orally hs prn (not to exceed 20 pills/month) Active Atorvastatin Calcium 80 MG 1 tab(s) orally qhs for 90 day(s) Active Metoprolol Tartrate 25 MG 0.5 tab orally 2 times a day Active Acetaminophen 500 MG 2 tab(s) orally every 8 hours for 30 days Active Centrum Silver 50+Men OTC *Pleas e review and pick correct strength-formulatio n from [facility] options. If intended option is not shown, discontinue and re-order from Quick Search* Active QUEtiapine Fumarate 25 MG 1 tab(s) orally qhs for nightmares / insomnia for 28 day(s) Active Docusate Sodium 100 MG 1 cap(s) orally 2 times a day PRN Active Aspirin 81 MG 1 tab(s) orally once a day for 90 day(s) Active Omeprazole 20 MG 1 cap(s) orally once a day for 30 days Active Lisinopril 10 MG 1 tab(s) orally once a day for 30 days Active Ketorolac Tromethamine 10 MG 1 tab(s) orally 3 times a day - first dose 2 in AM with food for 4 day(s) 07/03/2021 Active Catapres 0.1 MG 1 TAB(S) ORALLY 2 TIMES A DAY for 30 DAY(S) *Please review and pick correct strength-formulatio n from [facility] options. If intended option is not shown, discontinue and re-order from Quick Search* 07/03/2021 Active Encounters Encounter Location Date Provider Diagnosis [address] [id number] 01/22/2025 Provider Migration Essential (primary) hypertension I10 and Pain in right shoulder M25.511 Assessments Encounter Date Diagnosis (ICD Code) Assessment Notes Treatment Notes Treatment Clinical Notes Section Notes 01/22/2025 Essential (primary) hypertension (ICD-10 - I10) 01/22/2025 Pain in right shoulder (ICD-10 - M25.511) Plan Of Treatment Medication Medication Name Sig Start Date Stop Date Notes amLODIPine Besylate 5 MG 1 tab(s) orally once a day for 30 day(s) 07/03/2021 Acetaminophen 500 MG 2 tab(s) orally every 8 hours for 30 days QUEtiapine Fumarate 25 MG 1 tab(s) orally qhs for nightmares / insomnia for 28 day(s) Omeprazole 20 MG 1 cap(s) orally once a day for 30 days Lisinopril 10 MG 1 tab(s) orally once a day for 30 days Ketorolac Tromethamine 10 MG 1 tab(s) orally 3 times a day - first dose 07/04 in AM with food for 4 day(s) 07/03/2021 Catapres 0.1 MG 1 TAB(S) ORALLY 2 TIMES A DAY for 30 DAY(S) 07/03/2021 *Please review and pick correct strength-formulation from [facility] options. If intended option is not shown, discontinue and re-order from Quick Search* Progress Notes * Isaias VACA CDOB: (64 yo M)Acc No.[id number]:01/22/2025 Patient: Isaias HANSON Provider: :1960 A ge:64 Y S ex:Male Date:01/22/2025 Address:[address] [place] [address] [place], [phone] Pcp:Aris Benoit Subjective: * Chief Complaints: * 1 . [facility] To [facility] Conversion Encounter. * Medical History: * Medications: T aking Aspirin 81 MG Tablet Delayed Release 1 tab(s) orally once a day , Taking Docusate Sodium 100 MG Capsule 1 cap(s) orally 2 times a day PRN , Taking Centrum Silver 50+Men , Notes to Pharmacist: OTC *Please review and pick correct strength-formulation from [facility] options. If intended option is not shown, discontinue and re-order from Quick Search*, Taking Metoprolol Tartrate 25 MG Tablet 0.5 tab orally 2 times a day , Taking Atorvastatin Calcium 80 MG Tablet 1 tab(s) orally qhs , Taking Zolpidem Tartrate 10 MG Tablet 1 tab(s) orally hs prn (not to exceed 20 pills/month) , Taking Sertraline HCl 50 MG Tablet 1 tab(s) orally once a day * Allergies: B actrim: hives. Objective: * Vitals: Assessment: * Assessment: 1. E ssential (primary) hypertension - I10 2 . P ain in right shoulder - M25.511 Plan: * Treatment: 2. P ain in right shoulder Start Ketorolac Tromethamine Tablet, 10 MG, 1 tab(s), orally, 3 times a day - first dose 07/04 in AM with food, 4 day(s), 12, Refills 0. 3. O thers Refill Omeprazole Capsule Delayed Release, 20 MG, 1 cap(s), orally, once a day, 30 days, 30, Refills 3; S tart QUEtiapine Fumarate Tablet, 25 MG, 1 tab(s), orally, qhs for nightmares / insomnia, 28 day(s), 28, Refills 6; S tart Acetaminophen Tablet, 500 MG, 2 tab(s), orally, every 8 hours, 30 days, 180, Refills 3. * Images: Billing Information: * Visit Code: * Procedure Codes: * Electronic signature of Prov ider Migration on 03/10/2025 at 03:32 PM EDT Sign off status: Pending * Provider: Date: 0 01/22/2025 Generated for Anshul manuel/Kelly/Jonitting on: 1 03:32 PM EDT
--- OUTSIDE RECORDS SUMMARY | 2025-03-07 11:15 | XMS_ITS | Encounter Summary ---
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 Name Role Phone Pcp, Unknown Primary Care Provider Unavailabl e Reason for Visit * Auth/Cert (Routine) Specialty Diagnoses / Procedures Referred By Jaguar wellington Referred To Contact Diagnoses RIGHT STONE Procedures MN CYSTO/URETERO W/LITHOTRIPSY &INDWELL STENT INSRT LASER LITHOTRIPSY CYSTOSCOPY URETEROSCOPY RETROGRADE STENT CHANGE-UMS LASER Referral ID Status Reason Start Date Expiration Date Visits Re quested Visits Authorized [id number] 1 1 Encounter Details Date Type Department Care Team (Latest Contact Info) Description 03/07/2025 11:15 AM EDT - 03/07/2025 6:39 PM EDT Hospital Encounter OR Admitting Dept - Virtual Department [address] [place] [id number] Carlos Knox MD [address] [place] [address], [address] [phone] [email or web address] Discharge Disposition: Home or Self Care Social [...] got money to buy more. Never True 02/27/2025 Within the past 6 months the food we bought just didn't last and we didn't have enough money to get more. Never True Residential Stability Answer Date Recor ded What is your housing situation today? I have shraddha quintanilla 02/27/2025 How many times have you move d in the past 12 months? Zero (I did not move) 02/27/2025 Paying for Meds Answer Date Recorded Do you have trouble paying for medicines? No 02/27/2025 Paying Utility Bills Answer Date Record ed Do you have trouble paying your heating or elect ricity bill? No 02/27/2025 Transportation Answer Date Recorded Has the lack of transportati on kept you from medical appointments or from getting medications? No 02/27/2025 Digital Access Answer Date Recorded No 02/27/2025 Yes 02/27/2025 Do you have reliable internet access at home? Ye s 02/27/2025 Do you have a device (e.g., phone, tablet, computer) with a working camera? Yes 02/27/2025 Intimate Partner Violence Answer Date R ecorded Are you denied basic needs s uch as food, clothing, or medical care? No 03/08/2025 In the past 12 months have y ou been in a relationship with a person who hurts, threatens, or tries to control you? No 03/08/2025 Are you denied basic needs s uch as food, clothing, or medical care? No 03/08/2025 In the past 12 months have y ou been in a relationship with a person who hurts, threatens, or tries to control you? No 03/08/2025 Sex and Gender Information Value Date Recorded Sex Assigned at Male 06/04/2018 8:18 PM EST Legal Sex Male 6:28 PM EDT Gender Identity Male 06/04/2018 8:18 PM EST Sexual Orientation Choose not to disclose 2019 6:11 PM EST documented as of this encounter Last Filed Vital Signs Vital Sign Reading Time Taken Comments Blood Pressure 124/67 03/07/2025 6:15 PM EDT Pulse 77 03/07/2025 3:37 PM EDT Temperature 36.4 C (97.5 F) 03/07/2025 6:15 PM EDT Respiratory Rate 18 03/07/2025 3:37 PM EDT Oxygen Saturation 97% 03/07/2025 6:15 PM EDT Inhaled Oxygen Concentration - - Weight 72.6 kg (160 lb) 03/07/2025 11:25 AM EDT Height 180.3 cm (5' 11 ) 03/07/2025 11:25 AM EDT Body Mass Index 22.32 03/07/2025 11:25 AM EDT documented in this encounter Discharge Instructions * Discharge Instructions* Jeana Beatty, SILVIANO - 03/07/2025 4:15 PM EDT AFTER ANESTHESIA It is best to have someone stay home with you for your own safety. Do not drink alcoholic beveragesfor 24 hours after surgery, or while taking opioid/narcotic pain medication. You may be dizzy and unsteady on your feet. Be careful on stairs. Do not smoke. Do not do anything that requires a clear head or steady hands, such as driving, for 24 hours. After anesthesia you may have some muscle soreness for 24-48 hours. If it lasts longer that this, call your doctor. If a breathing tube was used during surgery, you may have a slight sore throat. Youcan gargle with cold water or use sore throat lozenges. Nausea and Vomiting After Surgery After you've had surgery, you may feel sick to your stomach (nauseated) or you may vomit. When you are nauseated, you may feel weak, sweaty and/or notice a lot of saliva in your mouth. Nausea often leads to vomiting. Most of the time you do not need to worry about nausea and vomiting. Anesthesia, pain and narcotic/opioid pain medicine can make you feel sick to your stomach. Whatever the cause, there are some things you can do at home to prevent nausea and feel better. If you are feeling sick to your stomach and/or vomiting, you can care for yourself at home by: To prevent dehydration, drink fluids. Choose water and other clear liquids until you feel less nauseated. Do not drink alcoholic beverages. If you have kidney, heart, or liver disease and have to limit fluids, talk with your doctor before you increase the amount of fluids you drink. When you are able to eat, try clear soups, mild foods, and liquids until all symptoms are improve. Good choices include dry toast, crackers, cooked cereal, and gelatin dessert, such as Jell-O. Do not smoke. Smoking and being around smoke can make nausea worse. Rest. Be safe with medications. Read and follow all instructions on the label. Ask your doctor if you cantake an over-the counter medicine for pain (less likely to cause nausea and vomiting.). Take your pain medicine with food. Call your doctor or seek immediate medical care if symptoms are severe and/or persistent. Edited 10/2022 RT documented in this encounter Medications at Time of Discharge aspirin 81 MG EC tablet Take 81 mg by mouth daily. atorvastatin (LIPITOR) 10 MG tablet Take by mouth daily. hydrOXYzine (VISTARIL) 25 MG capsule Take 25 mg by mouth 3 (three) times a day as needed for itching or anxiety. lisinopril (PRINIVIL,ZESTRI L) 10 MG tablet Take 1 tablet (10 mg total) by mouth daily. 30 tablet 05/13/2020 METOPROLOL SUCCINATE ORAL Take 25 mg by mouth daily. nicotine (NICODERM CQ) 7 mg/[address] 1 patch onto the skin daily. 30 patch 03/01/2025 OMEPRAZOLE, BULK, MISC by Miscellaneous route. tamsulosin (FLOMAX) 0.4 mg Cap Take 1 capsule (0.4 mg total) by mouth nightly at bedtime for 7 days. 7 capsule 02/23/2025 levoFLOXacin (LEVAQUIN) 500 MG tablet Take 1 tablet (500 mg total) by mouth daily for 5 doses. 5 tablet 02/24/2025 5 mupirocin (BACTROBAN) 2 % ointment Apply topically 3 (three) times a day for 19 doses. 22 g 03/01/2025 5 oxyBUTYnin (DITROPAN-XL) 5 MG 24 hr tablet Take 1 tablet (5 mg total) by mouth daily for 7 days. 7 tablet 02/23/2025 5 oxyCODONE 5 MG immediate release tablet Take 1 tablet (5 mg total) by mouth every 6 (six) hours as needed for pain (specific location in comments). Partial fill ok 10 tablet 02/28/2025 documented as of this encounter H&P Notes * Carlos Knox MD - 03/07/2025 1:50 PM EDT Urology update H&P 03/07/2025 1:50 PM Patient: Isaias Miller : 1960 PCP: Pcp, Unknown CHIEF COMPLAINT: right ureteral stone (and renal stone), infection, s/p right stent HISTORY OF PRESENT ILLNESS: Isaias Miller is a 64 y.o. male with right ureteral stone (and renal stone), infection, s/p right stent. Completed Levaquin yesterday. No fever. Stent related pain subsided since he reduce fluid intake to more normal amount and voiding often in daytime to minimize stent irritation. No fever. See Urology H&P for details. MEDICAL & SURGICAL HX: Past Medical History: Diagnosis Date Cerebrovascular accident (CVA) 2019 no residual Chronic pain Coronary artery disease CO (myocardial infarction) Renal insufficiency 2019 kidney stones Smoker Patient Active Problem List Diagnosis Episode of shaking Tobacco abuse Pulmonary nodule less than 6 mm in diameter with low risk for malignant neoplasm Shoulder pain Nephrolithiasis CAD (coronary artery disease) HTN (hypertension) CKD (chronic kidney disease) Abscess Acute unilateral obstructive uropathy Right ureteral stone Hydronephrosis, right Pyelonephritis of right kidney Renal stone Coronary atherosclerosis due to lipid rich plaque Generalized anxiety disorder Posttraumatic stress disorder Hyperlipidemia Major depression with psychotic features Manic bipolar I disorder Seizure Past Surgical History: Procedure Laterality Date BACK SURGERY laminectomy CYSTOSCOPY RETROGRADE PLACEMENT STENT-possible ussr ussl per WT Right 02/22/2025 Performed by Carlos Knox MD at [facility] OR CURRENT MEDICATIONS: Scheduled Meds: Continuous Infusions: PRN Meds: ALLERGY Allergies Allergen Reactions Cephalexin Hives Pneumococcal 23-Tatiana Ps Vaccine Hives Benadryl [Diphenhydramine Hcl] Rash Darvocet A500 [Propoxyphene N-Acetaminophen] Unknown Penicillins Unknown Sulfamethoxazole Unknown Sulfamethoxazole-Trimethoprim Hives and Rash FAMILY HX: History reviewed. No pertinent family history. SOCIAL HX: Social History Socioeconomic History Marital status: Spouse name: Not on file Number of children: Not on file Years of education: Not on file Highest education level: Not on file Occupational History Not on file Tobacco Use Smoking status: Every Day Current packs/day: 1.00 Types: Cigarettes Smokeless tobacco: Never Vaping Use Vaping status: never used Substance and Sexual Activity Alcohol use: Yes Comment: rare Drug use: No Sexual activity: Not on file Other Topics Concern Not on file Social History Narrative Healthcare proxy is his daughter Amrita Krueger [employer] Residential Stability: Low Risk (02/27/2025) Residential Stability Family situation today data: I have housing Number of times moved in last year: Zero (I did not move) REVIEW OF SYSTEMS: Constitutional: Patient denies fever, chills. Eyes: Patient denies blurred vision. Ears, Nose, Mouth, Throat: Patient denies running nose. Cardiovascular: Patient denies chest pain, swelling of legs. Pulmonary: Patient denies cough, wheezing. Gastrointestinal: Patient denies constipation, diarrhea. Neurological: Patient denies headaches, dizziness. Immunologic: Patient denies persistent infections. Skin: Patient denies rashes. The remainder of the review of systems is noncontributory PRIOR TO ADMISSION MEDICATIONS: Prior to Admission medications Medication Sig atorvastatin (LIPITOR) 10 MG tablet Daily hydrOXYzine (VISTARIL) 25 MG capsule 25 mg, 3 times daily PRN levoFLOXacin (LEVAQUIN) 500 MG tablet 500 mg, Oral, Daily lisinopril (PRINIVIL,ZESTRIL) 10 MG tablet 10 mg, Oral, Daily METOPROLOL SUCCINATE ORAL 25 mg, Daily oxyBUTYnin (DITROPAN-XL) 5 MG 24 hr tablet 5 mg, Oral, Daily oxyCODONE 5 MG immediate release tablet 5 mg, Oral, Every 6 hours PRN, Partial fill ok tamsulosin (FLOMAX) 0.4 mg Cap 0.4 mg, Oral, Nightly aspirin 81 MG EC tablet 81 mg, Daily ibuprofen (ADVIL,MOTRIN) 600 MG tablet 600 mg, Oral, Every 8 hours mupirocin (BACTROBAN) 2 % ointment Topical, 3 times daily Patient not taking: Reported on 03/07/2025 nicotine (NICODERM CQ) 7 mg/24 hr 1 patch, Transdermal, Daily Patient not taking: Reported on 03/07/2025 OMEPRAZOLE, BULK, MISC by Miscellaneous route. Patient not taking: Reported on 03/07/2025 PHYSICAL EXAMINATION: BP 132/89 Temp 35.9 ??C (96.6 ??F) (Temporal) Ht 180.3 cm (5' 11 ) Wt 72.6 kg (160 lb) DtC685% BMI 22.32 kg/m?? [96 %] 96 % (03/07 1157) Gen: Alert, pleasant and cooperative, no acute distress. HEENT: Atraumatic, normocephalic. Neck supple and symmetrical. Skin: Ute, warm, dry. No visible rash CV: RRR Lungs: nonlabor, CTA Ext: No gross deformities. Moving all extremities comfortably and bilaterally. Neuro/Psych: Alert and oriented x 3. Normal speech and language. PERTINENT TESTS: Recent CBC, BMP Radiology: Images reviewed. CT Abdomen/Pelvis Result Date: 02/27/2025 CT ABDOMEN/PELVIS WITHOUT CONTRAST Referring clinician's provided indication for this examination in Epic: * Abdominal pain, acute, nonlocalized; * Flank pain, kidney stone suspected TECHNIQUE: Multidetector-row CT of the abdomen and pelvis was performed without administration of intravenous contrast using tailored dose modulation techniques. Images were reconstructed in the axial, coronal, and sa gittal planes. COMPARISON: None FINDINGS: Lower Chest: No consolidation or pleural effusions. Liver: 3 mm hypodense lesion in segment 6 (3:48), too small to fully characterize but likely a cyst. Biliary: Noninflamed gallbladder. No biliary ductal dilatation. Spleen: No splenomegaly or focal lesions. Pancreas: Normal contour. No ductal dilatation. Adrenal Glands: No nodules. Kidneys/Ureters: Interval placement of a double-J right ureteral stent with the proximal portion in the upper pole and thedistal end in the bladder. 7 mm stone in the proximal ureter (6:372) with no hydronephrosis. Mild right perinephric and periureteral stranding. Bowel: No bowel wall thickening or dilatation. Normal appendix. Peritoneum/Retroperitoneum: No pneumoperitoneum or free fluid. Lymph Nodes: No lymphadenopathy. Pelvic Organs/Bladder: Prostatomegaly measuring 5.1 cm. Vessels: No abdominal aortic aneurysm. Bones/Soft Tissues: Status post posterior fusion of L3-L4. Mild multilevel degenerative changes throughout the visualized portions the thoracolumbar spine. No destructive osseous lesions.. Double-J right ureteral stent with persistent 7 mm proximal right ureteral stone. No hydronephrosis. Fluoroscopy Result Date: 02/22/2025 Fluoroscopy was provided during this procedure. CT Abdomen/Pelvis Result Date: 02/21/2025 CT ABDOMEN/PELVIS WITH CONTRAST Referring clinician's provided indication for this examination in Epic: * RLQ abdominal pain, appendicitis suspected (Age >= 14y) TECHNIQUE: Multidetector-row CT ofthe abdomen and pelvis was performed after administration of intravenous contrast using tailored dose modulation techniques. Images were reconstructed in the axial, coronal, and sagittal planes. COMPARISON: CT ABDOMEN/PELVIS WITH CONTRAST FINDINGS: Lower Chest: No consolidation or pleural effusions. Unchanged 7 mm subpleural nodule in the left lung bases unchanged since 2019, benign. Liver: No discrete mass. Tiny hypodensity in the left hepatic lobe is too small to characterize. Biliary: Normal gallbladder. No biliary ductal dilatation. Spleen: No splenomegaly or focal lesions. Pancreas: No masses or ductal dilatation. Adrenal Glands: No nodules. Kidneys/Ureters: Proximal right ureteral calculus measuring 8 mm causing moderate collecting system dilatation, mild perinephric fatstranding, and urothelial thickening. The right nephrogram is delayed indicating physiologically significant obstruction. Nonobstructing calculus measuring 4 mm in the right lower pole. 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 The left kidney is normal in appearance. Bowel: No bowel wall thickening or dilatation. Normal appendix. Col onic diverticulosis. Peritoneum/Retroperitoneum: No pneumoperitoneum or free fluid. Lymph Nodes: Nolymphadenopathy. Pelvic Organs/Bladder: Enlarged prostate gland. Circumferential bladder wall thickening consistent with trabeculations from chronic bladder outlet obstruction. Incidental note made of a tiny bladder diverticulum at the 9:00 position. Vessels: No abdominal aortic aneurysm. The majormesenteric branches are patent. Atherosclerosis. Bones/Soft Tissues: Left laminectomies at L3 and L4, with right pedicle screws at L3 and L4. No acute displaced fracture or destructive osseous lesion. Degenerative changes in the spine 1. Proximal right ureteral calculus causing moderate collecting system dilatation and evidence of obstructive nephropathy. 2. Enlarged prostate gland with bladder trabeculations. A clinically significant result was initiated on 02/21/2025 4:52 PM, Message ID [id number]. ATTESTATION: I, Jacquie Olmos as teaching physician, have reviewed the images for this case and if necessary edited the report originally created by August Guy. Bedside Ultrasound Result Date: 02/21/2025 Rafael Patiño MD 02/22/2025 1:10 AM Bedside Ultrasound Date/Time: 02/21/2025 4:04 PM Performed by: Ashley Rivero PA-C Authorized by: Ashley Rivero PA-C Exam Type: Soft TissueSoft Tissue Exam Findings & Impression: Indications: patient with pain and swelling Body Area: Upper extremity Laterality: Left Upper Extremity Location Details: Left arm Edema: the soft tissue was visualized and edema was present Fluid Collection: the soft tissue was visualized and a fluid collection was present (anechoic or mobile debris) Overall Impressions: edema and fluid collection Images: Images Saved: Yes Accession Number: [id number] IMPRESSION/PLAN: Assessment & Plan Right ureteral stone (renal stone), s/p right stent. History of UTI. For cytoscopy, right ureteroscopy, laser lithotripsy, basket, retrograde pyelogram, stent change. Risks, benefits and alternativesrediscussed including post-op management and stent management and need for stent removal. Quality Clinical Documentation: documented in this encounter Procedure Notes * Carlos Knox MD - 03/07/2025 1:58 PM EDT Full Operative Note Patient Name: Isaias Miller Date of Surgery: 03/07/2025 Pre-Op Diagnosis Codes: * Right ureteral stone [N20.1] * Right renal stone [N20.0] * History of urinary tract infection [Z87.440] Post-Op Diagnosis Codes: * Right ureteral stone [N20.1] * Right renal stone [N20.0] * History of urinary tract infection [Z87.440] Procedure(s): CYSTOSCOPY, RIGHT URETEROSCOPY, LASER LITHOTRIPSY, BASKET, RIGHT RETROGRADE PYELOGRAM, RIGHT STENT CHANGE. Surgeons and Role: * Carlos Knox MD - Primary Director Of Human Resources: Amauri Harrison MD, MPH Anesthesia Type: General ASA Code: III INDICATION FOR PROCEDURE: Patient has right ureteral and renal stones and is s/p urgent right stent. Patient presents for the above. Informed consent was obtained from the patient with the usual risks, benefits, and alternatives rediscussed Postoperative stent management and detention management/monitoring was also discussed. DESCRIPTION OF PROCEDURE: The patient was brought into the operating room and placed in the supine position. Preoperative antibiotic was already given. Patient was intubated and general anesthesia was administered by the anesthesiologist. Patient was placed in dorsal lithotomy position. The area was sterilely prepped and draped in the usual manner. A 21-Turkmen rigid cystoscope was inserted into the urethra/bladder. Mild bulbous urethral stricture. Obstructing lateal prostate. There was no gross bladder tumor. Both orifices were seen. Right stent was pulled to the meatus under fluoroscopy. A sensor wire was passed through the old stent to the right kidney under fluoroscopy and the stent was removed (grossly intact and discarded in the OR). This was exchanged for 5-Turkmen open-ended catheter. Gentle retrograde pyelogram was obtained which showed no hydronephrosis. This confirmed the location of the right urinary system. The open-ended catheter was exchanged to the superstiff wire. The sensor wire was reinserted under flouroscopy. The inner sheath and with the outer sheath of 11/13 Fr ureteral access was placed in the distal ureter viathe Superstiff wire and under fluoroscopy. A flexible ureteroscope was passed up the Superstiff wire. A moderate size proximal ureteral stone was seen. Using 200 micron Thulium laser, the stone was fragmented into smaller fragments. Stone wasfirm. Using zero-top stone basket, the stone was removed and sent for pathology. The flexible ureteroscope passed up and traversed to the kidney. All calices were evaluated. A small lower pole calyx stone was seen. It was fragmented similarly and remove with the basket. At the end, all calices were re-evaluated and no significant stone was seen. The ureteroscope was removed. The safety wire was left in place. Through the safety wire and cystoscope, a new 7-Turkmen by22 to 30 cm double-J ureteral stent was placed. Proximal coil was noted on fluoroscopy. Distal coilwas noted of fluoroscopy and cystoscopy. The bladder was emptied and the scope was removed. The string to the stent was left in place and anchored to the pubis with Masasol, steri-strip and Tegaderm.The patient was placed in supine position, extubated, awakened, and transferred to the recovery room in stable condition. PROCEDURE: right retrograde pyelogram and fluoroscopy. Initial fluoroscopy showed the stent to be in placed. After 5-Turkmen open-ended catheter was placedin the right kidney., retrograde pyelogram was obtained which show no hydronephrosis and confirmed the location of the urinary system. Throughout the case, fluoroscopy was used to locate the wire, open-ended catheter, ureteroscope, retrograde pyelogram and stent exchange. PLAN: Patient is to follow in Urology office later this week for string stent removal and post-op check. I would recommend follow up imaging after stent removal. Intraop finding and plan were discussed with Dina at the end as patient desired. Procedure Findings: right proximal ureteral stone, right lower pole renal stone, firm. Estimated Blood Loss: 1 ml Drains: new 7 fr x 22-30 cm DJ stent-right, string externalized Complication none Post-op condition stable to pacu Specimen: right renal and ureteral stones (old stent grossly intact and discard in OR) Is there concern for infection at the time of the procedure?: No Disposition: PACU - hemodynamically stable. Condition: stable I was present for the entire procedure. documented in this encounter Plan of Treatment Pending Results Name Type Priority Associated Diagnoses Date /Time Stone analysis Lab Routine 03/07/2025 2:43 PM EDT documented as of this encounter Procedures Procedure Name Priority Date/Time Associated Diagnosis Comments FL FLUOROSCOPY Routine 03/07/2025 3:32 PM EDT STONE ANALYSIS Routine 03/07/2025 2:43 PM EDT MN CYSTO/URETERO W/LITHOTRIPSY &INDWELL STENT INSRT 03/07/2025 1:58 PM EDT Right ureteral stone Right renal stone History of urinary tract infection Special Needs UMS LASER NEEDEDBooked with marcello ([employer]) documented in this encounter Results * FL Fluoroscopy (03/07/2025 3:32 PM EDT) Narrative SYSTEMGENERATED, DOCUMENTATION - 03/07/2025 3:33 PM EDT Fluoroscopy was provided during this procedure. Carlos Knox MD [facility] Final Result documented in this encounter Visit Diagnoses Diagnosis Right ureteral stone- Primary Right renal stone History of urinary tract infection Personal history of urinary (tract) infection documented in this encounter Administered Medications Inactive Administered Medications - up to 3 most recent administrations Medication Order MAR Action Action Date Dose Rate Site acetaminophen (TYLENOL) 160 mg/5 mL (5 mL) oral suspension 650 mg 650 mg, Oral, Once as needed, mild pain or 1-3 (on a general 0-10 scale), Starting on Fri03/07/25 at 1539, For 1 dose, Recovery Room (only), If unable to tolerate tablet. Shake Well acetaminophen (TYLENOL) suppository 650 mg 650 mg, Rectal, Once as needed, other (free text field), mild pain or 1-3 (on a general 0-10 scale), multi-modal analgesia, Starting on Fri03/07/25 at 1539, For 1 dose, Recovery Room (only), If unable to tolerate PO. acetaminophen (TYLENOL) tablet 650 mg 650 mg, Oral, Once as needed, mild pain or 1-3 (on a general 0-10 scale), Starting on Fri03/07/25 at 1539, For 1 dose, Recovery Room (only) documented in this encounter Active and Recently Administered Medications Times are shown in EDT. PRN Medication Order 03/05/2025 03/06/2025 03/07/2025 acetaminophen (TYLENOL) 160 mg/5 mL (5 mL) oral suspension 650 mg(Linked Group 1) 650 mg, Oral, Once as needed, mild pain or 1-3 (on a general 0-10 scale), Starting on Fri03/07/25 at 1539, For 1 dose, Recovery Room (only), If unable to tolerate tablet. Shake Well acetaminophen (TYLENOL) suppository 650 mg(Linked Group 1) 650 mg, Rectal, Once as needed, other (free text field), mild pain or 1-3 (on a general 0-10 scale), multi-modal analgesia, Starting on Fri03/07/25 at 1539, For 1 dose, Recovery Room (only), If unable to tolerate PO. acetaminophen (TYLENOL) tablet 650 mg(Linked Group 1) 650 mg, Oral, Once as needed, mild pain or 1-3 (on a general 0-10 scale), Starting on Fri03/07/25 at 1539, For 1 dose, Recovery Room (only) haloperidol lactate (HALDOL) injection 1 mg 1 mg, Intravenous, Once as needed, other (free text field), 2nd line antiemetic, Starting on Fri03/07/25 at 1539, For 1 dose, Recovery Room (only) iohexoL (OMNIPAQUE-240) 240 mg iodine/mL solution (CANCELED) As needed, Starting on Fri03/07/25 at 1451, Intra-op/procedure 1451 (Given - Provid er: Carlos Knox MD) ondansetron (PF) (ZOFRAN) injection 1-4 mg 1-4 mg, Intravenous, Once as needed, other (free text field), 1st line antiemetic, Starting on Fri03/07/25 at 1539, For 1 dose, Recovery Room (only) oxyCODONE HCl tablet 10 mg 10 mg, Oral, Once as needed, moderate pain or 4-6 (on a general 0-10 scale), Starting on Fri03/07/25 at 1539, For 1 dose, Recovery Room (only), PACU only Linked Groups Order Group 1: acetaminophen (TYLENOL) tablet 650 mgJump to med 650 mg, Oral, Once as needed, mild pain or 1-3 (on a general 0-10 scale), Starting on Fri03/07/25 at 1539, For 1 dose, Recovery Room (only) Or acetaminophen (TYLENOL) 160 mg/5 mL (5 mL) oral suspension 650 mgJump to med 650 mg, Oral, Once as needed, mild pain or 1-3 (on a general 0-10 scale), Starting on Fri03/07/25 at 1539, For 1 dose, Recovery Room (only), If unable to tolerate tablet. Shake Well Or acetaminophen (TYLENOL) suppository 650 mgJump to med 650 mg, Rectal, Once as needed, other (free text field), mild pain or 1-3 (on a general 0-10 scale), multi-modal analgesia, Starting on 03/07/25 at 1539, For 1 dose, Recovery Room (only), If unable to tolerate PO. 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 It is not the complete legal health record.[facility]
--- OUTSIDE RECORDS SUMMARY | 2025-03-07 13:58 | XMS_ITS | Encounter Summary ---
Author Organization [facility] Address [address] [place] [phone] Phone Care Team Providers Care Log Skidder Name Role Phone Pcp, Unknown Primary Care Provider Unavailabl e Reason for Visit * Auth/Cert (Routine) Specialty Diagnoses / Procedures Referred By Jaguar wellington Referred To Contact Diagnoses RIGHT STONE Procedures MS CYSTO/URETERO W/LITHOTRIPSY &INDWELL STENT INSRT LASER LITHOTRIPSY CYSTOSCOPY URETEROSCOPY RETROGRADE STENT CHANGE-UMS LASER Referral ID Status Reason Start Date Expiration Date Visits Re quested Visits Authorized [id number] 1 1 Encounter Details Date Type Department Care Team (Late st Contact Info) Description 03/07/2025 1:58 PM EDT - 03/07/2025 3:34 PM EDT Surgery OR Admitting Dept - Virtual Department [address] [place] [phone] Carlos Knox MD [address] [place] [address], [address] [phone] [email or web address] LASER LITHOTRIPSY CYSTOSCOPY URETEROSCOPY RETROGRADE STENT CHANGE-UMS LASER Surgery Details Date/Time Status Location OR Service Patient Class Case Class Case Type Trauma Case? 03/07/2025 1:58 PM Posted [facility] OR OR 05 Urology Day Surgery Panel 1 Procedure LRB Anes Op Region Wound Class Comments LASER LITHOTRIPSY CYSTOSCOPY URETEROSCOPY RETROGRADE STENT CHANGE-UMS LASER Right General Ureter Clean Contaminated (2) Surgeon Surgeon Role Service Panel Carlos Knox MD Primary Urology 1 Special Needs UMS LASER NEEDEDBooked with marcello ([employer]) documented in this encounter Social History Tobacco Use Types Packs/Day Years [...] housing situation today? I have shraddha sing 02/27/2025 How many times have you move [...] Sign Reading Time Taken Comments Blood Pressure 151/97 03/07/2025 3:32 PM EDT Pulse 92 03/07/2025 3:32 PM EDT Temperature 36.2 C (97.2 F) 03/07/2025 3:32 PM EDT Respiratory Rate 19 03/07/2025 3:32 PM EDT Oxygen Saturation 100% 03/07/2025 3:32 PM EDT Inhaled Oxygen Concentration - - [...] comments). Partial fill ok 10 tablet 02/28/2025 5 documented as of this encounter H&P Notes [...] no residual Chronic pain Coronary artery disease [place] (myocardial infarction) Renal insufficiency 2019 kidney stones [...] 02/22/2025 Performed by Carlos Knox MD at [facility] OR CURRENT MEDICATIONS: Scheduled Meds: Continuous Infusions: [...] Narrative Healthcare proxy is his daughter Amrita [employer] of [employer] Residential Stability: Low Risk (02/27/2025) Residential Stability [...] 11 ) Wt 72.6 kg (160 lb) ImG190% BMI 22.32 kg/m?? [96 %] 96 % (03/07 1157) Gen: Alert, pleasant and cooperative, no acute distress. HEENT: Atraumatic, normocephalic. Neck supple and symmetrical. Skin: [place], warm, dry. No visible rash CV: RRR [...] initiated on 02/21/2025 4:52 PM, Message ID [id number]. ATTESTATION: I, Jacquie Olmos as teaching physician, [...] collection Images: Images Saved: Yes Accession Number: [id number] IMPRESSION/PLAN: Assessment & Plan Right ureteral stone [...] Role: * Carlos Knox MD - Primary Nursing Assoc: Amauri Harrison MD, MPH Anesthesia Type: General ASA Code: III INDICATION FOR PROCEDURE: Patient has right ureteral and renal stones and is s/p urgent right stent. Patient presents for the above. Informed consent was obtained from the patient with the usual risks, benefits, and alternatives rediscussed Postoperative stent management and [facility] management/monitoring was also discussed. DESCRIPTION OF PROCEDURE: The patient was brought into the operating room and placed in the supine position. Preoperative antibiotic was already given. Patient was intubated and general anesthesia was administered by the anesthesiologist. Patient was placed in dorsal lithotomy position. The area was sterilely prepped and draped in the usual manner. A 21-Mozambican rigid cystoscope was inserted into the urethra/bladder. [...] in the OR). This was exchanged for 5-Mozambican open-ended catheter. Gentle retrograde pyelogram was obtained [...] the safety wire and cystoscope, a new 7-Mozambican by22 to 30 cm double-J ureteral stent [...] the stent to be in placed. After 5-Mozambican open-ended catheter was placedin the right kidney., [...] STONE ANALYSIS Routine 03/07/2025 2:43 PM EDT MS CYSTO/URETERO W/LITHOTRIPSY &INDWELL STENT INSRT 03/07/2025 1:58 PM EDT Right ureteral stone Right renal stone History of urinary tract infection Special Needs UMS LASER NEEDEDBooked with marcello ([employer]) documented in this encounter Results * [place] Fluoroscopy (03/07/2025 3:32 PM EDT) Narrative SYSTEMGENERATED, DOCUMENTATION - 03/07/2025 3:33 PM EDT Fluoroscopy was provided during this procedure. us Carlos POST [place] MISC Final Result documented in this encounter Visit Diagnoses Diagnosis Right ureteral stone- Primary Right renal stone History of urinary tract infection Personal history of urinary (tract) infection Right ureteral stone Right renal stone History [...] (only) iohexoL (OMNIPAQUE-240) 240 mg iodine/mL solution As needed, Starting on Fri03/07/25 at 1451, Intra-op/procedure Given 03/07/2025 2:51 PM EDT 3 mL documented in this encounter Active and Recently [...] documented as of this encounter Care Teams Log Skidder Relationship Specialty Start Date End Date Pcp, Unknown PCP - General 05/10/24 documented as of this encounter Additional Source Comments The information contained in this document represents components of the legal health record. It is not the complete legal health record.[facility]
--- OUTSIDE RECORDS SUMMARY | 2025-03-07 13:58 | XMS_ITS | Encounter Summary ---
Author Organization [facility] Address [address] [place] [phone] Phone Care Team Providers Care Cash Van Salesperson Name Role Phone Pcp, Unknown Primary Care Provider Unavailabl e Reason for Visit * Auth/Cert (Routine) Specialty Diagnoses / Procedures Referred By Jaguar wellington Referred To Contact Diagnoses RIGHT STONE Procedures MA CYSTO/URETERO W/LITHOTRIPSY &INDWELL STENT INSRT LASER LITHOTRIPSY CYSTOSCOPY URETEROSCOPY RETROGRADE STENT CHANGE-UMS LASER Referral ID Status Reason Start Date Expiration Date Visits Re quested Visits Authorized [id number] 1 1 Encounter Details Date Type Department Care Team (Late st Contact Info) Description 03/07/2025 1:58 PM EDT Anesthesia Event OR Admitting Dept - Virtual Department [address] [place] [id number] Amauri Harrison MD, MPH [address] [place] [phone] [email or web address] Wendi Hernandez MD [address] [place] [phone] [email or web address] Anesthesia Record Procedure Summary Procedure Name Responsible Anesthesiologist Anesthesia Start Time Anesthesia Stop Time LASER LITHOTRIPSY CYSTOSCOPY URETEROSCOPY RETROGRADE STENT CHANGE-UMS LASER (Right: Ureter) Amauri Harrison MD, MPH 03/07/25 1358 03/07/25 1534 Events Date Time Event Comment 03/07/2025 1202 1358 In Room 1358 An Start 1358 An Start Data 1409 An Induction 1411 An LMA 1421 Procedure Start 1518 LMA Removal 1520 Procedure End 1526 an stop data 1527 Out of Room 1534 Post Op Handoff 1534 An Stop Meds Name Total fentaNYL 50 mcg/ml 100 mcg ondansetron 2 mg/mL 4 mg dexamethasone 4 mg/mL 4 mg propofol 10 mg/mL 170 mg ePHEDrine 5 mg/mL injection 10 mg ceFAZolin 2 g 2 g Lactated Ringers 1000ml 1,000 mL * Agents Name CO2 insp O2 exp Air O2 Flow (fresh gas) * Blood No blood administrations on file. Lines, Drains, and Airways Type Details Placement Removal Wound 02/23/25; 1124; Absc ess; Left; Arm; lanced in ED 02/23/25 1124 by Sanchez Tadeo RN Wound 02/27/25; 1045; Righ t; Arm; multiple helaing spider bites 02/27/25 1045 by Dina Delong RN Wound 02/27/25; 1045; Post erior, Right; Hand; spider bite 02/27/25 1045 by Dina Delong RN Wound 02/28/25; 1331; Othe r; Posterior; Head; spider bites 02/28/25 1331 by Sanchez Tadeo RN Wound 02/28/25; 1357; Othe r; Left; Chest; spider bite 02/28/25 1357 by Sanchez Tadeo RN Ureteral Stent 03/07/25; Right uret er; 7 Fr. 03/07/25 0000 by Fauzia Tian RN Ureteral Stent 02/22/25; 1359; Righ t ureter; 7 Fr.; No string 02/22/25 1359 by Chey Duenas RN 03/07/25 1423 by Fauzia Tian RN Peripheral IV Placement Date: 02/10 12/03; Placement Time: 1213; Size: 20 G; Orientation: Anterior, Right; Location: Arm; Site Prep: Chlorhexidine ; Local Anesthetic: None; Attempts: 1; Patient Tolerance: Tolerated well; Removal Date: 03/07/25; Removal Time: 1418 03/07/25 1213 by Gely Caldwell RN 03/07/25 1418 by Amauri Harrison MD, MPH Peripheral IV Placement Date: 02/10 12/03; Placement Time: 1358; Inserted by Other: Christy; Size: 20 G; Orientation: Right; Location: Wrist; Local Anesthetic: None; Attempts: 1; Patient Tolerance: Tolerated well; Removal Date: 03/07/25; Removal Time: 18403/07/25 1358 by Amauri Harirson MD, MPH 03/07/25 184 by Fawn Diana RN LMA Placement Date: 02/10 12/03; Placement Time: 141; Removal Date: 03/07/25; Removal Time: 1518 03/07/25 1411 by Amauri Harrison MD, MPH 03/07/25 1518 by Amauri Harrison MD, MPH documented in this encounter Social History Tobacco [...] Date of Assessment Author No Risk Indicated 03/08/2025 5:01 AM EDT Earnestine Norman RN * [place] Suicide Severity Rating Scale (Screener/Recent Self-Report) Question Answer Date of Assessment Author 1. Wish to be (Past 1 Month) No 025 5:01 AM Earnestine Quijano RN 2. Non-Specific Active Suici kervin Thoughts (Past 1 Month) No 03/08/2025 5:01 AM SHARONT Hodan Galloway ra, RN 6. Suicidal Behavior (Lifetime) No 5:01 AM SHARONT Earnestine Galloway RN documented as of this encounter Progress Notes * Wendi Hernandez MD - 03/10/2025 11:52 AM EDT Addendum created 03/10/25 1152 by Wendi Hernandez MD Intraprocedure Attestations deleted documented in this encounter Procedure Notes * Amauri Harrison MD, MPH - 03/07/2025 2:23 PM EDTAssociated Order(s): Airway Placement Airway Placement Procedure Note: Procedure performed by: anesthesiologist Anesthesiologist: Amauri Harrison MD, MPH Airway procedure initiated at:03/07/2025 2:11 PM and ended at. Personal Protective Equipment: Gloves: gloves Mask Ventilation: Quality: not attempted Airway Placement: Technique: LMA Rapid sequence induction: no LMA Insertion: LMA size: 3.5 LMA placement attempts: 1. Outcomes: Evidence of dental injury? no Complications observed? no documented in this encounter OR Notes * Anesthesia Postprocedure Evaluation - Amauri Harrison MD, MPH - 03/07/2025 3:34 PM EDT Anesthesia Post Operative Note Anesthesia Type: general Patient evaluated in: PACU Consciousness: awake Airway/ Respiratory Status: Airway adjuncts: no airway adjuncts. Respiratory Status: no airway complications. Supplemental O2: room air Nausea/ Vomiting: nausea and vomiting control satisfactory Hydration status: adequate Analgesia/ Pain: Current pain score: 0 Pain control is: adequate Vital Signs: Post-procedure vital signs reviewed Other: Patient experienced no anesthesia complications. Patient does not report unexpected awareness during procedure. Patient's questions answered. Patient satisfied with anesthesia care. PACU Discharge Disposition: home Entered by: Amauri Harrison MD, MPH There were no known notable events for this encounter. Vital Signs: Vitals Value Taken Time Pulse 86 03/07/25 1534 BP 151/97 03/07/25 1534 SpO2 100 03/07/25 1534 Resp 15 03/07/25 1534 Temp 98 03/07/25 1534 No vitals data found for the desired time range. * Anesthesia Preprocedure Evaluation - Bowen Jaimes CRNA - 03/06/2025 2:59 PM EDT Patient: Isaias Miller Date of Surgery: 03/07/2025 Procedure: LASER LITHOTRIPSY CYSTOSCOPY URETEROSCOPY RETROGRADE STENT CHANGE-UMS LASER (Right) Surgeons and Role: * Carlos Knox MD - Primary Relevant Problems CARDIOVASCULAR (+) CAD (coronary artery disease) (+) Coronary atherosclerosis due to lipid rich plaque (+) HTN (hypertension) (+) Hyperlipidemia RENAL (+) CKD (chronic kidney disease) NEURO/MUSCULAR/SKELETAL (+) Seizure PSYCHIATRIC/BEHAVIORAL (+) Generalized anxiety disorder (+) Major depression with psychotic features (+) Manic bipolar I disorder (+) Posttraumatic stress disorder General: Patient snapshot reviewed. 64 yo patient with right nephrolithiasis here for cystoscopy, right: ureteroscopy, retrograde pyelogram, laser lithotripsy, stent exchange. History (imported from record): Past Medical History: 2020: Cerebrovascular accident (CVA) Comment: no residual No date: Chronic pain No date: Coronary artery disease No date: [place] (myocardial infarction) 2019: Renal insufficiency Comment: kidney stones No date: Smoker - Past Surgical History: No date: BACK SURGERY Comment: laminectomy 02/22/2025: CYSTOSCOPY RETROGRADE PLACEMENT STENT-possible ussr ussl per WT; Right Comment: Performed by Carlos Knox MD at [facility] OR - Social History: Social History Tobacco Use Smoking status: Every Day Packs/day: 1.00 Types: Cigarettes Smokeless tobacco: Never Vaping Use Vaping status: never used Alcohol use: Yes Comment: rare Drug use: No - Prior Anesthetics: Previous Anesthesia Records Displaying the 20 most recent records Date Procedure Department Security Intelligence Analyst Notable Events Planned Anesthesia Type 03/07/25 LASER LITHOTRIPSY CYSTOSCOPY URETEROSCOPY RETROGRADE STENT CHANGE-UMS LASER (Right) OR Admitting Dept - Virtual Department 02/22/25 CYSTOSCOPY RETROGRADE PLACEMENT STENT-possible ussr ussl per WT (Right: Ureter) OR Admitting Dept - Virtual Department Travis Dill MD general - Physical Exam Airway: Mallampati score: I. Neck ROM is full. Mouth opening: normal. TM distance: normal. Dental: (+) edentulous Cardiovascular: The cardiovascular exam is normal. Pulmonary: The pulmonary exam is normal. Vital Signs (imported from record): BP 132/89 Temp 35.9 ??C (96.6 ??F) (Temporal) Ht 180.3 cm (5' 11 ) Wt 72.6 kg (160 lb) LcW963% BMI 22.32 kg/m?? - Lab Results (imported from record): CBC: Lab Results Component Value Date WBC 7.18 02/28/2025 RBC 4.12 (L) 02/28/2025 HGB 12.5 (L) 02/28/2025 HCT 38.0 (L) 02/28/2025 PLT 254 02/28/2025 MCV 92.2 02/28/2025 MCH 30.3 02/28/2025 MCHC 32.9 02/28/2025 RDW 12.5 02/28/2025 MVP 8.9 02/28/2025 NRBCA 0.00 02/28/2025 - BMP: Lab Results Component Value Date NA 138 02/28/2025 K 4.6 02/28/2025 CL 104 02/28/2025 CO2 26 02/28/2025 BUN 18 02/28/2025 CRE 1.10 02/28/2025 GLU 105 (H) 02/28/2025 CA 8.7 02/28/2025 GFR 74 02/28/2025 ANION 13 02/28/2025 - Anesthesia Assessment and Plan ASA physical status: 3 Anesthesia assessment: 64 yo patient with right nephrolithiasis here for cystoscopy, right: ureteroscopy, retrograde pyelogram, laser lithotripsy, stent exchange. BMI 22.1. PMH CAD with [place], HTN, HLD,CVA, seizure, chronic back pain, CKD, shoulder pain, manic bipolar I disorder, depression with psychotic features, PTSD. Current every day smoker. Consumes alcohol. Primary anesthetic: general Induction type: intravenous Airway: The plan for the airway is: LMA. Monitoring/Lines: The plan for monitoring and lines is: standard monitor. Post-op destination/disposition: PACU Notes: Anesthesia day of surgery notes: NPO > 8hrs Informed Consent: Anesthetic plan and risks discussed with: patient. documented in this encounter Plan of Treatment Not on file documented as of this encounter Procedures Procedure Name Priority Date/Time Associated Diagnosis Comments AIRWAY PLACEMENT Routine 03/07/2025 2:11 PM EDT documented in this encounter Results * ANES ETT DOUBLE LUMEN - AIRWAY LDA (03/07/2025 2:11 PM EDT) Narrative Amauri Harrison MD, MPH - 03/07/2025 2:11 PM EDT Amauri Harrison MD, MPH 03/07/2025 2:24 PM Airway Placement Procedure Note: Procedure performed by: anesthesiologist Anesthesiologist: Amauri Harrison MD, MPH Airway procedure initiated at:03/07/2025 2:11 PM and ended at. Personal Protective Equipment: Gloves: gloves Mask Ventilation: Quality: not attempted Airway Placement: Technique: LMA Rapid sequence induction: no LMA Insertion: LMA size: 3.5 LMA placement attempts: 1. Outcomes: Evidence of dental injury? no Complications observed? no Amauri Harrison MD, MPH MA ANESTHESIA Final Resu lt documented in this encounter Visit Diagnoses Not on filedocumented in this encounter Administered Medications Inactive Administered Medications - up to 3 most recent administrations Medication Order MAR Action Action Date Dose Rate Site ceFAZolin (ANCEF) 2 gram/50 mL in dextrose IVPB premix Intravenous, Administer over 30 Minutes, As needed, Starting on Fri03/07/25 at 1358, Anesthesia Intra-op Given 03/07/2025 1:58 PM EDT 2 g dexAMETHasone (DECADRON) injection Intravenous, As needed, Starting on Fri03/07/25 at 1414, Anesthesia Intra-op Given 03/07/2025 2:14 PM EDT 4 mg ePHEDrine injection Intravenous, As needed, Starting on Fri03/07/25 at 1421, Anesthesia Intra-op Given 03/07/2025 2:21 PM EDT 10 mg fentaNYL (PF) (SUBLIMAZE) injection Intravenous, As needed, Starting on Fri03/07/25 at 1410, Anesthesia Intra-op Given 03/07/2025 2:09 PM EDT 50 mcg Given 03/07/2025 1:57 PM EDT 50 mcg lactated Ringers infusion Intravenous, Continuous PRN, Starting on Fri03/07/25 at 1358, Anesthesia Intra-op New Bag 03/07/2025 1:58 PM EDT ondansetron (PF) (ZOFRAN) injection Intravenous, As needed, Starting on Fri03/07/25 at 1414, Anesthesia Intra-op Given 03/07/2025 2:14 PM EDT 4 mg propofol (DIPRIVAN) infusion Intravenous, As needed, Starting on Fri03/07/25 at 1409, Anesthesia Intra-op Given 03/07/2025 2:09 PM EDT 170 mg documented in this encounter Additional Health Concerns Infection Onset Date Last Indicated Resolved Time 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 It is not the complete legal health record.[facility]
--- OUTSIDE RECORDS SUMMARY | 2025-03-08 05:10 | XMS_ITS | Encounter Summary ---
Author Organization [facility] Address [address] [place] [phone] Phone Care Team Providers Care Water Service Supervisor Name Role Phone Pcp, Unknown Primary Care Provider Unavailabl e Reason for Visit * Reason Comments Post-op Problem Encounter Details Date Type Department Care Team ([facility] Contact Info) Description 03/08/2025 5:10 AM EDT - 03/08/2025 6:53 AM EDT Emergency [facility] [address] [place] [address] Elinor Lee MD [address] [place] [address] [email or web address] Discharge Disposition: Home or Self Care Social [...] Sign Reading Time Taken Comments Blood Pressure 194/112 03/08/2025 6:32 AM EDT Pulse 103 03/08/2025 6:32 AM EDT Temperature 36.3 C (97.3 F) 03/08/2025 6:32 AM EDT Respiratory Rate 19 03/08/2025 6:32 AM EDT Oxygen Saturation 98% 03/08/2025 6:32 AM EDT Inhaled Oxygen Concentration - - Weight 72.6 kg (160 lb) 03/08/2025 5:00 AM EDT Height 180.3 cm (5' 11 ) 03/08/2025 5:00 AM EDT Body Mass Index 22.32 03/08/2025 5:00 AM EDT documented in this encounter Functional Status * Calculated C-SSRS Risk Score (Lifetime/Recent) Answer Date of Assessment Author No Risk Indicated 03/08/2025 5:01 AM EDT Earnestine Norman RN * [place] Suicide Severity Rating Scale (Screener/Recent Self-Report) Question Answer Date of Assessment Author 1. Wish to be (Past 1 Month) No 025 5:01 AM EDT Earnestine Galloway RN 2. Non-Specific Active Suici kervin Thoughts (Past 1 Month) No 03/08/2025 5:01 AM EDT Hodan Galloway ra, RN 6. Suicidal Behavior (Lifetime) No 5:01 AM EDT Earnestine Galloway RN documented as of this encounter Discharge Instructions * Discharge Instructions* Elinor Lee MD - 03/08/2025 6:04 AM EDT You were seen in the emergency department for urinary retention after stent procedures today. Foleycatheter was placed and you are being discharged with a catheter in place. Please follow-up with your urologist to have the catheters removed. Return to emergency department for worsening pain, bloodin your urine, nausea or vomiting, fever, back pain, or for any new or concerning symptoms. Please follow-up with your PCP to have your blood pressure rechecked. Return to emergency department for headache, vision changes, vomiting, chest pain shortness of breath, or for any new or concerning symptoms. If you do not have a Primary Care Provider, please call [phone] to establish care with a localprovider. * Attachments The following attachments cannot be sent through Care Everywhere. * Urinary Retention ([place]) * Indwelling Urinary Catheter Care: General Info ([place]) * Hypertension: General Info ([place]) documented in this encounter Medications at Time [...] 03/01/2025 OMEPRAZOLE, BULK, MISC by Miscellaneous route. mupirocin (BACTROBAN) 2 % ointment Apply topically 3 (three) times a day for 19 doses. 22 g 03/01/2025 documented as of this encounter ED Notes * Arely Muhammad RN - 03/08/2025 6:51 AM EDT Pt has been cleared for discharge. VSS. NAD noted. He has been given a large Saenz bag and urinal and educated on how to switch leg bag over to 2L gravity bag. He denies any pain. He leaves department ambulatory and is noted to have a strong, steady gait. * Arely Muhammad RN - 03/08/2025 6:33 AM EDT Pt saenz bag has been changed to leg bag. Pt education and demonstration has been given on how to change from leg bag to gravity bag. He has been given a new 2L saenz bag and clean urinal to take home. There was a total of 1850 mL of tea- colored urine drained. Pt remains hypertensive, but provider aware. He states he feels much better and is ready for discharge. * Arely Muhammad RN - 03/08/2025 5:23 AM EDT Pt arrives ambulatory to room. He is A/O x 4, anxious, and cooperative. Per report, pt had a stent placed at noon on Friday. He states that he has been unable to urinate since 17:30 last evening and has 10/10 lower abdominal pain. Bladder scan showed 1048 mL of urine within bladder. Pt denies any other somatic complaints, including CP, SOB, N/V/D, IBRAHIM, fever, and chills. There are obvious strings and a wire on the external penis from the stent placing. Provider called urology and was told that it was okay to place a Saenz. Saezn, 16F, was placed with no resistance. Sterile procedure maintained. Pt tolerated procedure well. Initial return was 1250 mL of tea colored urine. Urine specimen has been obtained and sent to lab. Strings and wire from stent remain in place. * Earnestine Galloway RN - 03/08/2025 4:57 AM EDT Pt presents to ED unable to urinate since 5pm. Had laser lithotripsy and stent change 03/[address] Knox. Reports only being able to void small amounts of indu blood since procedure. Very uncomfortable in triage, frequent need to attempt urination without success. * Elinor Lee MD - 03/08/2025 4:53 AM EDT Chief Complaint Chief Complaint Patient presents with ??? Post-op Problem History of Present Illness The patient, Isaias Miller,is a 64 y.o. male who presents for evaluation of Post- op Problem The patient reports for evaluation of urinary retention. Underwent lithotripsy and ureteral stent placement with Dr. Knox yesterday, 03/07. Since about 5 PM has not been able to urinate and reports pain in his suprapubic area. Quite uncomfortable on arrival. Unless otherwise specified, I have reviewed and agree with the triage and nursing notes. ROS A ten point review of systems was negative except what was noted in the HPI. Review of Systems Past Medical History Past Medical History: Diagnosis Date ??? Cerebrovascular accident (CVA) 2019 no residual ??? Chronic pain ??? Coronary artery disease ??? IL (myocardial infarction) ??? Renal insufficiency 2019 kidney stones ??? Smoker Past Surgical History Past Surgical History: Procedure Laterality Date ??? BACK SURGERY laminectomy ??? CYSTOSCOPY RETROGRADE PLACEMENT STENT-possible ussr ussl per WT Right 02/22/2025 Performed by Carlos Knox MD at [facility] OR Home Medications Prior to Admission medications Medication Sig aspirin 81 MG EC tablet 81 mg, Daily atorvastatin (LIPITOR) 10 MG tablet Daily hydrOXYzine (VISTARIL) 25 MG capsule 25 mg, 3 times daily PRN ibuprofen (ADVIL,MOTRIN) 600 MG tablet 600 mg, Oral, Every 8 hours lisinopril (PRINIVIL,ZESTRIL) 10 MG tablet 10 mg, Oral, Daily METOPROLOL SUCCINATE ORAL 25 mg, Daily mupirocin (BACTROBAN) 2 % ointment Topical, 3 times daily Patient not taking: Reported on 03/07/2025 nicotine (NICODERM CQ) 7 mg/24 hr 1 patch, Transdermal, Daily Patient not taking: Reported on 03/07/2025 OMEPRAZOLE, BULK, MISC by Miscellaneous route. Patient not taking: Reported on 03/07/2025 tamsulosin (FLOMAX) 0.4 mg Cap 0.4 mg, Oral, Nightly Allergies Allergies Allergen Reactions ??? Cephalexin Hives ??? Pneumococcal 23-Tatiana Ps Vaccine Hives ??? Benadryl [Diphenhydramine Hcl] Rash ??? Darvocet A500 [Propoxyphene N-Acetaminophen] Unknown ??? Penicillins Unknown ??? Sulfamethoxazole Unknown ??? Sulfamethoxazole-Trimethoprim Hives and Rash Social and Family History Social History Tobacco Use ??? Smoking status: Every Day Current packs/day: 1.00 Types: Cigarettes ??? Smokeless tobacco: Never Substance Use Topics ??? Alcohol use: Yes Comment: rare Social History Substance and Sexual Activity Drug Use No No family history on file. Physical Exam Vital Signs: ED Triage Vitals [03/08/25 0500] Encounter Vitals Group BP (!) 212/124 Systolic BP Percentile Diastolic BP Percentile Heart Rate (!) 114 Respiratory Rate 24 Temperature 36.7 ??C (98 ??F) Temp Source Oral SpO2 97 % Weight 160 lb Height 5' 11 Head Circumference Peak Flow Pain Score Pain Loc Pain Education Exclude from Growth Chart Physical Exam Vitals and nursing note reviewed. Constitutional: Comments: Appears uncomfortable HENT: Head: Normocephalic and atraumatic. Eyes: Conjunctiva/sclera: Conjunctivae normal. Cardiovascular: Rate and Rhythm: Normal rate and regular rhythm. Pulmonary: Effort: Pulmonary effort is normal. No respiratory distress. Abdominal: Tenderness: There is abdominal tenderness (suprapubic). There is no right CVA tenderness or left CVA tenderness. Musculoskeletal: General: No deformity or signs of injury. Cervical back: Normal range of motion. Skin: General: Skin is warm and dry. Neurological: General: No focal deficit present. Mental Status: He is alert and oriented to person, place, and time. Psychiatric: Mood and Affect: Mood normal. Behavior: Behavior normal. Laboratory Testing Results for orders placed or performed during the hospital encounter of 03/08/25 Urine sediment Result Value Ref Range WBC 0-4 (*) NONE SEEN /hpf RBC TOO NUMEROUS TO COUNT (*) NONE SEEN /hpf URINE EPITHELIAL NONE SEEN NONE SEEN MUCUS NONE SEEN NONE SEEN /hpf BACTERIA Trace (*) NONE SEEN /hpf Urinalysis w/reflex Urine Culture Specimen: Urine Result Value Ref Range COLOR Yellow Yellow CLARITY CLOUDY GLUCOSE 1+ (*) Negative BILI Negative Negative KETONES Negative Negative SPECIFIC GRAVITY 1.020 1.005 - 1.030 BLOOD 3+ (*) Negative PH 7.0 5.0 - 8.0 Protein-UA 2+ (*) Negative NITRITE Negative Negative Leukocyte esterase, ur Trace (*) Negative Radiology Testing No orders to display MDM Assessment and Plan: Patient presents with urinary retention in the setting of recent ureteral stent placement. Bladder scan greater than 1000 cc. External safety wires noted from meatus. Discussed with urology and Foleywas placed with immediate resolution of symptoms. Hypertensive in the ED, suspect related to pain. No signs or symptoms of endorgan damage from longstanding asymptomatic at this time. Stable for disch arge with close urology follow-up and strict return precautions, discussed PCP follow-up for repeatBP check with patient who expressed understanding and agreement. ED Course as of 03/08/25 0655 FriMar 08, [address] Tavera of urology who confirmed that saenz can be placed around safety wires with care taken to make sure wires stay external. [CK] ED Course User Index [CK] Elinor Lee MD Clinical Impressions as of 03/08/25654 Acute urinary retention Hypertension, unspecified type Critical Care Time: 0 minutes Clinical Impression Diagnosis Description Comment Final diagnosis Acute urinary retention Acute urinary retention -- Disposition: Home Elinor Lee MD 03/08/25654 documented in this encounter Plan of Treatment Not on file documented as of this encounter Procedures Procedure Name Priority Date/Time Associated Diagnosis Comments URINALYSIS W/REFLEX URINE CULTURE STAT 03/08/2025 5:36 AM EDT URINE SEDIMENT STAT 03/08/2025 5:36 AM EDT documented in this encounter Results * (ABNORMAL) Urine sediment (03/08/2025 5:36 AM EDT) WBC 0-4(A) NONE SEEN /hpf [facility] RBC TOO NUMEROUS TO COUNT(A) NONE SEEN /hpf [facility] URINE EPITHELIAL NONE SEEN NONE SEEN [facility] MUCUS NONE SEEN NONE SEEN /hpf [facility] BACTERIA Trace(A) NONE SEEN /hpf [facility] 03/08/2025 5:36 AM EDT 03/08/2025 5:41 AM EDT Elinor Lee MD URINE ORDERABLES Final Resul t Performing Organization Address City/State/[facility] Co de Phone Number [address] [address] * (ABNORMAL) Urinalysis w/reflex Urine Culture (03/08/2025 5:36 AM EDT) COLOR Yellow Yellow [facility] CLARITY CLOUDY [facility] GLUCOSE 1+(A) Negative [facility] BILI Negative Negative [facility] KETONES Negative Negative [facility] SPECIFIC GRAVITY 1.020 1.005 - 1.030 [facility] BLOOD 3+(A) Negative [facility] PH 7.0 5.0 - 8.0 [facility] Protein-UA 2+(A) Negative [facility] NITRITE Negative Negative [facility] Leukocyte esterase, ur Trace(A) Negative [facility] Urine (Urine) 03/08/2025 5:3 6 AM EDT 03/08/2025 5:41 AM EDT us Elinor Lee MD URINE ORDERABLES Final Resul t [facility] [address] [place] [address] documented in this encounter Visit Diagnoses Diagnosis Acute urinary retention- Primary Hypertension, unspecified type documented in this encounter Additional Health Concerns Infection Onset Date Last Indicated Resolved Time 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 It is not the complete legal health record.[facility]
--- NOTE | 2025-03-10 13:00 | MHC.OFFVIS ---
Intake Visit Reasons: PO LT shoulder RTC 12/22/24 NE Intake Note: Isaias is a 64 year old left hand dominant male who presents today for a post operative appointment status post left shoulder rotator cuff repair done on 12/22/[address] Nobles. Patient reports he is doing great. Allergies pneumococcal vaccine (PNEUMOCOCCAL VACCINE) Allergy (Severe, Verified 03/10/25 13:03) ANAPHYLAXIS diphenhydramine (From Benadryl) Allergy (Intermediate, Verified 03/10/25 13:03) Hives Penicillins (PCN) Allergy (Intermediate, Verified 03/10/25 13:03) Hives HPI HPI PO LT shoulder RTC 12/22/24 NE: Details: Mr. Miller is a 64-year-old male who presents to the office today status post left shoulder rotator cuff repair performed on 12/22/[address] Nobles. Patient has completed all physical therapy sessions. He is very happy with his recovery. He is not experiencing any pain or limitations with range of motion. No additional complaints. [facility] Medical History CVA (cerebral vascular accident) Hyperlipidemia GERD (gastroesophageal reflux disease) Kidney stones Hypertension Surgical History History of rotator cuff surgery History of kidney surgery Previous back surgery Family History Mother Essential hypertension Father CAD (coronary artery disease) Brother Brain cancer Social History Housing: Apartment Are you a primary clinical care manager to a significant other at home: No Do you presently have visiting nurse or other home services: No Alcohol intake: current Alcohol intake frequency: holidays/special occasions only Comment: COUNTS CORRECT Patient Tobacco Use Status: Current everyday Tobacco user Tobacco use type: Cigarette Cigarette Packs Per Day: 0.5 Cigarettes Per Day: 10.0 Years Smoked: 48 e-Cigarette/Vaping Use: Never Used Second Hand Smoke Exposure: Yes service: No Current occupational status: disabled Cognitive needs: No Hearing needs: No Vision needs: No Review of Systems Const All systems reviewed & are unremarkable except as noted in HPI and below Physical Exam Const General: cooperative, healthy appearing and no acute distress Resp Effort & Inspection: normal respiratory effort and able to speak in complete sentences Extrem Other: Left shoulder no signs of infection. Full range of motion in all planes. NVI. Psych Appearance: grossly normal Mental Status: mental status grossly normal Attitude: cooperative Assessment & Plan Assessment & Plan (1) S/P right rotator cuff repair: Code(s): Z98.890 - Other specified postprocedural states Category: Surgical Plan Mr. Miller is a 64-year-old male who presents to the office today status post left shoulder rotator cuff repair performed on 12/22/[address] Nobles. Patient has completed all physical therapy sessions. He is very happy with his recovery. He is not experiencing any pain or limitations with range of motion. No additional complaints. While the office today, the patient states that he has completed all physical therapy sessions. He is satisfied with his recovery. There is no additional orthopedic intervention warranted at this time. I did recommend at the three-month postop prerna he may begin some light strengthening and progress as tolerated. He will follow up PRN, sooner if needed. Coding Level of Care Code Global (30328) Diagnoses S/P right rotator cuff repair Z98.890
--- OUTSIDE RECORDS SUMMARY | 2025-03-10 15:31 | XMS_ITS | Clinical Summary ---
Author Organization [facility] Address [address] [place] [phone] Phone Care Team Providers Care Software Quality Specialist Name Role Phone Pcp, Unknown Primary Care Provider Unavailabl e Allergies Active Allergy Reactions Criticality Noted Date Comments Diphenhydramine Hcl Rash Low 03/17/2020 Cephalexin Hives High 12/23/2023 Propoxyphene N-Acetaminophen Unknown Low 019 Penicillins Unknown Low 06/04/2018 Pneumococcal 23-Tatiana Ps Vaccine Hives High 02/22 Sulfamethoxazole Unknown Low 12/23/2023 Sulfamethoxazole-Trimethoprim Hives,Rash Low 2014 Medications aspirin 81 MG EC tablet Take 81 mg by mouth daily. Active lisinopril (PRINIVIL,ZESTRIL ) 10 MG tablet Take 1 tablet (10 mg total) by mouth daily. 30 tablet 021 Active atorvastatin (LIPITOR) 10 MG tablet Take by mouth daily. Active hydrOXYzine (VISTARIL) 25 MG capsule Take 25 mg by mouth 3 (three) times a day as needed for itching or anxiety. Active METOPROLOL SUCCINATE ORAL Take 25 mg by mouth daily. Active OMEPRAZOLE, BULK, MISC by Miscellaneous route. Active tamsulosin (FLOMAX) 0.4 mg Cap Take 1 capsule (0.4 mg total) by mouth nightly at bedtime for 7 days. 7 capsule 025 Active nicotine (NICODERM CQ) 7 mg/[address] 1 patch onto the skin daily. 30 patch Active Additional Information Patient not taking.Reported on 03/07/2025 ibuprofen (ADVIL,MOTRIN) 600 MG tablet Take 1 tablet (600 mg total) by mouth every 8 (eight) hours for 2 days. 6 tablet Active hydrocortisone (ANUSOL-HC) 2.5 % rectal cream Place rectally 2 (two) times a day. 30 g 2024 Discontinued(N o longer taking) nicotine (NICODERM CQ) 14 mg/[address] 1 patch onto the skin daily. 2024 Discontinued(N o longer taking) nicotine polacrilex (NICORETTE) [address] 1 each (2 mg total) inside cheek every 2 (two) hours as needed for smoking cessation. 2024 Discontinued(N o longer taking) ibuprofen (ADVIL,MOTRIN) 600 MG tablet Take 1 tablet (600 mg total) by mouth every 6 (six) hours as needed. 2024 Discontinued(N o longer taking) melatonin 5 mg Tab Take 1 tablet (5 mg total) by mouth nightly at bedtime. 2024 Discontinued(N o longer taking) zolpidem tartrate (ZOLPIDEM ORAL) Take by mouth. 02/21 Discontinued(N o longer taking) quetiapine fumarate (QUETIAPINE ORAL) Take by mouth. 2024 Discontinued(N o longer taking) sertraline HCl (SERTRALINE ORAL) Take by mouth. 2024 Discontinued(N o longer taking) traMADoL (ULTRAM) 50 mg tablet 2024 Discontinued(N o longer taking) meloxicam (MOBIC) 15 MG tablet 2024 Discontinued(N o longer taking) morphine (MSIR) 15 MG tablet Take 1 tablet (15 mg total) by mouth every 6 (six) hours as needed for pain (specific location in comments). Partial fill ok 8 tablet 2024 Discontinued(N o longer taking) oxyCODONE 5 MG immediate release tablet Take 1 tablet (5 mg total) by mouth every 6 (six) hours as needed for pain (specific location in comments). Partial fill ok 10 tablet 2024 Discontinued(N o longer taking) doxycycline hyclate (DORYX) 100 mg tablet (To-Go) Take 100 mg (1 tablet) by mouth twice daily for 7 days 2024 Discontinued(N o longer taking) doxycycline hyclate (VIBRAMYCIN) 100 MG capsule Take 1 capsule (100 mg total) by mouth every 12 (twelve) hours for 3 days. 6 capsule 2024 Discontinued(S top Taking at Discharge) oxyCODONE 5 MG immediate release tablet Take 1 tablet (5 mg total) by mouth every 6 (six) hours as needed for pain (specific location in comments). Partial fill ok 12 tablet 2024 Discontinued oxyBUTYnin (DITROPAN-XL) 5 MG 24 hr tablet Take 1 tablet (5 mg total) by mouth daily for 7 days. 7 tablet 2024 levoFLOXacin (LEVAQUIN) 500 MG tablet Take 1 tablet (500 mg total) by mouth daily for 3 doses. 3 tablet 2024 Discontinued levoFLOXacin (LEVAQUIN) 500 MG tablet Take 1 tablet (500 mg total) by mouth daily for 5 doses. 5 tablet 2024 ondansetron (ZOFRAN-ODT) 4 MG disintegrating tablet Take 1 tablet (4 mg total) by mouth every 8 (eight) hours as needed for nausea. 9 tablet 2024 Discontinued(S top Taking at Discharge) oxyCODONE 5 MG immediate release tablet Take 1 tablet (5 mg total) by mouth every 6 (six) hours as needed for pain (specific location in comments). Partial fill ok 2024 Discontinued oxyCODONE 5 MG immediate release tablet Take 1 tablet (5 mg total) by mouth every 6 (six) hours as needed for pain (specific location in comments). Partial fill ok 10 tablet 2024 phenazopyridine (PYRIDIUM) 200 MG tablet Take 1 tablet (200 mg total) by mouth 3 (three) times a day with meals. 10 tablet 2024 Discontinued(S top Taking at Discharge) acetaminophen (TYLENOL) 325 mg tablet Take 3 tablets (975 mg total) by mouth every 8 (eight) hours for 2 days. 2024 Discontinued(S top Taking at Discharge) mupirocin (BACTROBAN) 2 % ointment Apply topically 3 (three) times a day for 19 doses. 22 g 2024 Additional Information Patient not taking.Reported on 03/07/2025 Active Problems Problem Noted Date Diagnosed Date History of urinary tract infection 03/07/2025 Coronary atherosclerosis due to lipid rich plaqu e 03/06/2025 Generalized anxiety disorder 03/06/2025 Posttraumatic stress disorder 03/06/2025 Hyperlipidemia 03/06/2025 Major depression with psychotic features Manic bipolar I disorder 03/06/2025 Seizure 03/06/2025 Right renal stone 02/27/2025 Assessment & Plan (02/28/2025 1:04 PM EDT): Patient was admitted for pain control after stenting on the right on 02/1425. He was discharged home on antibiotics, Levaquin. He continued to have right sided abdominal pain frequency hematuria. He did not have fever. CT abdomen showed double-J ureteral stent in place with persistent 7 mm proximal right ureteral stone without hydronephrosis, creatinine stable Urologist felt that colic was worsened by excessive fluid intake and bladder irritant intake Dr. Knox noted that he would not perform surgery while inpatient, neXT stage surgery would be planned after he follows up later in the week as an outpatient-right ureteroscopy/laser lithotripsy Will start Pyridium, hold IV morphine as it did not seem to help, start scheduled Tylenol and lidocaine patch Assessment & Plan (02/27/2025 1:23 PM EDT): Assessment & Plan (02/27/2025 5:07 PM EDT): -Admit to medicine for pain control. Admitting MD did not suspect acute infection, but continued Levofloxacin, as had already been started as an outpatient to optimize the situation -Appreciate urology consultation. , Dr. Knox was called last night -Continue tamsulosin and oxybutinin -IV morphine for severe pain, and oxycodone PO for moderate pain. - N.p.o. after midnight in case of procedure - Call placed to urology service Assessment & Plan (02/27/2025 5:26 AM EDT): -Admit to medicine for pain control. I do not suspect acute infection, but will continue Levofloxacin, as had already been started as an outpatient to optimize the situation for the earliest possible removal of the stone. -Appreciate urology consultation. -Continue tamsulosin and oxybutinin -IV morphine for severe pain, and oxycodone PO for moderate pain. Acute unilateral obstructive uropathy 02/22/2025 Assessment & Plan (02/23/2025 9:54 AM EDT): This is a 64-year-old male With a history of CAD, CKD, tobacco use who was previously found to have an 8 mm right kidney stone, seen in consult for RT obstructive uropathy. He is now POD 1 RT stent placement. Cloudy urine effluxed. For renal stent colic, can consider oxybutynin ER 10mg, qd, as well as flomax 0.4mg qday. Recommend 7 days of antibiotics. He will ultimately need definitive stone management in the outpatient setting. Assessment & Plan (02/22/2025 11:58 AM EDT): This is a 64-year-old male With a history of CAD, CKD, tobacco use who was previously found to have an 8 mm right kidney stone, seen in consult for RT obstructive uropathy. Seen on CT. He is in significant renal colic. Thankfully, he is afebrile, potential infection behind the stone which is why UA is negative. Will start patient on empiric Levaquin. Will proceed with right ureteral stent placement today. I briefly discussed the procedure, and the risks and benefits of said procedure which include but are not limited to Renal colic, hematuria, infection, perforation, complications with anesthesia. He accepted these risks. please keep patient NPO. He will ultimately need definitive stone management in the outpatient setting. Right ureteral stone 02/22/2025 Hydronephrosis, right 02/22/2025 Pyelonephritis of right kidney 02/22/2025 Nephrolithiasis 02/21/2025 Assessment & Plan (02/22/2025 1:21 PM EDT): - CT abdomen/pelvis shows proximal right ureteral calculus causing moderate collecting system dilatation and evidence of obstructive nephropathy - OR today for cystoscopy, right stent placement, retrograde pyelogram. - Pain management - IVF - Flomax started - urology advises empiric abx coverage with levaquin, wbc is normal but there is a slight left shift. Would consider stopping if no further indication. Assessment & Plan (02/21/2025 8:53 PM EDT): - Patient was seen in the ED in December and was noted to have an 8 mm right side calculus. - He began to have right lower quadrant pain yesterday around 4 PM and it has been persistent - CT abdomen/pelvis shows proximal right ureteral calculus causing moderate collecting system dilatation and evidence of obstructive nephropathy - ED discussed case with urology and patient is planned for the OR tomorrow - NPO after midnight - Pain management with Dilaudid - IVF - Flomax started - Strain all urine CAD (coronary artery disease) 02/21/2025 Assessment & Plan (02/28/2025 1:04 PM EDT): Denies active chest symptoms, continue aspirin and Lipitor Assessment & Plan (02/27/2025 1:23 PM EDT): Assessment & Plan (02/27/2025 12:27 PM EDT): Denies active chest symptoms, continue aspirin and Lipitor Assessment & Plan (02/22/2025 1:09 PM EDT): - Denies any chest pain - Continue aspirin, statin, beta-gisela Assessment & Plan (02/21/2025 8:53 PM EDT): - Denies any chest pain - Continue aspirin, statin, beta-gisela HTN (hypertension) 02/21/2025 Assessment & Plan (02/28/2025 1:04 PM EDT): Normotensive Assessment & Plan (02/27/2025 1:23 PM EDT): Assessment & Plan (02/27/2025 12:27 PM EDT): Continue home medications, hold if the patient becomes septic and hypotensive. Stable overnight Assessment & Plan (02/27/2025 5:26 AM EDT): Continue home medications, hold if the patient becomes septic and hypotensive. Assessment & Plan (02/22/2025 1:09 PM EDT): - Blood pressure is uncontrolled however this is likely secondary to pain - Patient reports he is taking lisinopril and metoprolol Assessment & Plan (02/21/2025 8:53 PM EDT): - Blood pressure is uncontrolled however this is likely secondary to pain - Patient reports he is taking lisinopril and metoprolol, I do not see this in his dispense history CKD (chronic kidney disease) 02/21/2025 Assessment & Plan (02/28/2025 1:04 PM EDT): Creatinine stable again overnight Assessment & Plan (02/27/2025 1:23 PM EDT): Assessment & Plan (02/27/2025 12:27 PM EDT): Creatinine stable overnight, appears to be at baseline, 1.1 Assessment & Plan (02/22/2025 1:09 PM EDT): - Creatinine slightly above his baseline, usually 1 but here up to 1.3-1.4 - Continue IV fluid then encourage oral hydration Assessment & Plan (02/21/2025 8:53 PM EDT): - Creatinine slightly above his baseline, usually 1 and today it is 1.4 - Continue IV fluid Abscess 02/21/2025 Assessment & Plan (02/22/2025 1:21 PM EDT): - Patient reports he has multiple bug bites and left arm bug bite appeared infected in the ED. I&D was performed and a small amount of purulent discharge was noted. Culture is pending - Empirically started on Doxy as patient has multiple antibiotic allergies, would transition to just levaquin as above , with concomitant uti empiric coverage, if his staph is sensitive. -MRSA swab. Assessment & Plan (02/21/2025 8:53 PM EDT): - Patient reports he has multiple bug bites and left arm bug bite appeared infected in the ED. I&D was performed and a small amount of purulent discharge was noted. Culture is pending - Empirically started on Doxy as patient has multiple antibiotic allergies Shoulder pain 09/24/2020 Episode of shaking 09/21/2020 [...] considered Tobacco abuse 09/21/2020 Assessment & Plan (02/22/2025 1:09 PM EDT): - Smoking cessation advised, nicotine patch declined Assessment & Plan (02/21/2025 8:53 PM EDT): - Smoking cessation advised, nicotine patch declined Assessment & Plan (09/21/2020 1:36 AM EDT): With chronic use Trial patch and gum Pulmonary nodule less than 6 mm in diameter with low risk for malignant neoplasm 09/21/2020 Assessment & Plan (09/21/2020 1:48 AM EDT): 5mm nodule in an active smoker Rec to have FU within [address] read. Encounters Date Type Department Care Team Description 03/08/2025 5:10 AM EDT - 03/08/2025 6:53 AM EDT Emergency [facility] [address] [place] [id number] Elinor Lee MD Discharge Disposition: Home or Self Care 03/07/2025 1:58 PM EDT - 03/07/2025 3:34 PM EDT Surgery OR Admitting Dept - Virtual Department [address] [place] [phone] Carlos Knox MD LASER LITHOTRIPSY CYSTOSCOPY URETEROSCOPY RETROGRADE STENT CHANGE-UMS LASER 03/07/2025 1:58 PM EDT Anesthesia Event OR Admitting Dept - Virtual Department [address] [place] [phone] Amauri Harrison MD, MPH Wendi Hernandez MD 03/07/2025 11:15 AM EDT - 03/07/2025 6:39 PM EDT Hospital Encounter OR Admitting Dept - Virtual Department [address] [place] [address] Carlos Knox MD Discharge Disposition: Home or Self Care 03/07/2025 Procedure Pass OR Admitting Dept - Virtual Department [address] [place] [address] 02/27/2025 1:42 AM EDT - 03/01/2025 11:00 AM EDT Hospital Encounter [facility] [address] [place] [address] Michael Villar MD Yau, Cyrus H, MD Altman, Evan K, DO, MPH Troy Patricio MD Discharge Disposition: Home or Self Care 02/27/2025 Procedure Pass [address] [address] 02/22/2025 1:32 PM EDT Anesthesia Event OR Admitting Dept - Virtual Department [address] [place] [phone] Travis Dill MD Flores, Jose A, MD 02/22/2025 1:07 PM EDT - 02/22/2025 2:18 PM EDT Surgery OR Admitting Dept - Virtual Department [address] [place] [phone] Carlos Knox MD CYSTOSCOPY RETROGRADE PLACEMENT STENT-possible ussr ussl per WT 02/22/2025 Procedure Pass OR Admitting Dept - Virtual Department [address] [place] [address] 02/21/2025 4:05 PM EDT Ancillary Procedure [address] [address] Ashley Rivero PA-C 02/21/2025 1:41 PM EDT - 02/23/2025 1:22 PM EDT Hospital Encounter [facility] [address] [place] [address] Neisha Olivas DO Altman, Evan K, DO, MPH Discharge Disposition: Home or Self Care 02/21/2025 Procedure Pass [address] [address] 01/24/2025 9:30 PM EDT Ancillary Procedure [address] [address] Chadwick La DO 01/24/2025 9:21 PM EDT - 01/25/2025 12:02 AM EDT Emergency [facility] [address] [place] [address] Chadwick La, DO Discharge Disposition: Home or Self Care 12/16/2024 10:38 PM EDT - 12/17/2024 5:47 AM EDT Emergency [facility] [address] [place] [address] Elinor Lee MD Discharge Disposition: Home or Self Care 12/16/2024 Procedure Pass [facility], [facility] [address] [place] [address] from Last 3 Months Immunizations Immunization Administration Dates Next Due Influenza High-Dose Trivalent Preservative Free IM 02/23/2025 Td, unspecified formulation 07/17/2016 Social History Tobacco [...] Mass Index 22.32 03/08/2025 5:00 AM EDT Plan of Treatment Health Maintenance Due Date Last Done Comments DEPRESSION SCREENING 1970 SMOKING Hx and SMOKELESS TOBACCO SCREENING 09/28/1971 HEPATITIS C SCREENING 1976 COLOGUARD 09/28/2003 COLONOSCOPY 09/28/2003 COLORECTAL CANCER SCREENING 09/28/2003 FIT TEST 09/28/2003 FOBT 09/28/2003 SIGMOIDOSCOPY 09/28/2003 VIRTUAL COLONOSCOPY 09/28/2003 ZOSTER VACCINES (2 of 2) 03/22/2020 01/26/2020 BLOOD PRESSURE 06/24/2024 12/23/2023 COVID-19 VACCINE ( season) 2025 05/02/2022, 05/17/2021, 06/23/2020, Additional history exists LIPID PANEL 02/22/2026 02/22/2025, 09/21/2020 CREATININE LEVEL 02/28/2026 02/28/2025, , 02/27/2025, Additional history exists POTASSIUM LEVEL 02/28/2026 02/28/2025, 02/09, 02/27/2025, Additional history exists Adult Td,Tdap Booster 07/17/2026 07/17/2016 RSV VACCINE (1 - 1-dose 75+ series) 2033 INFLUENZA VACCINE Completed 02/23/2025, , 04/24/2021, Additional history exists ABDOMINAL AORTIC ANEURYSM (AAA) SCREENING Completed 02/27/2025, 02/21/2025, 12/17/2024, Additional history exists HEPATITIS A VACCINES Aged Out No long [...] age to complete this topic Medical Devices Implanted Type Area Media Technician Device Identifier Shelf Expiration Date Model / Serial / Lot Kit Stent 7.0fr 22 30cm Double Pigtail Taper Tip Threaded Guidewire Hydroplus Coated Percuflex Radiopaque Y Contour - [id number] Implanted:Qty: 1 on 02/22/2025 by Carlos Knox MD at [facility] Right: Ureter [employer] 10/11/2027 180-157 / / [id number] Kit Stent 7.0fr 22 30cm Double Pigtail Taper Tip Threaded Guidewire Hydroplus Coated Percuflex Radiopaque Y Contour - [id number] Implanted:Qty: 1 on 03/07/2025 by Carlos Knox MD at [facility] Right: Ureter [email or web address] [id number] 11/04/2027 [id number] / / [id number] Procedures Procedure Name Priority Date/Time Associated Diagnosis Comments URINE SEDIMENT STAT 03/08/2025 5:36 AM EDT URINALYSIS W/REFLEX URINE CULTURE STAT 03/08/2025 5:36 AM EDT FL FLUOROSCOPY Routine 03/07/2025 3:32 PM EDT STONE ANALYSIS Routine 03/07/2025 2:43 PM EDT AIRWAY PLACEMENT Routine 03/07/2025 2:11 PM EDT UT CYSTO/URETERO W/LITHOTRIPSY &INDWELL STENT INSRT 03/07/2025 1:58 PM EDT Right ureteral stone Right renal stone History of urinary tract infection Special Needs UMS LASER NEEDEDBooked with marcello ([employer]) BASIC METABOLIC PANEL Routine 02/28/2025 5:23 AM EDT CBC Routine 02/28/2025 5:23 AM EDT IP CONSULT TO WOUND NURSE Routine 02/27/2025 11:33 AM EDT CBC AND DIFFERENTIAL Routine 02/27/2025 5:49 AM EDT PHOSPHORUS Routine 02/27/2025 5:49 AM EDT MAGNESIUM Routine 02/27/2025 5:49 AM EDT BASIC METABOLIC PANEL Routine 02/27/2025 5:49 AM EDT LACTIC ACID (LACTATE) STAT 02/27/2025 3:41 AM EDT BLOOD CULTURE, ROUTINE STAT 02/27/2025 3:41 AM EDT BLOOD CULTURE, ROUTINE STAT 02/27/2025 3:[address] ABDOMEN/PELVIS WITHOUT CONTRAST Routine 02/27/2025 2:47 AM EDT URINE SEDIMENT STAT 02/27/2025 1:28 AM EDT URINALYSIS W/REFLEX URINE CULTURE STAT 02/27/2025 1:28 AM EDT URINE CULTURE Routine 02/27/2025 1:28 AM EDT BASIC METABOLIC PANEL STAT 02/27/2025 1:22 AM EDT CBC AND DIFFERENTIAL STAT 02/27/2025 1:22 AM EDT CBC Routine 02/23/2025 5:12 AM EDT BASIC METABOLIC PANEL Routine 02/23/2025 5:12 AM EDT IP CONSULT TO WOUND NURSE Routine 02/23/2025 12:08 AM EDT MRSA PCR SCREEN STAT 02/22/2025 10:02 PM EDT FL FLUOROSCOPY Routine 02/22/2025 2:18 PM EDT URINE CULTURE STAT 02/22/2025 2:00 PM EDT AIRWAY PLACEMENT Routine 02/22/2025 1:37 PM EDT CYSTOSCOPY RETROGRADE PLACEMENT STENT 02/22/2025 1:30 PM EDT Hydronephrosis, right Right ureteral stone Pyelonephritis of right kidney CBC AND DIFFERENTIAL Routine 02/22/2025 6:20 AM EDT PHOSPHORUS Routine 02/22/2025 6:20 AM EDT MAGNESIUM Routine 02/22/2025 6:20 AM EDT BASIC METABOLIC PANEL Routine 02/22/2025 6:20 AM EDT LIPID PANEL Routine 02/22/2025 6:20 AM EDT ECG 12-LEAD Routine 02/21/2025 9:50 PM EDT WOUND CULTURE/SMEAR STAT 02/21/2025 4 :48 PM EDT US BEDSIDE Routine 02/21/2025 4:04 PM EDT URINE SEDIMENT STAT 02/21/2025 3:39 PM EDT URINALYSIS W/REFLEX URINE CULTURE STAT 02/21/2025 3:[address] ABDOMEN/PELVIS WITH CONTRAST Routine 02/21/2025 3:21 PM EDT LIPASE STAT 02/21/2025 1:35 PM EDT LFTS (HEPATIC PANEL) STAT 02/21/2025 1:35 PM EDT BASIC METABOLIC PANEL STAT 02/21/2025 1:35 PM EDT CBC AND DIFFERENTIAL STAT 02/21/2025 1:35 PM EDT US BEDSIDE Routine 01/24/2025 9:29 PM EDT [...] AND DIFFERENTIAL STAT 12/17/2024 12:08 AM EDT from Last 3 Months Results * (ABNORMAL) Urinalysis w/reflex Urine Culture (03/08/2025 5:36 AM EDT) Only the most recent of4 resultswithin the time period is included. COLOR Yellow Yellow [facility] CLARITY CLOUDY [facility] GLUCOSE 1+(A) Negative [facility] BILI Negative Negative [facility] KETONES Negative Negative [facility] SPECIFIC GRAVITY 1.020 1.005 - 1.030 [facility] BLOOD 3+(A) Negative [facility] PH 7.0 5.0 - 8.0 [facility] Protein-UA 2+(A) Negative [facility] NITRITE Negative Negative [facility] Leukocyte esterase, ur Trace(A) Negative [facility] Urine (Urine) 03/08/2025 5:3 6 AM EDT 03/08/2025 5:41 AM EDT us Elinor Lee MD URINE ORDERABLES Final Resul t [facility] [address] [place] [address] * (ABNORMAL) Urine sediment (03/08/2025 5:36 AM EDT) Only the most recent of3 resultswithin the time period is included. WBC 0-4(A) NONE SEEN /hpf [facility] RBC TOO NUMEROUS TO COUNT(A) NONE SEEN /hpf [facility] URINE EPITHELIAL NONE SEEN NONE SEEN [facility] MUCUS NONE SEEN NONE SEEN /hpf [facility] BACTERIA Trace(A) NONE SEEN /hpf [facility] 03/08/2025 5:36 AM EDT 03/08/2025 5:41 AM EDT Elinor Lee MD URINE ORDERABLES Final Resul t [address] [address] * FL Fluoroscopy (03/07/2025 3:32 PM EDT) Narrative SYSTEMGENERATED, DOCUMENTATION - 03/07/2025 3:33 PM EDT Fluoroscopy was provided during this procedure. us Carlos Knox MD IMG [place] MISC Final Result * ANES ETT DOUBLE LUMEN - AIRWAY LDA (03/07/2025 2:11 PM EDT) Only the most recent of2 resultswithin the time period is included. Narrative Amauri Harrison MD, MPH - 03/07/2025 [...] of dental injury? no Complications observed? no us Amauri Harrison MD, MPH [place] ANESTHESIA Final Resu lt * (ABNORMAL) CBC (02/28/2025 5:23 AM EDT) Only the most recent of2 resultswithin the time period is included. WBC 7.18 4.00 - 11.00 K/uL [facility] RBC 4.12(L) 4.50 - 5.90 M/uL [facility] HGB 12.5(L) 13.5 - 17.5 g/dL [facility] HCT 38.0(L) 41.0 - 53.0 % [facility] PLT 254 150 - 450 K/uL [facility] MCV 92.2 80.0 - 100.0 fL [facility] MCH 30.3 27.0 - 31.0 pg [facility] MCHC 32.9 32.0 - 36.0 g/dL [facility] RDW 12.5 11.5 - 14.5 % [facility] MPV 8.9 8.4 - 12.0 fL [facility] NRBC 0.00 0.00 /100 WBCs [facility] ABSOLUTE NRBC 0.00 0.00 K/uL [facility] Blood 02/28/2025 5:23 AM EDT 02/28/2025 5:58 AM EDT us Sharri Noe NP LAB BLOOD ORDERABLES Fi nal Result Performing Organization Address City/State/[facility] Co de Phone Number [address] [address] * (ABNORMAL) Basic metabolic panel (02/28/2025 5:23 AM EDT) Only the most recent of8 resultswithin the time period is included. SODIUM 138 133 - 146 mmol/L [facility] CHLORIDE 104 96 - 108 mmol/L [facility] POTASSIUM 4.6 3.3 - 5.1 mmol/L [facility] CO2 26 21 - 35 mmol/L [facility] BUN 18 6 - 19 mg/dL [facility] CREATININE 1.10 0.5 - 1.5 mg/dL [facility] GLUCOSE 105(H) 70 - 99 mg/dL [facility] CALCIUM 8.7 8.4 - 10.3 mg/dL [facility] EGFR 74 >59 mL/min/1.7 3m2 [facility] Comment:Estimated glomerular filtration rate calculated using the CKD-EPI refit equation. ANION GAP 13 10 - 20 mmol/L [facility] Blood 02/28/2025 5:23 AM EDT 02/28/2025 5:58 AM EDT us Sharri Merchant Kusum GM LAB BLOOD ORDERABLES Fi nal Result [address] [address] * (ABNORMAL) CBC and differential (02/27/2025 5:49 AM EDT) Only the most recent of6 resultswithin the time period is included. WBC 9.35 4.00 - 11.00 K/uL [facility] RBC 4.25(L) 4.50 - 5.90 M/uL [facility] HGB 13.1(L) 13.5 - 17.5 g/dL [facility] HCT 39.4(L) 41.0 - 53.0 % [facility] PLT 247 150 - 450 K/uL [facility] MCV 92.7 80.0 - 100.0 fL [facility] MCH 30.8 27.0 - 31.0 pg [facility] MCHC 33.2 32.0 - 36.0 g/dL [facility] RDW 12.4 11.5 - 14.5 % [facility] MPV 8.7 8.4 - 12.0 fL [facility] NRBC 0.00 0.00 /100 WBCs [facility] ABSOLUTE NRBC 0.00 0.00 K/uL [facility] DIFF METHOD Auto [facility] NEUTS 68.9 48.0 - 76.0 % [facility] LYMPHS 17.6(L) 18.0 - 41.0 % [facility] MONOS 8.0 4.0 - 11.0 % [facility] EOS 4.6 0.0 - 5.0 % [facility] BASOS 0.3 0.0 - 1.5 % [facility] Granulocytes, immature (%) 0.6 0.0 - 0.9 % [facility] ABSOLUTE NEUTS 6.43 1.92 - 7.60 K/uL [facility] ABSOLUTE LYMPHS 1.65 0.72 - 4.10 K/uL [facility] ABSOLUTE MONOS 0.75 0.16 - 1.10 K/uL [facility] ABSOLUTE EOS 0.43 0.00 - 0.50 K/uL [facility] ABSOLUTE BASOS 0.03 0.00 - 0.15 K/uL [facility] Granulocytes, immature 0.06 0.00 - 0.09 K/uL [facility] Blood 02/27/2025 5:49 AM EDT 02/27/2025 5:52 AM EDT us Thompson Chin Omar PA-C LAB BLOOD ORDERABLES Final Result [address] [address] * Phosphorus (02/27/2025 5:49 AM EDT) Only the most recent of2 resultswithin the time period is included. PHOSPHORUS 3.2 2.7 - 4.5 mg/dL [facility] Blood 02/27/2025 5:49 AM EDT 02/27/2025 5:52 AM EDT us Thompson Chin Omar PA-C LAB BLOOD ORDERABLES Final Result Performing Organization Address [facility] Co de Phone Number [address] [address] * Magnesium (02/27/2025 5:49 AM EDT) Only the most recent of2 resultswithin the time period is included. MAGNESIUM 1.9 1.6 - 2.6 mg/dL [facility] Blood 02/27/2025 5:49 AM EDT 02/27/2025 5:52 AM EDT us Thompson Chin Omar PA-C LAB BLOOD ORDERABLES Final Result Performing Organization Address City/[facility]/ZIP Co de Phone Number [address] [address] * Blood Culture, Routine (02/27/2025 3:41 AM EDT) Only the most recent of2 resultswithin the time period is included. Special Requests None 02/27/2025 3:14 AM EDT [facility] BLOOD CULTURE NO GROWTH 5 DAYS 03/04/2025 4:18 AM EDT [facility] Blood (Blood) 02/27/2025 3:4 1 AM EDT 02/27/2025 3:55 AM EDT us Ashley Varela PA-C MICROBIOLOGY - GENERA L ORDERABLES Final Result Performing Organization Address [facility] Co de Phone Number [address] [address] * Lactate (02/27/2025 3:41 AM EDT) Only the most recent of2 resultswithin the time period is included. LACTATE 1.05 0.50 - 2.20 mmol/L [facility] Blood 02/27/2025 3:41 AM EDT 02/27/2025 3:53 AM EDT us Ashley Varela PA-C LAB BLOOD ORDERABLES Final Result Performing Organization Address [facility] Co de Phone Number [address] [address] * CT ABDOMEN/PELVIS WITHOUT CONTRAST (02/27/2025 2:47 AM EDT) Anatomical Region Laterality Modality Abdomen, Pelvis Computed Tomogra phy 02/27/2025 3:01 AM EDT Impressions 02/27/2025 3:07 AM EDT Double-J right ureteral stent with persistent 7 mm proximal right ureteral stone. No hydronephrosis. Narrative 02/27/2025 3:[address] ABDOMEN/PELVIS WITHOUT CONTRAST Referring clinician's provided indication for this examination in Epic: * Abdominal pain, acute, nonlocalized; * Flank pain, kidney stone suspected TECHNIQUE: Multidetector-row CT of the abdomen and pelvis was performed without administration of intravenous contrast using tailored dose modulation techniques. Images were reconstructed in the axial, coronal, and sagittal planes. COMPARISON: None FINDINGS: Lower Chest: No [...] proximal portion in the upper pole and the distal end in the bladder. 7 mm stone [...] the thoracolumbar spine. No destructive osseous lesions.. Procedure Note Sharri Hall MD - 02/27/2025 CT ABDOMEN/PELVIS WITHOUT CONTRAST Referring clinician's provided indication for this examination in Epic: *Abdominal pain, acute, nonlocalized; * Flank pain, kidney stonesuspected TECHNIQUE: Multidetector-row CT of the abdomen and pelvis was performedwithout administration of intravenous contrast using tailored dosemodulation techniques. Images were reconstructed in the axial, coronal,and sagittal planes. COMPARISON: None FINDINGS: Lower Chest: No consolidation or pleural effusions. Liver: 3 mm hypodense lesion in segment 6 (3:48), too small to fullycharacterize but likely a cyst. Biliary: Noninflamed gallbladder. No biliary ductal dilatation. Spleen: No splenomegaly or focal lesions. Pancreas: Normal contour. No ductal dilatation. Adrenal Glands: No nodules. Kidneys/Ureters: Interval placement of a double-J right ureteral stentwith the proximal portion in the upper pole and the distal end in thebladder. 7 mm stone in the proximal ureter (6:372) with no hydronephrosis.Mild right perinephric and periureteral stranding. Bowel: No bowel wall thickening or dilatation. Normal appendix. Peritoneum/Retroperitoneum: No pneumoperitoneum or free fluid. Lymph Nodes: No lymphadenopathy. Pelvic Organs/Bladder: Prostatomegaly measuring 5.1 cm. Vessels: No abdominal aortic aneurysm. Bones/Soft Tissues: Status post posterior fusion of L3-L4. Mild multileveldegenerative changes throughout the visualized portions the thoracolumbarspine. No destructive osseous lesions.. IMPRESSION: Double-J right ureteral stent with persistent 7 mm proximal right ureteralstone. No hydronephrosis. us Ashley Varela PA-C IMG CT ABD/PELVIS Fin al Result * Urine Culture (02/27/2025 1:28 AM EDT) Only the most recent of2 resultswithin the time period is included. Pathologist [facility] Special Requests None Reflexed from [id number] 02/27/2025 2:14 AM EDT [facility] Urine Culture NO GROWTH 48HRS 03/01/2025 8:36 AM EDT [facility] Urine 02/27/2025 1:28 AM EDT 02/27/2025 1:42 AM EDT Rico Mcfarlane MD MICROBIOLOGY - GENERAL ORD ERABLES Final Result [address] [address] * (ABNORMAL) MRSA PCR SCREEN (02/22/2025 10:02 PM EDT) MRSA PCR SCREEN Positive(A ) Negative [facility] Comment:The Xpert MRSA Assay is intended to aid in the prevention and control of MRSA infections in healthcare settings. The assay is not intended to diagnose nor to guide or monitor treatment for MRSA infections. Other (Nasal) 02/22/2025 10: 02 PM EDT 02/22/2025 10:10 PM EDT us Aslhey Rivero PA-C NON CULTURE MICROBIOLOG Y Final Result [address] [address] * FL Fluoroscopy (02/22/2025 2:18 PM EDT) Narrative SYSTEMGENERATED, DOCUMENTATION - 02/22/2025 2:19 PM EDT Fluoroscopy was provided during this procedure. us William Tavera MD IMG FL MISC Final Result * (ABNORMAL) Lipid panel (02/22/2025 6:20 AM EDT) HDL 62 mg/dL [facility] Comment: Interpretation <40 mg/dL: Low HDL cholesterol (major risk factor for CHD) Greater than or equal to 60 mg/dL: High HDL cholesterol ( negative risk factor for CHD) HDL - cholesterol is affected by a number of factors, e.g. smoking, excerise, hormones, sex and age. CHOLESTEROL 178 0 - 240 mg/dL [facility] TRIGLYCERIDES 66 30 - 160 mg/dL [facility] LDL 103 50 - 129 mg/dL [facility] Comment: LDL levels in terms of risk for coronary heart disease: <100 mg/dL: Optimal 100-129 mg/dL: Near or above optimal 130-159 mg/dL: Borderline high 160-189 mg/dL: High >190 mg/dL: Very High CARDIAC RISK RATIO 2.9(L) 3.4 - 5.0 [facility] Blood 02/22/2025 6:20 AM EDT 02/22/2025 6:44 AM EDT us Neisha Olivas DO LAB BLOOD ORDERABLES Final Re sult [address] [address] * ECG 12-LEAD (02/21/2025 9:50 PM EDT) Only the most recent of2 resultswithin the time period is included. Ventricular Rate EKG/MIN 65 BPM [facility] Atrial Rate 65 BPM [facility] UT Interval 154 ms [facility] QRS Duration 112 ms [facility] QT Interval 446 ms [facility] QTC Interval 463 ms [facility] P [place] 33 degrees [facility] R Wave [place] 65 degrees [facility] T Wave [place] 78 degrees [facility] 02/21/2025 9:50 PM EDT 02/22/2025 7:48 AM EDT Narrative [facility] - 02/22/2025 7:48 AM EDT Normal sinus rhythm Moderate voltage criteria for LVH, may be normal variant ( Sokolow-[place] , [place] product ) Borderline ECG When compared with ECG of 24-Jan-2025 16:25, Vent. rate has decreased by [address] elevation now present in Anterior leads Confirmed by Bobby Garcia ([id number]) on 02/22/2025 7:48:33 AM us Neisha A Namibian DO ECG ORDERABLES Final Result [facility] * (ABNORMAL) Wound culture/smear (02/21/2025 4:48 PM EDT) Special Requests None 02/21/2025 4:48 PM EDT [facility] GRAM STAIN Many WBC'S , Moderate GRAM POSITIVE COCCI IN CLUSTERS 02/22/2025 7:52 AM EDT [facility] Wound Culture/Smear Many METHICILLIN RESISTANT STAPH AUREUS(A) 02/23/2025 10:57 AM EDT [facility] Wound Culture/Smear Voalted to Consuelo burkett Evangeline 3. 02/23/2025 10:57 AM EDT [facility] Other (Abscess) 02/21/2025 4 :48 PM EDT 02/21/2025 5:02 PM EDT Comment:LEFT FOREARM ABSCESS Narrative Organism Antibiotic Method Susceptibility Methicillin Resistant Staphylococcus aureus Penicillin G MING METHOD >=0.5: Resistant Methicillin Resistant Staphylococcus aureus Clindamycin MING METHOD <=0.25: Susceptible Methicillin Resistant Staphylococcus aureus Erythromycin MING METHOD >=8: Resistant Methicillin Resistant Staphylococcus aureus Gentamicin MING METHOD <=0.5: Susceptible Methicillin Resistant Staphylococcus aureus inducible clindamycin MING METHOD Negative Methicillin Resistant Staphylococcus aureus Levofloxacin MING METHOD 0.25: Susceptible Methicillin Resistant Staphylococcus aureus Linezolid MING METHOD 2: Susceptible Methicillin Resistant Staphylococcus aureus Oxacillin(methicillin) MING METHOD >=4: Resistant Methicillin Resistant Staphylococcus aureus Rifampin MING METHOD <=0.5: Susceptible Methicillin Resistant Staphylococcus aureus Tetracycline MING METHOD <=1: Susceptible Methicillin Resistant Staphylococcus aureus Trimethoprim/sulfamethoxa zole MING METHOD <=10: Susceptible Methicillin Resistant Staphylococcus aureus Vancomycin MING METHOD 1: Susceptible Methicillin Resistant Staphylococcus aureus Cefoxitin MING METHOD Positive Comment: Ashley Rivero PA-C MICROBIOLOGY - GENERAL ORDERABLES Edited Result - Final [address] [address] * US BEDSIDE (02/21/2025 4:04 PM EDT) Anatomical Region Laterality Modality Ultrasound Narrative 02/21/2025 4:04 PM EDT Rafael Patiño MD 02/22/2025 1:10 AM Bedside Ultrasound Date/Time: 02/21/2025 4:04 PM Performed by: Ashley Rivero PA-C Authorized by: Ashley Rivero PA-C Exam Type: Soft Tissue Soft Tissue Exam [...] collection Images: Images Saved: Yes Accession Number: [id number] Ashley Rivero PA-C IMG POINT OF CARE EXAMS Final Result * CT ABDOMEN/PELVIS WITH CONTRAST (02/21/2025 3:21 PM EDT) MGB IMG WELDING ROD COATER COMMENT Proximal right ureteral calculus causing moderate hydronephrosis [facility] Anatomical Region Laterality Modality Abdomen, Pelvis Computed Tomogra phy 02/21/2025 4:18 PM EDT Impressions 02/21/2025 4:52 PM EDT 1. Proximal right ureteral calculus causing moderate collecting system dilatation and evidence of obstructive nephropathy. 2. Enlarged prostate gland with bladder trabeculations. A clinically significant result was initiated on 02/21/2025 4:52 PM, Message ID [id number]. ATTESTATION: I, Jacquie Olmos as teaching physician, have reviewed the images for this case and if necessary edited the report originally created by August Guy. Narrative 02/21/2025 4:[address] ABDOMEN/PELVIS WITH CONTRAST Referring clinician's provided indication for this examination in Epic: * RLQ abdominal pain, appendicitis suspected (Age >= 14y) TECHNIQUE: Multidetector-row CT of the abdomen and [...] causing moderate collecting system dilatation, mild perinephric fat stranding, and urothelial thickening. The right nephrogram is delayed indicating physiologically significant obstruction. Nonobstructing calculus measuring 4 mm in the right lower pole. 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 The left kidney is normal in appearance. Bowel: No bowel wall thickening or dilatation. Normal appendix. Colonic diverticulosis. Peritoneum/Retroperitoneum: No pneumoperitoneum or free fluid. Lymph Nodes: No lymphadenopathy. Pelvic Organs/Bladder: Enlarged prostate gland. Circumferential bladder wall thickening consistent with trabeculations from chronic bladder outlet obstruction. Incidental note made of a tiny bladder diverticulum at the 9:00 position. Vessels: No abdominal aortic aneurysm. The major mesenteric branches are patent. Atherosclerosis. Bones/Soft Tissues: Left laminectomies at L3 and L4, with right pedicle screws at L3 and L4. No acute displaced fracture or destructive osseous lesion. Degenerative changes in the spine Procedure Note Jacquie Joe MD - 02/21/2025 CT ABDOMEN/PELVIS WITH CONTRAST Referring clinician's provided indication for this examination in Epic: *RLQ abdominal pain, appendicitis suspected (Age >= 14y) TECHNIQUE: Multidetector-row CT of the abdomen and pelvis was performedafter administration of intravenous contrast using tailored dosemodulation techniques. Images were reconstructed in the axial, coronal,and sagittal planes. COMPARISON: CT ABDOMEN/PELVIS WITH CONTRAST FINDINGS: Lower Chest: No consolidation or pleural effusions. Unchanged 7 mmsubpleural nodule in the left lung bases unchanged since 2019, benign. Liver: No discrete mass. Tiny hypodensity in the left hepatic lobe is toosmall to characterize. Biliary: Normal gallbladder. No biliary ductal dilatation. Spleen: No splenomegaly or focal lesions. Pancreas: No masses or ductal dilatation. Adrenal Glands: No nodules. Kidneys/Ureters: Proximal right ureteral calculus measuring 8 mm causingmoderate collecting system dilatation, mild perinephric fat stranding, andurothelial thickening. The right nephrogram is delayed indicatingphysiologically significant obstruction. Nonobstructing calculus measuring4 mm in the right lower pole. Incidental note of duplicated rightcollecting system which converges more distally into a single ureter. Theleft kidney is normal in appearance. Bowel: No bowel wall thickening or dilatation. Normal appendix. Colonicdiverticulosis. Peritoneum/Retroperitoneum: No pneumoperitoneum or free fluid. Lymph Nodes: No lymphadenopathy. Pelvic Organs/Bladder: Enlarged prostate gland. Circumferential bladderwall thickening consistent with trabeculations from chronic bladder outletobstruction. Incidental note made of a tiny bladder diverticulum at the9:00 position. Vessels: No abdominal aortic aneurysm. The major mesenteric branches arepatent. Atherosclerosis. Bones/Soft Tissues: Left laminectomies at L3 and L4, with right pediclescrews at L3 and L4. No acute displaced fracture or destructive osseouslesion. Degenerative changes in the spine IMPRESSION: 1. Proximal right ureteral calculus causing moderate collecting systemdilatation and evidence of obstructive nephropathy. 2. Enlarged prostate gland with bladder trabeculations. A clinically significant result was initiated on 02/21/2025 4:52 PM,Message ID [id number]. ATTESTATION: I, Jacquie Olmos as teaching physician, have reviewed theimages for this case and if necessary edited the report originally createdby August Guy. Ashley Rivero PA-C IMG CT ABD/PELVIS Final Result * (ABNORMAL) LFTs (hepatic panel) (02/21/2025 1:35 PM EDT) Only the most recent of2 resultswithin the time period is included. ALKALINE PHOSPHATASE 127(H) 39 - 117 U/L [facility] TOTAL BILIRUBIN 0.6 0.0 - 1.2 mg/dL [facility] DIRECT BILIRUBIN 0.2 0.0 - 0.2 mg/dL [facility] Bilirubin (Indirect) 0.4 0 - 1.5 mg/dL [facility] AST 28 0 - 37 U/L [facility] ALT 18 0 - 40 U/L [facility] TOTAL PROTEIN 8.0 6.5 - 8.0 g/dL [facility] ALBUMIN 4.5 3.9 - 4.8 g/dL [facility] GLOBULIN 3.5 1 - 4.8 g/dL [facility] A/G Ratio 1.29 1.00 - 4.80 RATIO [facility] Blood 02/21/2025 1:35 PM EDT 02/21/2025 1:43 PM EDT Kim Paulson PA-C LAB BLOOD ORDERABLES Final R esult [address] [address] * Lipase (02/21/2025 1:35 PM EDT) Only the most recent of2 resultswithin the time period is included. LIPASE 32 16 - 63 U/L [facility] Blood 02/21/2025 1:35 PM EDT 02/21/2025 1:43 PM EDT us Kim Paulson PA-C LAB BLOOD ORDERABLES Final R esult [address] [address] * US BEDSIDE (01/24/2025 9:29 PM EDT) [...] collection Images: Images Saved: Yes Accession Number: [id number] us Chadwick La DO IMG POINT OF CARE EXAMS Final Result * CT ABDOMEN/PELVIS WITH CONTRAST (12/17/2024 1:09 [...] Additional 4 mm nonobstructive right lower polecalculus. Pham Lopez PA-C IMG CT ABD/PELVIS Final Res ult from Last 3 Months Additional Health Concerns Infection Onset Date Last Indicated MRSA 02/21/2025 02/22/2025 Insurance [id number] [place] [address] MEDICARE PART A & B [facility] MEDICARE [facility]PLACEMENT [facility] [id number] [place] [address] MEDICARE PART A & B [facility] [place] MEDICARE REPLACEMENT [facility] [id number] [place] [address] MEDICARE PART A & B MEDICARE PART A & B MEDICARE PART A & B [employer] PPO MEDICARE REPLAC[facility] [address] [place] [address] MEDICARE PART A & [facility] [place] [address] MEDICARE PART A & B [employer] PPO MEDICARE REPLACEMENT [facility] [address] [place] [address] MEDICARE PART A & B [address] [place] [address] MEDICARE PART A & B Member Subscriber Plan / Payer (Ef fective 2010-Present) Name:Isaias Miller Member ID:[id number] Relation to Subscriber:Self Name:Isaias Miller Subscriber ID:[id number] Payer ID:[id number] Group ID:Not on file Type:Medicare Address: [facility] [employer] [facility] [employer] [facility] [address] [place] [address] [employer] PPO MEDICARE REPLACEMENT [facility] [address] [place] [address] * Guarantor: Isaias Miller Account Type Relation to Patient Date of Phone Billing Address Personal/Family Self 1960 [address] [place] [address] * Guarantor: Isaias Miller Account Type Relation to Patient Date of Phone Billing Address Personal/Family Self 1960 [address] [place] [address] * Guarantor: Isaias Miller Account Type Relation to Patient Date of Phone Billing Address Personal/Family Self 1960 [address] [place] [address] * Guarantor: Isaias Miller Account Type Relation to Patient Date of Phone Billing Address Personal/Family Self 1960 [address] [place] [address] * Guarantor: Isaias Miller Account Type Relation to Patient Date of Phone Billing Address Personal/Family Self 1960 [address] [place] [address] * Guarantor: Isaias Miller Account Type Relation to Patient Date of Phone Billing Address Personal/Family Self 1960 [address] [place] [address] Advance Directives For more information, please contact: [phone] (9AM - 5PM [facility], Friday-Friday) Documents on File Type Date Recorded Patient Jailer Chief Expl anation Healthcare Proxy 09/25/2020 4:16 PM Healthcare Proxy 09/24/2020 10:23 AM healt h care proxy * Full Code (Latest Code Status on File) Date Activated Date Inactivated Comments 02/27/2025 5:04 AM Question Answer Comments Code Status Confirmed With: Patient * Full Code Date Activated Date Inactivated Comments 02/21/2025 8:38 PM 02/27/2025 5:04 AM Question Answer Comments Code Status Confirmed With: Patient * Full Code Date Activated Date Inactivated Comments 09/21/2020 2:53 AM 02/21/2025 8:38 PM Question Answer Comments Code Status Confirmed With: Patient Healthcare Agents on File Name Relationship Healthcare Agent Relationshi p Communication Amrita Miller Daughter .Primary Health Care Agent (Proxy form on file) Care Teams Software Quality Specialist Relationship Specialty Start Date End Date Pcp, Unknown PCP - General 05/10/24 Additional Source Comments The information contained in this document represents components of the legal health record. It is not the complete legal health record.[facility]
--- OUTSIDE RECORDS SUMMARY | 2025-03-10 15:31 | XMS_ITS | Encounter Summary ---
Author Organization [facility] Address [address] [place] [phone] Phone Care Team Providers Care Emergency Room Tech Name Role Phone Pcp, Unknown Primary Care Provider Unavailabl e Encounter Details Date Type Department Care Team ([facility] st Contact Info) Description 03/07/2025 Procedure Pass OR Admitting Dept - Virtual Department [address] [place] [address] Social History Tobacco Use Types Packs/Day Years [...] Author No Risk Indicated 03/08/2025 5:01 AM [facility]AR[facility] Earnestine Norman RN * [place] Suicide Severity Rating Scale (Screener/Recent Self-Report) Question Answer Date of Assessment Author 1. Wish to be (Past 1 Month) No 025 5:01 AM Earnestine Quijano, SILVIANO 2. Non-Specific Active Suici kervin Thoughts (Past 1 Month) No 03/08/2025 5:01 AM SHARONT Hodan Galloway ra, RN 6. Suicidal Behavior (Lifetime) No 5:01 AM Earnestine Quijano, RN documented as of this encounter Plan of Treatment Not on file documented as of this encounter Visit Diagnoses Not on filedocumented in this encounter Additional Health Concerns Infection Onset Date Last Indicated Resolved Time MRSA 02/21/2025 02/22/2025 documented as of this encounter Care Teams Emergency Room Tech Relationship Specialty Start Date End Date Pcp, Unknown PCP - General 05/10/24 documented as of this encounter Additional Source Comments The information contained in this document represents components of the legal health record. It is not the complete legal health record.[facility]
--- OUTSIDE RECORDS SUMMARY | 2025-03-10 15:31 | XMS_ITS | Encounter Summary ---
Author Organization [facility] Address [address] [place] [address] [place] [address] Phone Care Team Providers Care Podiatric Technician Name Role Phone Pcp, Unknown Primary Care Provider Ary Alford MD Primary Care Provider [phone] Yanet Pineda NP Primary Care Provider [phone] Pcp, Unknown Primary Care Provider Skyla fields Encounter Details Date Type Department Care Team (Late st Contact Info) Description 09/20/2020 Procedure Pass [facility], Ct Scan - [facility] [address] [place] [address] Social History Tobacco Use Types Packs/Day Years [...] 10:02 PM EDT Valeria Alcala RN * [place] Suicide Severity Rating Scale (Screener/Recent Self-Report) Question [...] documented as of this encounter Care Teams Podiatric Technician Relationship Specialty Start Date End Date Pcp, Unknown PCP - General 07/03/20 09/23/20 Ary Ritchie MD [address] [place] [address] [email or web address] PCP - General Family Medicine 09/24/20 12/22/23 Yanet Pineda NP [address] [place] [address] [place] [address] PCP - General Nurse Practitioner 12/23/23 05/09/24 Pcp, Unknown PCP - General 05/10/24 documented as of this encounter Additional Source Comments The information contained in this document represents components of the legal health record. It is not the complete legal health record.[facility]
--- OUTSIDE RECORDS SUMMARY | 2025-03-10 15:31 | XMS_ITS | Encounter Summary ---
Author Organization [facility] Address [address] [place] [address] Phone Care Team Providers Care Lap Welder Name Role Phone Pcp, Unknown Primary Care Provider Ary Alford MD Primary Care Provider Pcp, Unknown Primary Care Provider Ary Alford MD Primary Care Provider [phone] Yanet Pineda NP Primary Care Provider [phone] Pcp, Unknown Primary Care Provider Unavailangeles e Encounter Details Date Type Department Care Team (Late st Contact Info) Description 03/24/2020 Procedure Pass [facility], Ct Scan - [address] [address] Social History Tobacco Use Types Packs/Day Years [...] documented as of this encounter Care Teams Lap Welder Relationship Specialty Start Date End Date Pcp, Unknown PCP - General 03/17/20 05/12/20 Ary Ritchie MD [address] [place] [address] [email or web address] PCP - General Family Medicine 05/13/20 07/02/20 Pcp, Unknown PCP - General 07/03/20 09/23/20 Ary Ritchie MD [address] [place] [address] [email or web address] PCP - General Family Medicine 09/24/20 12/22/23 Yanet Pineda NP [address] [place] [address] [place] [address] PCP - General Nurse Practitioner 12/23/23 05/09/24 Pcp, Unknown PCP - General 05/10/24 documented as of this encounter Additional Source Comments The information contained in this document represents components of the legal health record. It is not the complete legal health record.[facility]
--- OUTSIDE RECORDS SUMMARY | 2025-03-10 15:31 | XMS_ITS | Encounter Summary ---
Author Organization [facility] Address [address] [place] [address] [place] [address] Phone Care Team Providers Care Preschool Teacher Assistant Name Role Phone Pcp, Unknown Primary Care Provider Ary Alford MD Primary Care Provider Yanet Pineda NP Primary Care Provider [phone] Pcp, Unknown Primary Care Provider Skyla fields Encounter Details Date Type Department Care Team (Late st Contact Info) Description 09/20/2020 Procedure Pass [facility], Ct Scan - [facility] [address] [place] [address] Social History Tobacco Use Types Packs/Day Years [...] 10:02 PM EDT Valeria Alcala RN * [place] Suicide Severity Rating Scale (Screener/Recent Self-Report) Question [...] documented as of this encounter Care Teams Preschool Teacher Assistant Relationship Specialty Start Date End Date Pcp, Unknown PCP - General 07/03/20 09/23/20 Ary Ritchie MD [address] [place] [address] [email or web address] PCP - General Family Medicine 09/24/20 12/22/23 Yanet Pineda NP [address] [place] [address] [place] [address] PCP - General Nurse Practitioner 12/23/23 05/09/24 Pcp, Unknown PCP - General 05/10/24 documented as of this encounter Additional Source Comments The information contained in this document represents components of the legal health record. It is not the complete legal health record.[facility]
--- OUTSIDE RECORDS SUMMARY | 2025-03-10 15:31 | XMS_ITS | Encounter Summary ---
Author Organization [facility] Address [address] [place] [address] [place] [address] Phone Care Team Providers Care Criminal Records Technician Name Role Phone Ary Ritchie MD Primary Care Provider [phone] Pcp, Unknown Primary Care Provider Unavailabl e Ary Ritchie MD Primary Care Provider [phone] Yanet Pineda NP Primary Care Provider [phone] Pcp, Unknown Primary Care Provider Unavailabl e Encounter Details Date Type Department Care Team (Late st Contact Info) Description 05/13/2020 Procedure Pass [facility], Ct Scan - [address] [address] Social History Tobacco Use Types Packs/Day Years [...] 7:16 PM EST Radha Blum RN * [place] Suicide Severity Rating Scale (Screener/Recent Self-Report) Question [...] documented as of this encounter Care Teams Criminal Records Technician Relationship Specialty Start Date End Date Ary Ritchie MD [address] [place] [address] [email or web address] PCP - General Family Medicine 05/13/20 07/02/20 Pcp, Unknown PCP - General 07/03/20 09/23/20 Ary Ritchie MD [address] [place] [address] PCP - General Family Medicine 09/24/20 12/22/23 Yanet Pineda NP [address] [place] [address] [place] [address] PCP - General Nurse Practitioner 12/23/23 05/09/24 Pcp, Unknown PCP - General 05/10/24 documented as of this encounter Additional Source Comments The information contained in this document represents components of the legal health record. It is not the complete legal health record.[facility]
--- OUTSIDE RECORDS SUMMARY | 2025-03-10 15:31 | XMS_ITS | Encounter Summary ---
Author Organization [facility] Address [address] [place] [address] Phone Care Team Providers Care At&T Retailer Sales Consultant Name Role Phone Pcp, Unknown Primary Care Provider Ary Alford MD Primary Care Provider Pcp, Unknown Primary Care Provider Ary Alford MD Primary Care Provider [phone] Yanet Pineda NP Primary Care Provider [phone] Pcp, Unknown Primary Care Provider Unavailangeles e Encounter Details Date Type Department Care Team (Late st Contact Info) Description 03/17/2020 Procedure Pass [facility], Ct Scan - [address] [address] Social History Tobacco Use Types Packs/Day Years [...] documented as of this encounter Care Teams At[employer]T Retailer Sales Consultant Relationship Specialty Start Date End Date Pcp, Unknown PCP - General 03/17/20 05/12/20 Ary Ritchie MD [address] [place] [address] [email or web address] PCP - General Family Medicine 05/13/20 07/02/20 Pcp, Unknown PCP - General 07/03/20 09/23/20 Ary Ritchie MD [address] [place] [address] [email or web address] PCP - General Family Medicine 09/24/20 12/22/23 Yanet Pineda NP [address] [place] [address] [place] [address] PCP - General Nurse Practitioner 12/23/23 05/09/24 Pcp, Unknown PCP - General 05/10/24 documented as of this encounter Additional Source Comments The information contained in this document represents components of the legal health record. It is not the complete legal health record.[facility]
--- OUTSIDE RECORDS SUMMARY | 2025-03-10 15:32 | XMS_ITS | Encounter Summary ---
Author Organization [facility] Address [address] [place] [address] [place] [address] Phone Care Team Providers Care Fiber Design Engineer Name Role Phone Ary Ritchie MD Primary Care Provider Yanet Pineda NP Primary Care Provider [phone] Pcp, Unknown Primary Care Provider Unavailabl e Encounter Details Date Type Department Care Team (Late st Contact Info) Description 11/29/2021 Procedure Pass [facility], Ct Scan - [facility] [address] [place] [address] Social History Tobacco Use Types Packs/Day Years [...] Author No Risk Indicated 11/29/2021 2:51 AM Tessie Mccartney RN * [place] Suicide Severity Rating Scale (Screener/Recent Self-Report) Question Answer Date of Assessment Author 1. Wish to be (Past 1 Month) No 11/29/2021 2:51 AM Cassidy Dooley RN 2. Non-Specific Active Suicidal Thoughts (Past 1 Month) No 11/29/2021 2:51 AM EDT Cassidy Ureña RN 6. Suicidal Behavior (Lifetime) No 11/29/2021 2:51 AM EDT Cassidy Ureña RN documented as of this encounter Plan of Treatment Not on file documented as of this encounter Visit Diagnoses Not on filedocumented in this encounter Additional Health Concerns Infection Onset Date Last Indicated Resolved Time MRSA 02/21/2025 02/22/2025 documented as of this encounter Care Teams Fiber Design Engineer Relationship Specialty Start Date End Date Ary Ritchie MD [address] [place] [address] [email or web address] PCP - General Family Medicine 09/24/20 12/22/23 Yanet Pineda NP [address] [place] [address] [place] [address] PCP - General Nurse Practitioner 12/23/23 05/09/24 Pcp, Unknown PCP - General 05/10/24 documented as of this encounter Additional Source Comments The information contained in this document represents components of the legal health record. It is not the complete legal health record.[facility]
--- OUTSIDE RECORDS SUMMARY | 2025-03-10 15:32 | XMS_ITS | Encounter Summary ---
Author Organization [facility] Address [address] [facility] [address] [place] [address] Phone Care Team Providers Care Fleet Service Manager Name Role Phone Pcp, Unknown Primary Care Provider Unavailabl e Encounter Details Date Type Department Care Team (Late st Contact Info) Description 12/16/2024 Procedure Pass [facility], Ct Scan - [address] [address] Social History Tobacco Use Types Packs/Day Years [...] Risk Indicated 12/16/2024 7:37 PM EDT Brennan Headley RN * [place] Suicide Severity Rating Scale (Screener/Recent Self-Report) Question Answer Date of Assessment Author 1. Wish to be (Past 1 Month) No 025 7:37 PM EDT Brennan Headley RN 2. Non-Specific Active Suici kervin Thoughts (Past 1 Month) No 12/16/2024 7:37 PM EDT Brennan Headley, SILVIANO 6. Suicidal Behavior (Lifetime) No 7:37 PM EDT Brennan Headley, SILVIANO documented as of this encounter Plan of Treatment Not on file documented as of this encounter Visit Diagnoses Not on filedocumented in this encounter Additional Health Concerns Infection Onset Date Last Indicated Resolved Time MRSA 02/21/2025 02/22/2025 documented as of this encounter Care Teams Fleet Service Manager Relationship Specialty Start Date End Date Pcp, Unknown PCP - General 05/10/24 documented as of this encounter Additional Source Comments The information contained in this document represents components of the legal health record. It is not the complete legal health record.[facility]
--- OUTSIDE RECORDS SUMMARY | 2025-03-10 15:32 | XMS_ITS | Encounter Summary ---
Author Organization [facility] Address [address] [place] [address] [place] [address] Phone Care Team Providers Care Advertising Specialist Name Role Phone rAy Ritchie MD Primary Care Provider Yanet Pineda NP Primary Care Provider [phone] Pcp, Unknown Primary Care Provider Unavailabl e Encounter Details Date Type Department Care Team (Late st Contact Info) Description 11/29/2021 Procedure Pass [facility], Ct Scan - [facility] [address] [place] [address] Social History Tobacco Use Types Packs/Day Years [...] 11/29/2021 2:51 AM Tessie Mccartney RN * [place] Suicide Severity Rating Scale (Screener/Recent Self-Report) Question [...] documented as of this encounter Care Teams Advertising Specialist Relationship Specialty Start Date End Date Ary Ritchie MD [address] [place] [address] PCP - General Family Medicine 09/24/20 12/22/23 Yanet Pineda NP [address] [place] [address] [place] [address] PCP - General Nurse Practitioner 12/23/23 05/09/24 Pcp, Unknown PCP - General 05/10/24 documented as of this encounter Additional Source Comments The information contained in this document represents components of the legal health record. It is not the complete legal health record.[facility]
--- OUTSIDE RECORDS SUMMARY | 2025-03-10 15:32 | XMS_ITS | Encounter Summary ---
Author Organization [facility] Address [address] [facility] [address] [place] [address] Phone Care Team Providers Care Pan Devulcanizer Name Role Phone Pcp, Unknown Primary Care Provider Unavailabl e Encounter Details Date Type Department Care Team (Late st Contact Info) Description 02/27/2025 Procedure Pass [facility], Ct Scan - [address] [address] Social History Tobacco Use Types Packs/Day Years [...] as food, clothing, or medical care? No 02/27/2025 In the past 12 months have y ou been in a relationship with a person who hurts, threatens, or tries to control you? No 02/27/2025 Are you denied basic needs s uch as food, clothing, or medical care? No 02/27/2025 In the past 12 months have y ou been in a relationship with a person who hurts, threatens, or tries to control you? No 02/27/2025 Sex and Gender Information Value Date Recorded Sex Assigned at Male 06/04/2018 8:18 PM EST Legal Sex Male 6:28 PM EDT Gender Identity Male 06/04/2018 8:18 PM EST Sexual Orientation Choose not to disclose 2019 6:11 PM EST documented as of this encounter Functional Status * Calculated C-SSRS Risk Score (Lifetime/Recent) Answer Date of Assessment Author No Risk Indicated 02/27/2025 11:04 AM EDT Dina Lutz RN * [place] Suicide Severity Rating Scale (Screener/Recent Self-Report) Question Answer Date of Assessment Author 1. Wish to be (Past 1 Month) No 02/27/2025 11:04 AM EDT Dina Delong RN 2. Non-Specific Active Suici kervin Thoughts (Past 1 Month) No 02/27/2025 11:04 AM EDT Jerod Delong RN 6. Suicidal Behavior (Lifetime) No 11:04 AM SHARONT Dina Delong RN documented as of this encounter Plan of Treatment Not on file documented as of this encounter Visit Diagnoses Not on filedocumented in this encounter Additional Health Concerns Infection Onset Date Last Indicated Resolved Time MRSA 02/21/2025 02/22/2025 documented as of this encounter Care Teams Pan Devulcanizer Relationship Specialty Start Date End Date Pcp, Unknown PCP - General 05/10/24 documented as of this encounter Additional Source Comments The information contained in this document represents components of the legal health record. It is not the complete legal health record.[facility]
--- OUTSIDE RECORDS SUMMARY | 2025-03-10 15:32 | XMS_ITS | Patient Health Record ---
Author Organization [facility] Address [address] [place] [address] Care Team Providers Care Tours Hostess Name Role Phone Aris Benoit Primary Care Provider Migration, Provider Unavailable Unavailable Allergies Allergen (clinical drug ingredient) Drug/Non Drug Allergy documented on EMR Reaction Allergy Type Onset Date Status sulfamethoxazole / trimethoprim Bactrim hives Drug Allergy Active Reason For Referral No Information Medications Medication SIG (Take, Route, Frequency, Duration) Notes Start Date End Date Status Zolpidem Tartrate 10 MG 1 tab(s) orally [...] review and pick correct strength-formulatio n from Pergunter options. If intended option is not shown, discontinue and re-order from Quick Search* Active QUEtiapine Fumarate 25 MG 1 tab(s) orally qhs for nightmares / insomnia for 28 day(s) Active Docusate Sodium 100 MG 1 cap(s) orally 2 times a day PRN Active Ketorolac Tromethamine 10 MG 1 tab(s) orally 3 times a day - first dose 07/04 in AM with food for 4 day(s) 07/03/2021 Active Aspirin 81 MG 1 tab(s) orally once a day for 90 day(s) Active Catapres 0.1 MG 1 TAB(S) ORALLY 2 TIMES A DAY for 30 DAY(S) *Please review and pick correct strength-formulatio n from Pergunter options. If intended option is not shown, discontinue and re-order from Quick Search* 07/03/2021 Active Omeprazole 20 MG 1 cap(s) orally once a day for 30 days Active Lisinopril 10 MG 1 tab(s) orally once a day for 30 days Active amLODIPine Besylate 5 MG 1 tab(s) orally once a day for 30 day(s) 07/03/2021 Active Sertraline HCl 50 MG 1 tab(s) orally once a day for 30 day(s) Active Immunizations Vaccine Route Administration Date [...] kesha t Patient counseled on the logan gers of tobacco use and advised to quit: [...] Risk Notes Problem Manic bipolar I disorder (82362234) Bipolar disorder, current episode hypomanic (F31.0) Active confirmed Problem Posttraumatic stress disorder (19675967) Post-traumatic stress disorder, acute (F43.11) Active confirmed Problem Essential hypertension (79291503) Essential (primary) hypertension (I10) Active confirmed Problem Lipid-rich atherosclerosis of coronary artery (654759278532966) Coronary atherosclerosis due to lipid rich plaque (I25.83) Active confirmed Problem Pain of right shoulder region (finding) (4720115694) Pain in right shoulder (M25.511) Active confirmed Problem Solitary pulmonary nodule (542449625) Solitary pulmonary nodule (R91.1) Active confirmed Problem Body mass index 25-29 - overweight (091461891) Body mass index [BMI] 26.0-26.9, adult (Z68.26) Active confirmed Encounters Encounter Location Date Provider Diagnosis [address] [address] 01/22/2025 Provider Migration Essential (primary) hypertension I10 and Pain in right shoulder M25.511 Assessments Encounter Date Diagnosis (ICD Code) Assessment Notes Treatment Notes Treatment Clinical Notes Section Notes 01/22/2025 Essential (primary) hypertension (ICD-10 - I10) 01/22/2025 Pain in right shoulder (ICD-10 - M25.511) Plan Of Treatment No Information Insurance Providers Payer Name Payer Address Payer Phone Subscriber Number Group Number Insured Name Patient Relationship to Insured Coverage Start Date Coverage End Date [facility] [address] [place] [address] [id number] Isaias Miller Self - patient is the insured 1 1 [place] C3 [address] [place], [place] [id number] Isaias Miller Self - patient is the insured 2 [place] Part [place] [employer] [address] [place] [address] [id number] Isaias Miller Self - patient is the insured 1 Medications Administered Medication Instructions Date of Administration Dosage Notes Ketorolac 07/03/2021 30 mg Lot [facility] [id number] Medical (General) History Medical History History ICD Code CVA - was treated at [facility] HTN Surgical History Surgery Date(Month/Year) Back surgery 1979 [facility] - [facility] 2016 Hospitalization History Reason Date(Month/Year) APTU 16 days - Suicide attemot after a r ape 2018
--- OUTSIDE RECORDS SUMMARY | 2025-03-10 15:32 | XMS_ITS | Encounter Summary ---
Author Organization [facility] Address [address] [place] [address] [place] [address] Phone Care Team Providers Care Revival Clerk Name Role Phone Ary Ritchie MD Primary Care Provider Yanet Pineda NP Primary Care Provider [phone] Pcp, Unknown Primary Care Provider Unavailabl e Encounter Details Date Type Department Care Team (Late st Contact Info) Description 01/16/2021 Procedure Pass [facility], Ct Scan - [facility] [address] [place] [address] Social History Tobacco Use Types Packs/Day Years [...] 01/16/2021 8:06 AM Gely Gomes RN * [place] Suicide Severity Rating Scale (Screener/Recent Self-Report) Question Answer Date of Assessment Author 1. Wish to be (Past 1 Month) No 01/16/2021 8:06 AM Belem Tamayo RN 2. Non-Specific Active Suicidal Thoughts (Past 1 Month) No 01/16/2021 8:06 AM SHARONT Belem Tom RN 6. Suicidal Behavior (Lifetime) No 01/16/2021 8:06 AM Belem Tamayo RN documented as of this encounter Plan of Treatment Not on file documented as of this encounter Visit Diagnoses Not on filedocumented in this encounter Additional Health Concerns Infection Onset Date Last Indicated Resolved Time MRSA 02/21/2025 02/22/2025 documented as of this encounter Care Teams Revival Clerk Relationship Specialty Start Date End Date Ary Ritchie MD [address] [place] [address] [email or web address] PCP - General Family Medicine 09/24/20 12/22/23 Yanet Pineda NP [address] [place] [address] [place] [address] PCP - General Nurse Practitioner 12/23/23 05/09/24 Pcp, Unknown PCP - General 05/10/24 documented as of this encounter Additional Source Comments The information contained in this document represents components of the legal health record. It is not the complete legal health record.[facility]
--- OUTSIDE RECORDS SUMMARY | 2025-03-10 15:32 | XMS_ITS | Encounter Summary ---
Author Organization [facility] Address [address] [facility] [address] [place] [phone] Phone Care Team Providers Care Ornamental Machine Operator Name Role Phone Pcp, Unknown Primary Care Provider Unavailabl e Encounter Details Date Type Department Care Team (Late st Contact Info) Description 02/21/2025 Procedure Pass [facility] - [address] [address] Social History Tobacco Use Types Packs/Day Years [...] got money to buy more. Never True 02/21/2025 Within the past 6 months the food we bought just didn't last and we didn't have enough money to get more. Never True Residential Stability Answer Date Recor ded What is your housing situation today? I have shraddha sing 02/21/2025 How many times have you move d in the past 12 months? Zero (I did not move) 02/21/2025 Paying for Meds Answer Date Recorded Do you have trouble paying for medicines? No 02/21/2025 Paying Utility Bills Answer Date Record ed Do you have trouble paying your heating or elect ricity bill? No 02/21/2025 Transportation Answer Date Recorded Has the lack of transportati on kept you from medical appointments or from getting medications? No 02/21/2025 Digital Access Answer Date Recorded No 02/21/2025 Yes 02/21/2025 Do you have reliable internet access at home? Ye s 02/21/2025 Do you have a device (e.g., phone, tablet, computer) with a working camera? Yes 02/21/2025 Intimate Partner Violence Answer Date R ecorded Are you denied basic needs s uch as food, clothing, or medical care? No 02/21/2025 In the past 12 months have y ou been in a relationship with a person who hurts, threatens, or tries to control you? No 02/21/2025 Are you denied basic needs s uch as food, clothing, or medical care? No 02/21/2025 In the past 12 months have y ou been in a relationship with a person who hurts, threatens, or tries to control you? No 02/21/2025 Sex and Gender Information Value Date Recorded Sex Assigned at Male 06/04/2018 8:18 PM EST Legal Sex Male 6:28 PM EDT Gender Identity Male 06/04/2018 8:18 PM EST Sexual Orientation Choose not to disclose 2019 6:11 PM EST documented as of this encounter Functional Status * Calculated C-SSRS Risk Score (Lifetime/Recent) Answer Date of Assessment Author No Risk Indicated 02/21/2025 12:51 PM EDT Gely Bowens RN * Leon Suicide Severity Rating Scale (Screener/Recent Self-Report) Question Answer Date of Assessment Author 1. Wish to be (Past 1 Month) No 02/21/2025 12:51 PM EDT May Tom RN 2. Non-Specific Active Suicidal Thoughts (Past 1 Month) No 02/21/2025 12:51 PM SHARONT May Tom RN 6. Suicidal Behavior (Lifetime) No 02/21/2025 12:51 PM SHARONT May Tom RN documented as of this encounter Plan of Treatment Not on file documented as of this encounter Visit Diagnoses Not on filedocumented in this encounter Additional Health Concerns Infection Onset Date Last Indicated Resolved Time MRSA 02/21/2025 02/22/2025 documented as of this encounter Care Teams Ornamental Machine Operator Relationship Specialty Start Date End Date Pcp, Unknown PCP - General 05/10/24 documented as of this encounter Additional Source Comments The information contained in this document represents components of the legal health record. It is not the complete legal health record.[facility]
--- OUTSIDE RECORDS SUMMARY | 2025-03-10 15:32 | XMS_ITS | Encounter Summary ---
Author Organization [facility] Address [address] [place] [address] [place] [phone] Phone Care Team Providers Care Registered Veterinary Technician Name Role Phone Ary Ritchie MD Primary Care Provider Yanet Pineda NP Primary Care Provider Pcp, Unknown Primary Care Provider Unavailabl e Encounter Details Date Type Department Care Team (Late st Contact Info) Description 12/28/2020 Ancillary Orders Virtual Department [address] [place] [address] Ary Ritchie MD [address] [place] [address] [email or web address] Right shoulder pain, unspecified chronicity; Other instability, [...] instability, right shoulder documented in this encounter Additional Health Concerns Infection Onset Date Last Indicated Resolved Time MRSA 02/21/2025 02/22/2025 documented as of this encounter Care Teams Registered Veterinary Technician Relationship Specialty Start Date End Date Ary Ritchie MD [address] [place] [address] [email or web address] PCP - General Family Medicine 09/24/20 12/22/23 Yanet Pineda NP [address] [place] [address] [place] [address] PCP - General Nurse Practitioner 12/23/23 05/09/24 Pcp, Unknown PCP - General 05/10/24 documented as of this encounter Additional Source Comments The information contained in this document represents components of the legal health record. It is not the complete legal health record.[facility]
--- OUTSIDE RECORDS SUMMARY | 2025-03-10 15:32 | XMS_ITS | Encounter Summary ---
Author Organization [facility] Address [address] [place] [address] [place] [phone] Phone Care Team Providers Care Laborer Name Role Phone Ary Ritchie MD Primary Care Provider Yanet Pineda NP Primary Care Provider [phone] Pcp, Unknown Primary Care Provider Unavailabl e Encounter Details Date Type Department Care Team (Late st Contact Info) Description 09/10/2021 Transcribe Orders Virtual Department [address] [place] [address] Ary Ritchie MD [address] [place] [address] [email or web address] Solitary pulmonary nodule (Primary Dx) Social History [...] pulmonary nodule- Primary documented in this encounter Additional Health Concerns Infection Onset Date Last Indicated Resolved Time MRSA 02/21/2025 02/22/2025 documented as of this encounter Care Teams Laborer Relationship Specialty Start Date End Date Ary Ritchie MD [address] [place] [address] [email or web address] PCP - General Family Medicine 09/24/20 12/22/23 Yanet Pineda NP [address] [place] [address] [place] [address] PCP - General Nurse Practitioner 12/23/23 05/09/24 Pcp, Unknown PCP - General 05/10/24 documented as of this encounter Additional Source Comments The information contained in this document represents components of the legal health record. It is not the complete legal health record.[facility]
--- OUTSIDE RECORDS SUMMARY | 2025-03-10 15:32 | XMS_ITS | Encounter Summary ---
Author Organization [facility] Address [address] [facility] [address] [place] [phone] Phone Care Team Providers Care Equity Director Name Role Phone Pcp, Unknown Primary Care Provider Unavailabl e Encounter Details Date Type Department Care Team ([facility] st Contact Info) Description 02/22/2025 Procedure Pass [place] Admitting Dept - Virtual Department [address] [place] [address] Social History Tobacco Use Types Packs/Day Years [...] documented as of this encounter Care Teams Equity Director Relationship Specialty Start Date End Date Pcp, Unknown PCP - General 05/10/24 documented as of this encounter Additional Source Comments The information contained in this document represents components of the legal health record. It is not the complete legal health record.[facility]
--- OUTSIDE RECORDS SUMMARY | 2025-03-10 15:32 | XMS_ITS | Encounter Summary ---
Author Organization [facility] Address [address] [place] [phone] Phone Care Team Providers Care Boxing Instructor Name Role Phone Pcp, Unknown Primary Care Provider Ary Alford MD Primary Care Provider [phone] Yanet Pineda NP Primary Care Provider [phone] Pcp, Unknown Primary Care Provider Skyla fields Encounter Details Date Type Department Care Team (Late st Contact Info) Description 09/21/2020 Procedure Pass [facility], [address] [address] Social History Tobacco Use Types Packs/Day Years [...] documented as of this encounter Care Teams Boxing Instructor Relationship Specialty Start Date End Date Pcp, Unknown PCP - General 07/03/20 09/23/20 Ary Ritchie MD [address] [place] [address] [email or web address] PCP - General Family Medicine 09/24/20 12/22/23 Yanet Pineda NP [address] [place] [address] [place] [address] PCP - General Nurse Practitioner 12/23/23 05/09/24 Pcp, Unknown PCP - General 05/10/24 documented as of this encounter Additional Source Comments The information contained in this document represents components of the legal health record. It is not the complete legal health record.[facility]
== END 2025-03-10 13:36 | disposition home or self-care (01) ==
LOC: HO.HOS 12:42
PROVIDERS: Visit Provider Physician Assistant
DX: Z98.890 Other specified postprocedural states (principal)
CPT/HCPCS: 99024

== ENCOUNTER → 2025-03-10 12:41 | Outpatient (BNVA) | payer MEDICARE, SELFPAY | PROVIDERS: Visit Provider Physician Assistant | DX: Z98.890 Other specified postprocedural states (principal) | CPT/HCPCS: 99212 ==